=== PATIENT | male | born 1930 | race Caucasian/White ===

== ENCOUNTER → 2017-07-12 | Outpatient (CLI) | payer MEDICARE, OTHER ==
[2017-07-12 15:45] LABS: BILIRUBIN,URINE NEGATIVE (NEGATIVE); CLARITY,URINE CLEAR; COLOR,URINE YELLOW; GLUCOSE, URINE (UA) NEGATIVE (NEGATIVE); KETONES,URINE NEGATIVE (NEGATIVE); LEUKOCYTE ESTERASE ,URINE NEGATIVE (NEGATIVE); NITRITE,URINE NEGATIVE (NEGATIVE); PH,URINE 5 (5-9); PROTEIN,URINE 1+ (NEGATIVE); UROBILINOGEN,URINE NORMAL (NORMAL)
[2017-07-12 15:46] LABS: BASOPHILS % (AUTO) 0 % (0-10); EOSINOPHILS # (AUTO) 0.1 10^3/uL (0.0-0.3); EOSINOPHILS % (AUTO) 1 % (0-10); HEMATOCRIT 33 % (35-52); HEMOGLOBIN 10.1 G/DL (11.5-16.0); LYMPHOCYTES % (AUTO) 24 % (12-44); MEAN CORPUSCULAR HEMOGLOBIN 25 PG (25-34); MEAN CORPUSCULAR HGB CONC 30 G/DL (32-36); MEAN CORPUSCULAR VOLUME 81 FL (80-99); MEAN PLATELET VOLUME 9.2 FL (7.4-10.4); MONOCYTES # (AUTO) 0.5 X 10^3 (0.0-1.0); MONOCYTES % (AUTO) 6 % (0-12); NEUTROPHILS # (AUTO) 5.6 X 10^3 (1.8-7.8); NEUTROPHILS % (AUTO) 69 % (42-75); PLATELET COUNT 183 10^3/uL (130-400); RED BLOOD COUNT 4.11 10^6/uL (4.35-5.85); RED CELL DISTRIBUTION WIDTH 18.1 % (10.0-14.5); WHITE BLOOD COUNT 8.1 10^3/uL (4.3-11.0)
[2017-07-12 15:51] LABS: BACTERIA,URINE NEGATIVE /HPF
[2017-07-12 16:04] LABS: ALBUMIN 2.9 GM/DL (3.2-4.5); BILIRUBIN,TOTAL 0.3 MG/DL (0.1-1.0); CALCIUM 8.2 MG/DL (8.5-10.1); CREATININE SERUM 1.41 MG/DL (0.60-1.30); POTASSIUM 5.5 MMOL/L (3.6-5.0); TOTAL PROTEIN 5.4 GM/DL (6.4-8.2)
== END ==
LOC: EDSEX 15:36 → LABNPT 15:36
PROVIDERS: ATTEND Family Medicine
DX: R11.2 Nausea with vomiting, unspecified (principal); E78.5 Hyperlipidemia, unspecified
CPT/HCPCS: 80053; 81000; 85025

== ENCOUNTER → 2017-09-20 | Outpatient (CLI) | payer MEDICARE | LOC: LAB 12:20 | PROVIDERS: ATTEND Surgery | DX: E11.621 Type 2 diabetes mellitus with foot ulcer (principal); L97.512 Non-pressure chronic ulcer of other part of right foot with fat layer exposed | CPT/HCPCS: 36415; 83036 ==

== ENCOUNTER → 2017-09-20 | Outpatient (CLI) | payer MEDICARE | LOC: WOUNDCARE 09:25 | PROVIDERS: ATTEND Surgery | DX: L89.623 Pressure ulcer of left heel, stage 3 (principal); E11.621 Type 2 diabetes mellitus with foot ulcer; I70.235 Atherosclerosis of native arteries of right leg with ulceration of other part of foot; L97.512 Non-pressure chronic ulcer of other part of right foot with fat layer exposed; C44.219 Basal cell carcinoma of skin of left ear and external auricular canal; B91 Sequelae of poliomyelitis | CPT/HCPCS: 11042 ==

== ENCOUNTER → 2017-09-27 | Outpatient (CLI) | payer MEDICARE ==
--- NOTE | 2017-09-27 11:57 | Diagnostic Imaging Report ---
INDICATION: Peripheral vascular disease. FINDINGS: Noninvasive study performed. Segmental limb pressures showed unobtainable pressures in the right calf and ankle and digital level. Diminished signal and pressure on the left side in the digital region was seen, and pressures were not obtainable at the ankle region. There is degradation of the waveforms in the right calf and ankle and digital region. IMPRESSION: Findings compatible with significant peripheral vascular disease, worse on the right side as above. Consider CTA for further evaluation as warranted. Dictated by: Dictated on workstation # [id number]
== END ==
LOC: RAD 09:09
PROVIDERS: ATTEND Surgery
DX: C44.129 Squamous cell carcinoma of skin of left eyelid, including canthus (principal); I70.235 Atherosclerosis of native arteries of right leg with ulceration of other part of foot; E11.621 Type 2 diabetes mellitus with foot ulcer; L97.512 Non-pressure chronic ulcer of other part of right foot with fat layer exposed; L89.623 Pressure ulcer of left heel, stage 3; B91 Sequelae of poliomyelitis
CPT/HCPCS: 93923

== ENCOUNTER → 2017-10-04 | Outpatient (CLI) | payer MEDICARE | LOC: WOUNDCARE 09:58 | PROVIDERS: ATTEND Surgery | DX: E11.621 Type 2 diabetes mellitus with foot ulcer (principal); L89.623 Pressure ulcer of left heel, stage 3; L97.512 Non-pressure chronic ulcer of other part of right foot with fat layer exposed; I70.235 Atherosclerosis of native arteries of right leg with ulceration of other part of foot; C44.219 Basal cell carcinoma of skin of left ear and external auricular canal; B91 Sequelae of poliomyelitis | CPT/HCPCS: 11042 ==

== ENCOUNTER → 2017-10-10 | Outpatient (CLI) | payer MEDICARE | LOC: WOUNDCARE 13:47 | PROVIDERS: ATTEND Surgery | DX: E11.621 Type 2 diabetes mellitus with foot ulcer (principal); L97.512 Non-pressure chronic ulcer of other part of right foot with fat layer exposed; L89.623 Pressure ulcer of left heel, stage 3; I70.235 Atherosclerosis of native arteries of right leg with ulceration of other part of foot; C44.219 Basal cell carcinoma of skin of left ear and external auricular canal; B91 Sequelae of poliomyelitis | CPT/HCPCS: 99213 ==

== ENCOUNTER → 2017-10-18 | Outpatient (CLI) | payer MEDICARE | LOC: WOUNDCARE 09:42 | PROVIDERS: ATTEND Surgery | DX: E11.621 Type 2 diabetes mellitus with foot ulcer (principal); L89.623 Pressure ulcer of left heel, stage 3; L97.512 Non-pressure chronic ulcer of other part of right foot with fat layer exposed; I70.235 Atherosclerosis of native arteries of right leg with ulceration of other part of foot; C44.129 Squamous cell carcinoma of skin of left eyelid, including canthus; B91 Sequelae of poliomyelitis | CPT/HCPCS: 11042 ==

== ENCOUNTER → 2017-11-01 | Outpatient (CLI) | payer MEDICARE | LOC: WOUNDCARE 09:54 | PROVIDERS: ATTEND Surgery | DX: E11.621 Type 2 diabetes mellitus with foot ulcer (principal); L97.512 Non-pressure chronic ulcer of other part of right foot with fat layer exposed; I70.235 Atherosclerosis of native arteries of right leg with ulceration of other part of foot; B91 Sequelae of poliomyelitis | CPT/HCPCS: 99212 ==

== ENCOUNTER → 2017-11-22 | Outpatient (CLI) | payer MEDICARE | LOC: WOUNDCARE 10:43 | PROVIDERS: ATTEND Surgery | DX: L97.512 Non-pressure chronic ulcer of other part of right foot with fat layer exposed (principal); L03.031 Cellulitis of right toe; E11.621 Type 2 diabetes mellitus with foot ulcer; I70.235 Atherosclerosis of native arteries of right leg with ulceration of other part of foot; B91 Sequelae of poliomyelitis | CPT/HCPCS: 11042; 87070; 87075; 87077; 87186; 87205 ==

== ENCOUNTER → 2017-12-06 | Outpatient (CLI) | payer MEDICARE | LOC: WOUNDCARE 10:26 | PROVIDERS: ATTEND Surgery | DX: E11.621 Type 2 diabetes mellitus with foot ulcer (principal); I70.235 Atherosclerosis of native arteries of right leg with ulceration of other part of foot; L97.514 Non-pressure chronic ulcer of other part of right foot with necrosis of bone; B91 Sequelae of poliomyelitis | CPT/HCPCS: 11044 ==

== ENCOUNTER → 2017-12-12 | Outpatient (CLI) | payer MEDICARE | LOC: WOUNDCARE 10:29 | PROVIDERS: ATTEND Surgery | DX: E11.621 Type 2 diabetes mellitus with foot ulcer (principal); L97.512 Non-pressure chronic ulcer of other part of right foot with fat layer exposed; I70.235 Atherosclerosis of native arteries of right leg with ulceration of other part of foot; B91 Sequelae of poliomyelitis | CPT/HCPCS: 11042; 87070; 87075; 87077; 87205 ==

== ENCOUNTER → 2017-12-20 | Outpatient (CLI) | payer MEDICARE | LOC: WOUNDCARE 10:34 | PROVIDERS: ATTEND Surgery | DX: L97.512 Non-pressure chronic ulcer of other part of right foot with fat layer exposed (principal); E11.621 Type 2 diabetes mellitus with foot ulcer; I70.235 Atherosclerosis of native arteries of right leg with ulceration of other part of foot; B91 Sequelae of poliomyelitis | CPT/HCPCS: 11042 ==

== ENCOUNTER → 2017-12-25 | Outpatient (CLI) | payer MEDICARE | LOC: WOUNDCARE 13:35 | PROVIDERS: ATTEND Surgery | DX: E11.621 Type 2 diabetes mellitus with foot ulcer (principal); I70.235 Atherosclerosis of native arteries of right leg with ulceration of other part of foot; L97.512 Non-pressure chronic ulcer of other part of right foot with fat layer exposed; B91 Sequelae of poliomyelitis | CPT/HCPCS: 11042; 87070; 87075; 87205 ==

== ENCOUNTER → 2018-01-03 | Outpatient (CLI) | payer MEDICARE | LOC: WOUNDCARE 10:38 | PROVIDERS: ATTEND Surgery | DX: E11.621 Type 2 diabetes mellitus with foot ulcer (principal); L97.512 Non-pressure chronic ulcer of other part of right foot with fat layer exposed; I70.235 Atherosclerosis of native arteries of right leg with ulceration of other part of foot; B91 Sequelae of poliomyelitis | CPT/HCPCS: 11042 ==

== ENCOUNTER → 2018-01-10 | Outpatient (CLI) | payer MEDICARE | LOC: WOUNDCARE 10:34 | PROVIDERS: ATTEND Nurse Practitioner | DX: E11.621 Type 2 diabetes mellitus with foot ulcer (principal); L97.512 Non-pressure chronic ulcer of other part of right foot with fat layer exposed; I70.235 Atherosclerosis of native arteries of right leg with ulceration of other part of foot; B91 Sequelae of poliomyelitis | CPT/HCPCS: 11042 ==

== ENCOUNTER 2018-01-17 11:53 | Outpatient (RCR) | payer MEDICARE ==
[2018-01-10] MEDS: ACETAMINOPHEN 500 MG TAB (TYLENOL) PO PRN (12:51)
[2018-01-10] MEDS: FERRIC CARBOXYMALTOSE INJ 750 MG in NS (IVPB) 250 ML IV SCH (13:11)
[2018-01-10 14:45] VITALS: BP 116/74
[2018-01-17 11:50] VITALS: BP 135/63
[~2018-01-17 11:53] MED LIST: diphenhydrAMINE 50 MG/ML INJ (BENADRYL) IV PRN
[2018-01-17] MEDS: ACETAMINOPHEN 500 MG TAB (TYLENOL) PO PRN (12:01)
[2018-01-17] MEDS: FERRIC CARBOXYMALTOSE INJ 750 MG in NS (IVPB) 250 ML IV SCH (12:06)
[2018-01-17 12:50] VITALS: BP 131/75
== END 2018-01-17 13:23 | disposition home or self-care (01) ==
LOC: SDC 11:53
PROVIDERS: ATTEND Internal Medicine Nephrology
DX: D50.9 Iron deficiency anemia, unspecified (principal); D63.1 Anemia in chronic kidney disease; N18.3 Chronic kidney disease, stage 3 (moderate)
CPT/HCPCS: 96365; 96366; 96374; 96375

== ENCOUNTER → 2018-01-17 | Outpatient (CLI) | payer MEDICARE | LOC: WOUNDCARE 10:32 | PROVIDERS: ATTEND Surgery | DX: E11.621 Type 2 diabetes mellitus with foot ulcer (principal); I70.235 Atherosclerosis of native arteries of right leg with ulceration of other part of foot; L97.512 Non-pressure chronic ulcer of other part of right foot with fat layer exposed; B91 Sequelae of poliomyelitis | CPT/HCPCS: 11042 ==

== ENCOUNTER → 2018-01-24 | Outpatient (CLI) | payer MEDICARE | LOC: WOUNDCARE 10:46 | PROVIDERS: ATTEND Surgery | DX: E11.621 Type 2 diabetes mellitus with foot ulcer (principal); I70.235 Atherosclerosis of native arteries of right leg with ulceration of other part of foot; L97.512 Non-pressure chronic ulcer of other part of right foot with fat layer exposed; B91 Sequelae of poliomyelitis | CPT/HCPCS: 99213 ==

== ENCOUNTER → 2018-01-31 | Outpatient (CLI) | payer MEDICARE | LOC: WOUNDCARE 10:18 | PROVIDERS: ATTEND Nurse Practitioner | DX: E11.621 Type 2 diabetes mellitus with foot ulcer (principal); L97.512 Non-pressure chronic ulcer of other part of right foot with fat layer exposed; I70.235 Atherosclerosis of native arteries of right leg with ulceration of other part of foot; B91 Sequelae of poliomyelitis | CPT/HCPCS: 99212 ==

== ENCOUNTER 2018-03-27 08:00 | Inpatient (IN) | payer MEDICARE ==
[~2018-03-27] VITALS: Ht 175.3 cm; Wt 94.0 kg
[2018-03-27] MEDS ORDERED: NS IV 1000 ML 1,000 ML IV ONE (08:18)
[2018-03-27] MEDS ORDERED: KETOROLAC 30 MG/ML VIAL IVP STA (08:21)
--- NOTE | 2018-03-27 08:28 | ED General ---
General Chief Complaint: Fever-Adult/Adol Stated Complaint: FEVER,SOA Source of Information: Patient, EMS Exam Limitations: No Limitations History of Present Illness Date Seen by Provider: Mar 27, 2018 Time Seen by Provider: 08:08 Initial Comments Here by EMS from [facility] with report of intermittent fever over the last couple of days and has left-sided neck pain. Reportedly is had some recent cough and overall not feeling well. No report of vomiting or diarrhea. Denies recent falls or injuries. Timing/Duration: 2-3 Days Severity: Moderate Modifying Factors: improves with Medication Associated Systoms: No Chest Pain; Cough, Fever/Chills; No Headaches, No Nausea /Vomiting, No Shortness of Air, No Weakness Allergies and Home Medications Allergies Coded Allergies: No Known Drug Allergies (Unverified , 01/10/18) Patient Home Medication List Home Medication List Reviewed: Yes Review of Systems Review of Systems Constitutional: see HPI; No chills; fever; No weakness EENTM: no symptoms reported Respiratory: cough; No short of breath; wheezing Cardiovascular: No chest pain, No palpitations Gastrointestinal: No abdominal pain, No nausea, No vomiting Genitourinary: no symptoms reported Musculoskeletal: muscle pain; No muscle weakness; neck pain Skin: No change in color, No lesions Psychiatric/Neurological: Denies Headache, Denies Weakness All Other Systems Reviewed Negative Unless Noted: Yes Past Bkkxoyx-Gifghl-Zyemmp Hx Past Med/Social Hx: Reviewed Nursing Past Med/Soc Hx Patient Social History Alcohol Use: Denies Use Alcohol Beverage of Choice: Wine Smoking Status: Never a Smoker Past Medical History Surgeries: Yes Gallbladder Respiratory: Yes Sleep Apnea, COPD Cardiac: Yes Atrial Fibrillation, Coronary Artery Disease, High Cholesterol, Hypertension, Peripheral Vascular Neurological: Yes (polio) Genitourinary: Yes Benign Prostatic Hyperpl, Renal Failure Gastrointestinal: Yes Gastroesophageal Reflux Endocrine: Yes Diabetes, Insulin dep Psychosocial: Yes Depression Family Medical History Reviewed Nursing Family Hx No Pertinent Family Hx Physical Exam-Suspected Sepsis Physical Exam Vital Signs Vital Signs - First Documented 03/27/18 08:10 Temp 98.4 Pulse 96 Resp 18 B/P (MAP) 127/50 (75) Pulse Ox 96 O2 Delivery Nasal Cannula O2 Flow Rate 2.00 Capillary Refill : Height, Weight, BMI Height: 0'0.00" Weight: 0lbs. 0.0oz. [id number]; BMI Method: General Appearance: WD/WN, Mild Distress HEENT: PERRL/EOMI, TMs Normal, Pharynx Normal Neck: No Lymphadenopathy (L), No Lymphadenopathy (R); Tender Lateral (left- sided); No Tender Midline Respiratory: No Respiratory Distress, Crackles, Wheezing (few trace) Cardiovascular: Regular Rate, Rhythm, No Murmur Gastrointestinal: Non Tender, Soft Back: Normal Inspection, No CVA Tenderness, No Vertebral Tenderness Extremity: Non Tender, No Calf Tenderness, No Pedal Edema Neurologic/Psychiatric: Alert, Oriented x3 Skin: normal color, warm/dry Focused Exam Lactate Level 03/27/18 08:45: Lactic Acid Level 0.69 Lactic Acid Level Laboratory Tests Test 03/27/18 08:45 Lactic Acid Level 0.69 MMOL/L (0.50-2.00) Progress/Results/Core Measures Suspected Sepsis SIRS Temperature: Pulse: Respiratory Rate: Laboratory Tests 03/27/18 08:20: White Blood Count 13.4H Blood Pressure / Mean: 03/27/18 08:45: Lactic Acid Level 0.69 Laboratory Tests 03/27/18 08:20: Creatinine 1.84H, INR Comment 1.2, Platelet Count 244, Total Bilirubin 0.6 Results/Orders Lab Results Laboratory Tests Test 03/27/18 08:20 03/27/18 08:45 Range/Units White Blood Count 13.4 H 4.3-11.0 10^3/uL Red Blood Count 4.38 4.35-5.85 10^6/uL Hemoglobin 11.2 L 13.3-17.7 G/DL Hematocrit 35 L 40-54 % Mean Corpuscular Volume 80 80-99 FL Mean Corpuscular Hemoglobin 26 25-34 PG Mean Corpuscular Hemoglobin Concent 32 32-36 G/DL Red Cell Distribution Width 17.4 H 10.0-14.5 % Platelet Count 244 130-400 10^3/uL Mean Platelet Volume 8.8 7.4-10.4 FL Neutrophils (%) (Auto) 79 H 42-75 % Lymphocytes (%) (Auto) 13 12-44 % Monocytes (%) (Auto) 8 0-12 % Eosinophils (%) (Auto) 1 0-10 % Basophils (%) (Auto) 0 0-10 % Neutrophils # (Auto) 10.5 H 1.8-7.8 X 10^3 Lymphocytes # (Auto) 1.7 1.0-4.0 X 10^3 Monocytes # (Auto) 1.0 0.0-1.0 X 10^3 Eosinophils # (Auto) 0.1 0.0-0.3 10^3/uL Basophils # (Auto) 0.0 0.0-0.1 10^3/uL Prothrombin Time 15.5 H 12.2-14.7 SEC INR Comment 1.2 0.8-1.4 Activated Partial Thromboplast Time 32 24-35 SEC Sodium Level 138 135-145 MMOL/L Potassium Level 4.4 3.6-5.0 MMOL/L Chloride Level 105 98-107 MMOL/L Carbon Dioxide Level 21 21-32 MMOL/L Anion Gap 12 5-14 MMOL/L Blood Urea Nitrogen 44 H 7-18 MG/DL Creatinine 1.84 H 0.60-1.30 MG/DL Estimat Glomerular Filtration Rate 35 BUN/Creatinine Ratio 24 Glucose Level 128 H 70-105 MG/DL Calcium Level 9.3 8.5-10.1 MG/DL Corrected Calcium 9.6 8.5-10.1 MG/DL Total Bilirubin 0.6 0.1-1.0 MG/DL Aspartate Amino Transf (AST/SGOT) 37 H 5-34 U/L Alanine Aminotransferase (ALT/SGPT) 44 0-55 U/L Alkaline Phosphatase 160 H 40-136 U/L Total Protein 7.3 6.4-8.2 GM/DL Albumin 3.6 3.2-4.5 GM/DL Lactic Acid Level 0.69 0.50-2.00 MMOL/L Micro Results Microbiology 03/27/18 Influenza Types A,B Antigen (YVAN) - Final, Complete My Orders Orders - ERENDIRA DEY MD Cbc With Automated Diff (03/27/18 08:16) Comprehensive Metabolic Panel (03/27/18 08:16) Blood Culture (03/27/18 08:16) Sputum Culture (03/27/18 08:16) Urinalysis (03/27/18 08:16) Urine Culture (03/27/18 08:16) Protime With Inr (03/27/18 08:16) Partial Thromboplastin Time (03/27/18 08:16) Chest 1 View, Ap/Pa Only (03/27/18 08:16) Saline Lock/Iv-Start (03/27/18 08:16) Vital Signs Adult Sepsis Patie Q15M (03/27/18 08:16) O2 (03/27/18 08:16) Remove Rings In Anticipation O (03/27/18 08:16) Lactic Acid Analyzer (03/27/18 08:16) Influenza A And B Antigens (03/27/18 08:16) Ns Iv 1000 Ml (Sodium Chloride 0.9%) (03/27/18 08:18) Ketorolac Injection (Toradol Injection) (03/27/18 08:21) Fentanyl Injection (Sublimaze Injection (03/27/18 08:47) Ct Chest Wo (03/27/18 09:02) Cefepime Injection (Maxipime Injection) (03/27/18 10:04) Medications Given in ED Current Medications Medications Dose Ordered Sig/Claude Route Start Time Stop Time Status Last Admin Dose Admin Sodium Chloride 1,000 ml @ 0 mls/hr Q0M ONCE IV 03/27/18 08:18 03/27/18 08:19 DC 03/27/18 08:38 1,000 MLS/HR Vital Signs/I&O 03/27/18 03/27/18 08:10 08:10 Temp 98.4 Pulse 96 Resp 18 B/P (MAP) 127/50 (75) Pulse Ox 96 96 O2 Delivery Nasal Cannula O2 Flow Rate 2.00 2.00 Capillary Refill : Progress Note : Progress Note Seen and evaluated. IV, labs, blood cultures and lactic acid ordered. Influenza screen ordered. We will get a chest x-ray and UA. Normal saline 1 L bolus. Toradol 10 mg IV ordered. Monitor patient. Fentanyl 50 g IV ordered. Chest x-ray concerning for right hemidiaphragm elevation and concerns of pneumonia. CT noncontrast study ordered that her evaluation. 1010: CT results noted. Concerns for pneumonia on the right. I did discuss the case with Dr. Brewer. We will initiate cefepime 2 g IV and vancomycin due to history of MRSA infection on foot wound. Findings concerns discussed the patient and family who agree with plan. Patient to be admitted, inpatient status. Diagnostic Imaging Diagonstic Imaging: Xray Plain Films/CT/US/NM/MRI: chest Comments [facility], [place], [place] NAME: TRISTAN HUTTON [facility] REC#: [id number] PT STATUS: REG ER : 1930 PHYSICIAN: ERENDIRA DEY MD ADMIT DATE: 03/27/18/ER Draft Date of Exam:03/27/18 CHEST 1 VIEW, AP/PA ONLY INDICATION: Elevation of the right diaphragm present. There is right perihilar and basilar infiltrate in part atelectasis however pneumonia suspected. No focal left lung consolidation. IMPRESSION: There is right lung volume loss with an elevated diaphragm and at least some degree of atelectasis noted however superimposition of pneumonia in the right mid to lower lung is suspected, correlate clinically. Dictated on workstation # [id number] Dict: 03/27/18 0840 Trans: 03/27/18 0847 [facility], [place] 9168-1746 Interpreted by: ABIGAIL ROSS Electronically signed by: Aissatougonsmook Imaging: CT Plain Films/CT/US/NM/MRI: chest [facility] [place] [place] NAME: TRISTAN HUTTON [facility] REC#: [id number] PT STATUS: REG ER : 1930 PHYSICIAN: ERENDIRA DEY MD ADMIT DATE: 03/27/18/ER Draft Date of Exam:03/27/18 CT CHEST WO PROCEDURE: CT chest without contrast. TECHNIQUE: Multiple contiguous axial images were obtained through the chest without the use of intravenous contrast. INDICATION: Cough, fever. Comparison: Radiographs from the same day FINDINGS: The heart is normal in size. There is coronary atherosclerosis. There is mild aortic atherosclerosis. No aneurysm is seen. There are multiple calcified left hilar lymph nodes. There are mildly prominent mediastinal lymph nodes, including a right lower paratracheal lymph node measuring 13 mm in short axis (image 19 series 2). No axillary lymphadenopathy is seen. There is marked elevation of the right hemidiaphragm. There is dense consolidation seen in the posterior right upper lobe, right lower lobe and the middle lobe. There is a small right pleural effusion. The left lung demonstrates dependent atelectasis with a calcified granuloma posteriorly. There is a focal density at the posterior left lung apex which measures 1.7 cm in size. No pneumothorax is seen. Imaged portions of the upper abdomen demonstrate cholecystectomy changes. There is a simple appearing right renal cyst measuring up to 7.9 cm in size. There is a duodenal diverticulum. Impression: 1. Marked elevation of the right hemidiaphragm with dense consolidative opacities in the right lung. This is concerning for infection and atelectatic changes. 2. Focal density in the left lung apex, may represent small area of infection or chronic scarring. Recommend followup CT after symptoms improve to demonstrate resolution. 3. Small right pleural effusion. 4. Mildly prominent mediastinal lymph node, likely reactive. 5. Large simple appearing right renal cyst. Dictated on workstation # [id number] Dict: 03/27/1835 Trans: 03/27/18 0958 [facility] [place] 9239-8490 Interpreted by: OPAL SEAMAN MD Electronically signed by: Departure Communication (Admissions) Time/Spoke to Admitting Phy: 10:10 Impression Primary Impression: Right lower lobe pneumonia Qualified Codes: J18.1 - Lobar pneumonia, unspecified organism Additional Impression: Neck pain on left side Disposition: ADMITTED INPATIENT Condition: Stable Admissions Decision to Admit Reason: Admit from ER (General) Decision to Admit/Date: Mar 27, 2018 Time/Decision to Admit Time: 10:10 Departure-Patient Inst. Referrals: ISAAC MAR MD (PCP/Family) Primary Care Physician ERENDIRA DEY MD Mar 27, 2018 08:28
[2018-03-27 08:34] LABS: BASOPHILS % (AUTO) 0 % (0-10); EOSINOPHILS # (AUTO) 0.1 10^3/uL (0.0-0.3); EOSINOPHILS % (AUTO) 1 % (0-10); HEMATOCRIT 35 % (40-54); HEMOGLOBIN 11.2 G/DL (13.3-17.7); LYMPHOCYTES # (AUTO) 1.7 X 10^3 (1.0-4.0); LYMPHOCYTES % (AUTO) 13 % (12-44); MEAN CORPUSCULAR HEMOGLOBIN 26 PG (25-34); MEAN CORPUSCULAR HGB CONC 32 G/DL (32-36); MEAN CORPUSCULAR VOLUME 80 FL (80-99); MEAN PLATELET VOLUME 8.8 FL (7.4-10.4); MONOCYTES % (AUTO) 8 % (0-12); NEUTROPHILS # (AUTO) 10.5 X 10^3 (1.8-7.8); NEUTROPHILS % (AUTO) 79 % (42-75); PLATELET COUNT 244 10^3/uL (130-400); RED BLOOD COUNT 4.38 10^6/uL (4.35-5.85); RED CELL DISTRIBUTION WIDTH 17.4 % (10.0-14.5); WHITE BLOOD COUNT 13.4 10^3/uL (4.3-11.0)
[2018-03-27] MEDS ORDERED: fentaNYL INJECTION 100 MCG/2 ML AMP IVP STA (08:47)
--- NOTE | 2018-03-27 08:47 | Diagnostic Imaging Report ---
INDICATION: Elevation of the right diaphragm present. There is right perihilar and basilar infiltrate in part atelectasis however pneumonia suspected. No focal left lung consolidation. IMPRESSION: There is right lung volume loss with an elevated diaphragm and at least some degree of atelectasis noted however superimposition of pneumonia in the right mid to lower lung is suspected, correlate clinically. Dictated by: Dictated on workstation # [id number]
[2018-03-27 08:51] LABS: INR 1.2 (0.8-1.4); PROTHROMBIN TIME PATIENT 15.5 SEC (12.2-14.7)
[2018-03-27 08:56] LABS: ALBUMIN 3.6 GM/DL (3.2-4.5); BILIRUBIN,TOTAL 0.6 MG/DL (0.1-1.0); CALCIUM 9.3 MG/DL (8.5-10.1); CREATININE SERUM 1.84 MG/DL (0.60-1.30); POTASSIUM 4.4 MMOL/L (3.6-5.0); TOTAL PROTEIN 7.3 GM/DL (6.4-8.2)
--- NOTE | 2018-03-27 09:58 | Diagnostic Imaging Report ---
PROCEDURE: CT chest without contrast. TECHNIQUE: Multiple contiguous axial images were obtained through the chest without the use of intravenous contrast. INDICATION: Cough, fever. Comparison: Radiographs from the same day FINDINGS: The heart is normal in size. There is coronary atherosclerosis. There is mild aortic atherosclerosis. No aneurysm is seen. There are multiple calcified left hilar lymph nodes. There are mildly prominent mediastinal lymph nodes, including a right lower paratracheal lymph node measuring 13 mm in short axis (image 19 series 2). No axillary lymphadenopathy is seen. There is marked elevation of the right hemidiaphragm. There is dense consolidation seen in the posterior right upper lobe, right lower lobe and the middle lobe. There is a small right pleural effusion. The left lung demonstrates dependent atelectasis with a calcified granuloma posteriorly. There is a focal density at the posterior left lung apex which measures 1.7 cm in size. No pneumothorax is seen. Imaged portions of the upper abdomen demonstrate cholecystectomy changes. There is a simple appearing right renal cyst measuring up to 7.9 cm in size. There is a duodenal diverticulum. Impression: 1. Marked elevation of the right hemidiaphragm with dense consolidative opacities in the right lung. This is concerning for infection and atelectatic changes. 2. Focal density in the left lung apex, may represent small area of infection or chronic scarring. Recommend followup CT after symptoms improve to demonstrate resolution. 3. Small right pleural effusion. 4. Mildly prominent mediastinal lymph node, likely reactive. 5. Large simple appearing right renal cyst. Dictated by: Dictated on workstation # [id number]
[2018-03-27] MEDS ORDERED: CEFEPIME INJECTION 2,000 MG in NS (IVPB) 50 ML IV STA (10:04)
[2018-03-27 11:05] VITALS: BP 147/70
[2018-03-27] MEDS ORDERED: ONDANSETRON 4 MG/2 ML (SDV) Z0FRAN IVP PRN (11:15)
[2018-03-27] MEDS ORDERED: ACETAMINOPHEN 325 MG TABLET PO PRN (11:15)
[2018-03-27] MEDS ORDERED: NITR0.4T39 SL (11:21)
[2018-03-27] MEDS ORDERED: [UNRECOGNIZED DRUG - CODE] OU (11:21)
[2018-03-27] MEDS ORDERED: ALBU18HF2 INH (11:21)
[2018-03-27] MEDS ORDERED: TROL85CR14 TP (11:21)
[2018-03-27] MEDS ORDERED: SERT100T8 PO (11:21)
[2018-03-27] MEDS ORDERED: ATOR80TA76 PO (11:21)
[2018-03-27] MEDS ORDERED: ONDN4T PO (11:21)
[2018-03-27] MEDS ORDERED: OMEP20TA7 PO (11:21)
[2018-03-27] MEDS ORDERED: TIOT18CA2 IH (11:21)
[2018-03-27] MEDS ORDERED: HYDR-3812 PO (11:21)
[2018-03-27] MEDS ORDERED: PHEN177S52 PO (11:21)
[2018-03-27] MEDS ORDERED: FEXO180T84 PO (11:21)
[2018-03-27] MEDS ORDERED: INSU100V16 SQ (11:21)
[2018-03-27] MEDS ORDERED: DILT90TA PO (11:21)
[2018-03-27] MEDS ORDERED: METO50TA15 PO (11:21)
[2018-03-27] MEDS ORDERED: ALBU0.63 NEB ×2 (11:21)
[2018-03-27] MEDS ORDERED: CNC1KV IM (11:21)
[2018-03-27] MEDS ORDERED: LISI10TA2 PO (11:21)
[2018-03-27] MEDS ORDERED: TAMS0.4C98 PO (11:21)
[2018-03-27] MEDS ORDERED: CHOL10007 PO (11:21)
[2018-03-27] MEDS ORDERED: FOLI1TAB24 PO (11:21)
[2018-03-27] MEDS ORDERED: BUDE10.22 IH (11:21)
[2018-03-27] MEDS ORDERED: POLY17PO6 PO (11:21)
[2018-03-27] MEDS ORDERED: DOCU-143 PO (11:21)
[2018-03-27] MEDS ORDERED: ASPI-983 PO (11:21)
[2018-03-27] MEDS ORDERED: MULT-24 PO (11:21)
[2018-03-27] MEDS ORDERED: OMEG-105 PO (11:21)
[2018-03-27] MEDS ORDERED: GUAI600T86 PO (11:21)
[2018-03-27] MEDS ORDERED: FURO20TA4 PO (11:21)
[2018-03-27] MEDS ORDERED: VANCOMYCIN INJECTION 1,750 MG in NS IV 500 ML 500 ML IV NR (11:30)
[2018-03-27] MEDS: HYDROcodone/APAP 5 MG/325 MG (LORTAB) TAB PO PRN ×3 (11:43→23:39)
[2018-03-27 11:55] LABS: BILIRUBIN,URINE NEGATIVE (NEGATIVE); CLARITY,URINE CLEAR; COLOR,URINE AMBER; GLUCOSE, URINE (UA) NEGATIVE (NEGATIVE); KETONES,URINE NEGATIVE (NEGATIVE); LEUKOCYTE ESTERASE ,URINE 1+ (NEGATIVE); NITRITE,URINE NEGATIVE (NEGATIVE); PH,URINE 5 (5-9); PROTEIN,URINE 2+ (NEGATIVE); UROBILINOGEN,URINE NORMAL (NORMAL)
[2018-03-27] MEDS: NS IV 1000 ML 1,000 ML IV SCH (12:02)
[2018-03-27 12:03] LABS: BACTERIA,URINE NEGATIVE /HPF; HYALINE CASTS, URINE 0-2 /LPF; SQUAMOUS EPITHELIAL CELL,UR RARE /HPF; WBC,URINE RARE /HPF
--- NOTE | 2018-03-27 13:49 | History & Physical-Hospitalist ---
History of Present Illness HPI/Chief Complaint Pt is an 87yoCM who presented to the ER due to fever and shortness of breath. He was found to have a temperature of 101.2 at his residential and had been coughing for a few days so was brought in for evaluation. He states he had a cold for the past few days and he thought it was getting better yesterday but last night developed a fever and had a lot of sputum. He also complains of some left sided neck pain. He was found to have a RLL pneumonia and meet sepsis criteria so was admitted for further management. Source: patient Date Seen 03/27/18 Time Seen by a Provider: 15:00 Attending Physician Martha Brewer MD PCP Todd Esqueda MD Referring Physician Date of Admission Mar 27, 2018 at 10:31 Home Medications & Allergies Home Medications Reviewed patient Home Medication Reconciliation performed by pharmacy medication reconciliations soil conservation technician and/or nursing. Patients Allergies have been reviewed. Allergies Allergies Coded Allergies No Known Drug Allergies (Uzlnyxncqh18/20/18) Past Misotvu-Rbaejw-Ydiasu Hx Past Med/Social Hx: Reviewed Nursing Past Med/Soc Hx Patient Social History Alcohol Use: Denies Use Alcohol Beverage of Choice: Wine Recreational Drug Use: No Smoking Status: Never a Smoker Recent Foreign Travel: No Contact w/other who traveled: No Recent Hopitalizations: No Recent Infectious Disease Expo: No Past Medical History Surgeries: Gallbladder Cardiac: Atrial Fibrillation, Coronary Artery Disease, High Cholesterol, Hypertension, Peripheral Vascular Genitourinary: Benign Prostatic Hyperpl, Renal Failure Gastrointestinal: Gastroesophageal Reflux Musculoskeletal: Arthritis Endocrine: Diabetes, Insulin dep Psychosocial: Depression Family History Reviewed Nursing Family Hx No Pertinent Family Hx Review of Systems Constitutional: fever EENTM: No blurred vision, No double vision, No nose congestion, No throat pain Respiratory: see HPI, cough, phlegm; No short of breath Cardiovascular: No chest pain, No edema, No palpitations Gastrointestinal: No abdominal pain, No constipation, No diarrhea, No nausea, No vomiting Genitourinary: No dysuria, No frequency Musculoskeletal: No joint pain, No muscle pain Skin: No lesions, No rash Psychiatric/Neurological: Denies Headache, Denies Numbness, Denies Tingling Physical Exam Physical Exam Vital Signs Vital Signs - First Documented 03/27/18 03/27/18 08:10 13:57 Temp 98.4 Pulse 96 Resp 18 B/P (MAP) 127/50 (75) Pulse Ox 96 O2 Delivery Nasal Cannula O2 Flow Rate 2.00 FiO2 28 Capillary Refill : Less Than 3 Seconds Height, Weight, BMI Height: 5'9.00" Weight: 207lbs. 3.0oz. 93.290129wc; 30.6 BMI Method:Stated General Appearance: Chronically ill HEENT: PERRL/EOMI, Moist Mucous Membranes Neck: Non Tender, Supple Respiratory: Lungs Clear, No Respiratory Distress Cardiovascular: Regular Rate, Rhythm, No Murmur Gastrointestinal: Normal Bowel Sounds, Non Tender, Soft Extremity: Normal Capillary Refill, No Calf Tenderness Neurologic/Psychiatric: Alert, Oriented x3, Normal Mood/Affect Skin: Normal Color, Warm/Dry Results Results/Procedures Labs Laboratory Tests 03/27/18 08:20 03/28/18 03:45 Patient resulted labs reviewed. Imaging: Reviewed Imaging Report Assessment/Plan Admission Diagnosis Sepsis due to pneumonia Admission Status: Inpatient Order (span 2 midnights) Reason for Inpatient Admission: CURB 65 score of 2, hypoxic, requires IV abx Diagnosis/Problems Diagnosis/Problems (1) Sepsis Status: Acute Assessment & Plan: Tachycardic with leukocytosis on arrival Lactic acid normal and no hypotension PNA on XR Cultures obtained in ER Continue on Cefepime and Vanc given higher risk due to COPD and NH resident Qualifiers: Sepsis type: sepsis due to unspecified organism Qualified Codes: A41.9 - Sepsis, unspecified organism (2) Right lower lobe pneumonia Status: Acute Assessment & Plan: abx as above CURB65 score fo2 Qualifiers: Pneumonia type: due to unspecified organism Qualified Codes: J18.1 - Lobar pneumonia, unspecified organism (3) Non-insulin dependent type 2 diabetes mellitus Assessment & Plan: Denies insulin use but on MAR form [place] Will place on SSI (4) COPD (chronic obstructive pulmonary disease) Status: Chronic Assessment & Plan: Continue home inhalers MAT protocol Qualifiers: COPD type: unspecified COPD Qualified Codes: J44.9 - Chronic obstructive pulmonary disease, unspecified (5) Essential (primary) hypertension Assessment & Plan: Well controlled Trend Conitn home meds MARTHA BREWER MD Mar 27, 2018 13:49
[2018-03-27] MEDS ORDERED: RT-ALBUTEROL/IPRATROPIUM 3 ML (DUONEB) VIAL ONE (14:10)
[2018-03-27] MEDS ORDERED: NON-FORMULARY MEDICATION 1 EA EA (Ondansetron HCl (Zofran) 4 MG) PO PRN (14:30)
[2018-03-27] MEDS ORDERED: ONDANSETRON 4 MG (ZOFRAN) ORAL DISSOLVE TAB PO PRN (15:30)
[2018-03-27 15:47] VITALS: BP 137/65
[2018-03-27] MEDS ORDERED: INSULIN VIAL ASPART for PUMP 100 UNIT/ML VIAL SQ SCH (16:00)
[2018-03-27] MEDS: RT-ADVAIR HFA 45/21 MCG PER PUFF IH SCH (18:44)
[2018-03-27] MEDS: RT-ALBUTEROL/IPRATROPIUM 3 ML (DUONEB) VIAL INH SCH ×2 (18:44→21:30)
[2018-03-27 19:48] VITALS: BP 150/72
[2018-03-27] MEDS ORDERED: RT-ADVAIR HFA 115/21 MCG PER PUFF IH SCH (20:00)
[2018-03-27] MEDS: meTOprolol TARTRATE 50 MG (LOPRESSOR) TAB PO SCH (20:50)
[2018-03-27] MEDS: inSUlin ASPART (NovoLOG) 1 UNIT/0.01 ML (CHARGE PER UNIT) SC SCH (20:50)
[2018-03-27] MEDS: guaiFENesin (MUCINEX) 600 MG TAB PO SCH (20:50)
[2018-03-27] MEDS ORDERED: NON-FORMULARY MEDICATION 1 EA EA (Budesonide/Formoterol Fumarate (Symbicort 80-4.5 Mcg Inh IH SCH (21:00)
[2018-03-28 00:40] VITALS: BP 149/65
[2018-03-28] MEDS: RT-ALBUTEROL/IPRATROPIUM 3 ML (DUONEB) VIAL INH SCH ×6 (01:20→22:19)
[2018-03-28] MEDS: NS IV 1000 ML 1,000 ML IV SCH ×2 (03:25→14:35)
[2018-03-28 04:04] VITALS: BP 152/74
[2018-03-28 04:18] LABS: BASOPHILS % (AUTO) 0 % (0-10); EOSINOPHILS # (AUTO) 0.2 10^3/uL (0.0-0.3); EOSINOPHILS % (AUTO) 2 % (0-10); HEMATOCRIT 33 % (40-54); HEMOGLOBIN 10.3 G/DL (13.3-17.7); LYMPHOCYTES # (AUTO) 1.6 X 10^3 (1.0-4.0); LYMPHOCYTES % (AUTO) 15 % (12-44); MEAN CORPUSCULAR HEMOGLOBIN 25 PG (25-34); MEAN CORPUSCULAR HGB CONC 31 G/DL (32-36); MEAN CORPUSCULAR VOLUME 82 FL (80-99); MEAN PLATELET VOLUME 8.7 FL (7.4-10.4); MONOCYTES # (AUTO) 0.8 X 10^3 (0.0-1.0); MONOCYTES % (AUTO) 7 % (0-12); NEUTROPHILS # (AUTO) 7.9 X 10^3 (1.8-7.8); NEUTROPHILS % (AUTO) 75 % (42-75); PLATELET COUNT 210 10^3/uL (130-400); RED BLOOD COUNT 4.06 10^6/uL (4.35-5.85); RED CELL DISTRIBUTION WIDTH 16.9 % (10.0-14.5); WHITE BLOOD COUNT 10.5 10^3/uL (4.3-11.0)
[2018-03-28 04:36] LABS: CREATININE SERUM 1.74 MG/DL (0.60-1.30); POTASSIUM 4.3 MMOL/L (3.6-5.0)
[2018-03-28] MEDS: inSUlin ASPART (NovoLOG) 1 UNIT/0.01 ML (CHARGE PER UNIT) SC SCH ×4 (05:09→20:53)
[2018-03-28] MEDS: UMECLIDINIUM BROMIDE (INCRUSE ELLIPTA) 7'S IH SCH (06:49)
[2018-03-28] MEDS: RT-ADVAIR HFA 45/21 MCG PER PUFF IH SCH ×2 (06:49→18:58)
[2018-03-28 08:00] VITALS: BP 163/74
[2018-03-28] MEDS: guaiFENesin (MUCINEX) 600 MG TAB PO SCH ×2 (08:04→21:47)
[2018-03-28] MEDS: lisINopril 10 MG (PRINIVIL) TABLET PO SCH (08:04)
[2018-03-28] MEDS: DILTIAZEM 180 MG (CARDIZEM CD) CAP PO SCH (08:04)
[2018-03-28] MEDS: ATORVASTATIN 80 MG (LIPITOR) TABLET PO SCH (08:04)
[2018-03-28] MEDS: TAMSULOSIN 0.4 MG (FLOMAX) CAP PO SCH (08:04)
[2018-03-28] MEDS: SERTRALINE 100 MG (ZOLOFT) TAB PO SCH (08:04)
[2018-03-28] MEDS: ASPIRIN E.C. 81 MG (ECOTRIN) TAB PO SCH (08:05)
[2018-03-28] MEDS: meTOprolol TARTRATE 50 MG (LOPRESSOR) TAB PO SCH ×2 (08:05→21:47)
[2018-03-28] MEDS: FUROSEMIDE 20 MG (LASIX) TAB PO SCH (08:05)
[2018-03-28] MEDS: HYDROcodone/APAP 5 MG/325 MG (LORTAB) TAB PO PRN (08:06)
[2018-03-28] MEDS ORDERED: DILTIAZEM HCL 180 MG PO SCH (09:00)
[2018-03-28] MEDS ORDERED: TIOTROPIUM BROMIDE (SPIRIVA) 5'S INHALER IH SCH (09:00)
[2018-03-28] MEDS: CEFEPIME 2 GM/NS 50 ML IVPB IV SCH ×2 (10:11)
--- NOTE | 2018-03-28 10:27 | Progress Note-Hospitalist ---
Subjective HPI/CC On Admission Date Seen by Provider: Mar 28, 2018 Time Seen by Provider: 10:22 Pt is an 87yoCM who presented to the ER due to fever and shortness of breath. He was found to have a temperature of 101.2 at his [facility] and had been coughing for a few days so was brought in for evaluation. He states he had a cold for the past few days and he thought it was getting better yesterday but last night developed a fever and had a lot of sputum. He also complains of some left sided neck pain. He was found to have a RLL pneumonia and meet sepsis criteria so was admitted for further management. Subjective/Events-last exam Pt reports feeling better today but still having a cough and some sputum production. Still on oxygen. Focused Exam Lactate Level 03/27/18 08:45: Lactic Acid Level 0.69 Objective Exam Vital Signs Vital Signs Date Time Temp Pulse Resp B/P (MAP) Pulse Ox O2 Delivery O2 Flow Rate FiO2 03/28/18 08:10 Nasal Cannula 2.00 03/28/18 08:00 98.1 113 16 163/74 (103) 95 03/27/18 13:57 28 Capillary Refill : Less Than 3 Seconds General Appearance: WD/WN, Chronically ill Respiratory: Lungs Clear, No Respiratory Distress Cardiovascular: Regular Rate, Rhythm, No Murmur, Other (on oxygen) Gastrointestinal: Normal Bowel Sounds, Non Tender, Soft Neurologic/Psychiatric: Alert, Oriented x3 Results/Procedures Lab Laboratory Tests 03/28/18 03:45 Patient resulted labs reviewed. Imaging: Reviewed Imaging Report Assessment/Plan Assessment and Plan Assess & Plan/Chief Complaint Pneumonia Diagnosis/Problems Diagnosis/Problems (1) Sepsis Status: Acute Assessment & Plan: Leukocytosis resolved, afebrile PNA on XR Cultures pending Continue on Cefepime and Vanc Qualifiers: Sepsis type: sepsis due to unspecified organism Qualified Codes: A41.9 - Sepsis, unspecified organism (2) Right lower lobe pneumonia Status: Acute Assessment & Plan: abx as above CURB65 score of 2 Qualifiers: Pneumonia type: due to unspecified organism Qualified Codes: J18.1 - Lobar pneumonia, unspecified organism (3) Non-insulin dependent type 2 diabetes mellitus Assessment & Plan: Denies insulin use but on MAR form [place] Will place on SSI only (4) COPD (chronic obstructive pulmonary disease) Status: Chronic Assessment & Plan: Continue home inhalers MAT protocol Qualifiers: COPD type: unspecified COPD Qualified Codes: J44.9 - Chronic obstructive pulmonary disease, unspecified (5) Essential (primary) hypertension Assessment & Plan: Well [facility] Clinical Quality Measures DVT/VTE Risk/Contraindication: Risk Factor Score Per Nursin RFS Level Per Nursing on Admit: 4+=Very High MARTHA CAVAZOS MD Mar 28, 2018 10:27
[2018-03-28] MEDS: VANCOMYCIN 1250 MG/NS 250 ML IVPB IV SCH ×2 (11:28)
[2018-03-28] MEDS: CYCLOBENZAPRINE 10 MG (FLEXERIL) TAB PO PRN ×2 (11:29→19:59)
[2018-03-28 15:40] VITALS: BP 142/64
[2018-03-29] VITALS: BP 142/64
[2018-03-29] MEDS: HYDROcodone/APAP 5 MG/325 MG (LORTAB) TAB PO PRN ×3 (00:20→20:44)
[2018-03-29] MEDS: RT-ALBUTEROL/IPRATROPIUM 3 ML (DUONEB) VIAL INH SCH ×6 (03:10→21:54)
[2018-03-29] MEDS: NS IV 1000 ML 1,000 ML IV SCH ×3 (04:59→20:48)
[2018-03-29] MEDS: inSUlin ASPART (NovoLOG) 1 UNIT/0.01 ML (CHARGE PER UNIT) SC SCH ×4 (05:11→20:37)
[2018-03-29] MEDS: UMECLIDINIUM BROMIDE (INCRUSE ELLIPTA) 7'S IH SCH (06:36)
[2018-03-29] MEDS: RT-ADVAIR HFA 45/21 MCG PER PUFF IH SCH ×2 (06:36→18:41)
[2018-03-29] MEDS ORDERED: ARTIFICIAL TEARS OINT (LACRI-LUBE) 3.5 GM TUBE OU PRN (07:45)
[2018-03-29 08:00] VITALS: BP 157/80
[2018-03-29] MEDS: FUROSEMIDE 20 MG (LASIX) TAB PO SCH (09:26)
[2018-03-29] MEDS: ASPIRIN E.C. 81 MG (ECOTRIN) TAB PO SCH (09:26)
[2018-03-29] MEDS: SERTRALINE 100 MG (ZOLOFT) TAB PO SCH (09:26)
[2018-03-29] MEDS: meTOprolol TARTRATE 50 MG (LOPRESSOR) TAB PO SCH ×2 (09:26→20:44)
[2018-03-29] MEDS: lisINopril 10 MG (PRINIVIL) TABLET PO SCH (09:27)
[2018-03-29] MEDS: DILTIAZEM 180 MG (CARDIZEM CD) CAP PO SCH (09:27)
[2018-03-29] MEDS: ATORVASTATIN 80 MG (LIPITOR) TABLET PO SCH (09:27)
[2018-03-29] MEDS: TAMSULOSIN 0.4 MG (FLOMAX) CAP PO SCH (09:27)
[2018-03-29] MEDS: guaiFENesin (MUCINEX) 600 MG TAB PO SCH ×2 (09:27→20:44)
[2018-03-29] MEDS: CEFEPIME 2 GM/NS 50 ML IVPB IV SCH ×2 (10:32)
--- NOTE | 2018-03-29 11:46 | Progress Note-Hospitalist ---
Subjective HPI/CC On Admission Date Seen by Provider: Mar 29, 2018 Time Seen by Provider: 08:00 Pt is an 87yoCM who presented to the ER due to fever and shortness of breath. He was found to have a temperature of 101.2 at his [place] [facility] and had been coughing for a few days so was brought in for evaluation. He states he had a cold for the past few days and he thought it was getting better yesterday but last night developed a fever and had a lot of sputum. He also complains of some left sided neck pain. He was found to have a RLL pneumonia and meet sepsis criteria so was admitted for further management. Subjective/Events-last exam Patient reports sputum production about the same feeling slightly better and able to get off oxygen maintaining saturations. He denies chest pain pleuritic or otherwise and has been tolerating solids. He denies shortness of breath at rest. Focused Exam Lactate Level 03/27/18 08:45: Lactic Acid Level 0.69 Objective Exam Vital Signs Vital Signs Date Time Temp Pulse Resp B/P (MAP) Pulse Ox O2 Delivery O2 Flow Rate FiO2 03/29/18 10:42 93 Nasal Cannula 2.00 03/29/18 08:00 98.0 101 18 157/80 (105) 03/27/18 13:57 28 Capillary Refill : Less Than 3 Seconds General Appearance: No Apparent Distress, Obese Respiratory: No Accessory Muscle Use, No Respiratory Distress, Other (Sonorous rhonchi bilaterally left chest otherwise clear no wheezing appreciated. There are diminished breath sounds in the right lower lobe and right middle lobe areas right upper lobe relatively clear.) Cardiovascular: No JVD, Irregularly Irregular, Other (Soft 1 to 2/6 ejection murmur heard best at the left lower sternal border) Results/Procedures Lab Patient resulted labs reviewed. Imaging: Reviewed Imaging Report Assessment/Plan Assessment and Plan Assess & Plan/Chief Complaint (1) Sepsis Status: Acute Assessment & Plan: Leukocytosis resolved, afebrile PNA on XR Cultures pending Continue on Cefepime and Vanc patient responding to antibiotics with decreasing white count stable vital signs and improving hypoxemia. Qualifiers: Sepsis type: sepsis due to unspecified organism Qualified Codes: A41.9 - Sepsis, unspecified organism (2) Right lower lobe pneumonia Status: Acute Assessment & Plan: abx as above CURB65 score of 2 Qualifiers: Pneumonia type: due to unspecified organism Qualified Codes: J18.1 - Lobar pneumonia, unspecified organism (3) Non-insulin dependent type 2 diabetes mellitus Assessment & Plan: Denies insulin use but on MAR form NH Will place on SSI only (4) COPD (chronic obstructive pulmonary disease) Status: Chronic Assessment & Plan: Continue home inhalers MAT protocol Qualifiers: COPD type: unspecified COPD Qualified Codes: J44.9 - Chronic obstructive pulmonary disease, unspecified (5) Essential (primary) hypertension Assessment & Plan: Well controlled Trend [facility] Clinical Quality Measures DVT/VTE Risk/Contraindication: Risk Factor Score Per Nursin RFS Level Per Nursing on Admit: 4+=Very High GIFTY TESFAYE MD Mar 29, 2018 11:46
[2018-03-29] MEDS: VANCOMYCIN 1250 MG/NS 250 ML IVPB IV SCH ×2 (12:06)
[2018-03-29 16:00] VITALS: BP 144/72
[2018-03-30 00:12] VITALS: BP 127/71
[2018-03-30] MEDS: RT-ALBUTEROL/IPRATROPIUM 3 ML (DUONEB) VIAL INH SCH ×6 (02:35→22:15)
[2018-03-30] MEDS: inSUlin ASPART (NovoLOG) 1 UNIT/0.01 ML (CHARGE PER UNIT) SC SCH ×4 (05:18→20:53)
[2018-03-30] MEDS: UMECLIDINIUM BROMIDE (INCRUSE ELLIPTA) 7'S IH SCH (07:18)
[2018-03-30] MEDS: RT-ADVAIR HFA 45/21 MCG PER PUFF IH SCH ×2 (07:18→19:00)
[2018-03-30 08:00] VITALS: BP 150/72
[2018-03-30] MEDS: SERTRALINE 100 MG (ZOLOFT) TAB PO SCH (08:48)
[2018-03-30] MEDS: guaiFENesin (MUCINEX) 600 MG TAB PO SCH ×2 (08:48→20:53)
[2018-03-30] MEDS: lisINopril 10 MG (PRINIVIL) TABLET PO SCH (08:48)
[2018-03-30] MEDS: ASPIRIN E.C. 81 MG (ECOTRIN) TAB PO SCH (08:48)
[2018-03-30] MEDS: ATORVASTATIN 80 MG (LIPITOR) TABLET PO SCH (08:48)
[2018-03-30] MEDS: FUROSEMIDE 20 MG (LASIX) TAB PO SCH (08:48)
[2018-03-30] MEDS: TAMSULOSIN 0.4 MG (FLOMAX) CAP PO SCH (08:49)
[2018-03-30] MEDS: DILTIAZEM 180 MG (CARDIZEM CD) CAP PO SCH (08:49)
[2018-03-30] MEDS: meTOprolol TARTRATE 50 MG (LOPRESSOR) TAB PO SCH ×2 (08:49→20:53)
[2018-03-30] MEDS: HYDROcodone/APAP 5 MG/325 MG (LORTAB) TAB PO PRN (08:52)
--- NOTE | 2018-03-30 10:24 | Progress Note-Hospitalist ---
Subjective HPI/CC On Admission Date Seen by Provider: Mar 30, 2018 Time Seen by Provider: 10:19 Pt is an 87yoCM who presented to the ER due to fever and shortness of breath. He was found to have a temperature of 101.2 at his skilled nursing and had been coughing for a few days so was brought in for evaluation. He states he had a cold for the past few days and he thought it was getting better yesterday but last night developed a fever and had a lot of sputum. He also complains of some left sided neck pain. He was found to have a RLL pneumonia and meet sepsis criteria so was admitted for further management. Subjective/Events-last exam Patient voices no complaints except for some left-sided neck pain. He has used Voltaren gel in the past with benefit. This is a symptom that has come and gone in the past for him and is not new. He denies any associated upper extremity pain. Cough is diminishing with decreasing yellowish sputum. No blood is noted. She denies night sweats chills or fever. Objective Exam Vital Signs Vital Signs Date Time Temp Pulse Resp B/P (MAP) Pulse Ox O2 Delivery O2 Flow Rate FiO2 03/30/18 08:00 Nasal Cannula 2.00 03/30/18 08:00 98.4 114 20 150/72 (98) 96 03/27/18 13:57 28 Capillary Refill : Less Than 3 Seconds General Appearance: No Apparent Distress, Obese Neck: Other (Mild discomfort over the left trapezius no induration erythema or mass effect noted.) Respiratory: Other Cardiovascular: No Edema, No Gallop, No JVD, No Murmur, Irregularly Irregular Results/Procedures Lab Patient resulted labs reviewed. Imaging: Reviewed Imaging Report Assessment/Plan Assessment and Plan Assess & Plan/Chief Complaint (1) Sepsis Status: Resolved Assessment & Plan: Leukocytosis resolved, afebrile PNA on XR Cultures pending Continue on Cefepime and Vanc patient responding to antibiotics with decreasing white count stable vital signs and improving hypoxemia. Qualifiers: Sepsis type: sepsis due to unspecified organism Qualified Codes: A41.9 - Sepsis, unspecified organism (2) Right lower lobe pneumonia Status: Acute improving continue IV antibiotics. Patient encouraged to sit up in the chair and we'll consult physical therapy for ambulation tomorrow. Assessment & Plan: abx as above CURB65 score of 2 Qualifiers: Pneumonia type: due to unspecified organism Qualified Codes: J18.1 - Lobar pneumonia, unspecified organism (3) Non-insulin dependent type 2 diabetes mellitus Assessment & Plan: Denies insulin use but on MAR form NH Will place on SSI only (4) COPD (chronic obstructive pulmonary disease) Status: Chronic Assessment & Plan: Continue home inhalers MAT protocol Qualifiers: COPD type: unspecified COPD Qualified Codes: J44.9 - Chronic obstructive pulmonary disease, unspecified (5) Essential (primary) hypertension Assessment & Plan: Well controlled Trend Conitnue home meds Acute kidney injury secondary to dehydration improving will DC IV fluids repeat labs in the morning. Clinical Quality Measures DVT/VTE Risk/Contraindication: Risk Factor Score Per Nursin RFS Level Per Nursing on Admit: 4+=Very High GIFTY TESFAYE MD Mar 30, 2018 10:23
[2018-03-30 11:03] VITALS: BP 150/72
[2018-03-30] MEDS: CEFEPIME 2 GM/NS 50 ML IVPB IV SCH ×2 (11:20)
[2018-03-30] MEDS: DICLOFENAC 1% GEL 100 GM (VOLTAREN) TUBE TOP SCH ×3 (11:20→20:52)
[2018-03-30] MEDS: CATHETER FLUSH 10 ML SYR IV SCH ×2 (11:24→20:54)
[2018-03-30] MEDS ORDERED: RT-ALBUTEROL/IPRATROPIUM 3 ML (DUONEB) VIAL INH PRN (12:00)
[2018-03-30 16:05] VITALS: BP 139/65
[2018-03-30 20:14] VITALS: BP 149/67
[2018-03-31 00:12] VITALS: BP 146/71
[2018-03-31] MEDS: RT-ALBUTEROL/IPRATROPIUM 3 ML (DUONEB) VIAL INH SCH ×3 (01:57→10:37)
[2018-03-31] MEDS: inSUlin ASPART (NovoLOG) 1 UNIT/0.01 ML (CHARGE PER UNIT) SC SCH (06:04)
[2018-03-31] MEDS: CATHETER FLUSH 10 ML SYR IV SCH (06:05)
[2018-03-31 06:08] LABS: BASOPHILS # (AUTO) 0.1 10^3/uL (0.0-0.1); BASOPHILS % (AUTO) 0 % (0-10); EOSINOPHILS # (AUTO) 0.5 10^3/uL (0.0-0.3); EOSINOPHILS % (AUTO) 4 % (0-10); HEMATOCRIT 31 % (40-54); HEMOGLOBIN 10.1 G/DL (13.3-17.7); LYMPHOCYTES % (AUTO) 15 % (12-44); MEAN CORPUSCULAR HEMOGLOBIN 26 PG (25-34); MEAN CORPUSCULAR HGB CONC 32 G/DL (32-36); MEAN CORPUSCULAR VOLUME 80 FL (80-99); MEAN PLATELET VOLUME 8.9 FL (7.4-10.4); MONOCYTES # (AUTO) 0.9 X 10^3 (0.0-1.0); MONOCYTES % (AUTO) 7 % (0-12); NEUTROPHILS # (AUTO) 10.1 X 10^3 (1.8-7.8); NEUTROPHILS % (AUTO) 75 % (42-75); PLATELET COUNT 312 10^3/uL (130-400); RED BLOOD COUNT 3.93 10^6/uL (4.35-5.85); RED CELL DISTRIBUTION WIDTH 16.8 % (10.0-14.5); WHITE BLOOD COUNT 13.5 10^3/uL (4.3-11.0)
[2018-03-31 07:00] LABS: ALBUMIN 3.1 GM/DL (3.2-4.5); BILIRUBIN,TOTAL 0.3 MG/DL (0.1-1.0); CALCIUM 8.8 MG/DL (8.5-10.1); CREATININE SERUM 1.49 MG/DL (0.60-1.30); POTASSIUM 4.3 MMOL/L (3.6-5.0); TOTAL PROTEIN 6.4 GM/DL (6.4-8.2)
[2018-03-31] MEDS: UMECLIDINIUM BROMIDE (INCRUSE ELLIPTA) 7'S IH SCH (07:28)
[2018-03-31] MEDS: RT-ADVAIR HFA 45/21 MCG PER PUFF IH SCH (07:28)
[2018-03-31 08:00] VITALS: BP 139/69
--- NOTE | 2018-03-31 09:22 | Physical Therapy Evaluation ---
PT Evaluation-General Medical Diagnosis Admission Date Mar 27, 2018 at 10:31 Medical Diagnosis: RLL Pneumonia Onset Date: Mar 27, 2018 Therapy Diagnosis Therapy Diagnosis: limited mobility Height/Weight Height (Feet): 5 Height (Inches): 9.00 Weight (Pounds): 207 Weight (Ounces): 3.0 Precautions Precautions/Isolations: Fall Prevention, Standard Precautions, Pressure Ulcer Weight Bear Status Right Lower Extremity: Right Full Weight Bearing Left Lower Extremity: Left Full Weight Bearing walker Referral Physician: Swathi Brewer MD Reason for Referral: Evaluation/Treatment Medical History Pertinent Medical History: Atrial Fib, CAD, DM, HTN, PVD Additional Medical History hypercholesterolemia, BPH, renal failure, depression Current History Admit via ED on 03/27 due to dyspnea and neck pain. Found to have RLL pneumonia Reviewed History: Yes Social History [facility] Current Living Status: Entry Into Home: Level Entry Pt is a resident of [facility]. Prior/Core FIM Prior Level of Function Therapy Code Descriptions/Definitions Functional [place] Measure: 0=Not Assessed/NA 4=Minimal Assistance 1=Total Assistance 5=Supervision or Setup 2=Maximal Assistance 6=Modified [place] 3=Moderate Assistance 7=Complete [place] Therapy Quality Codes: 6 Independent with activity with or without an assistive device 5 Patient requires set up or clean up by helper. Patient completes activity by themselves 4 Supervision or touching assist (CGA). [place] provide cues , steadying assist 3 The helper provides less than half the effort to complete the activity 2 The helper provides more than half the effort to complete the activity 1 Dependent. The helper does all the effort to complete an activity 7 Patient refused to complete or attempt activity 9 The patient did not perform the activity before the current illness or injury 88 Not attempted due to Medical conditions or safety concerns Functional Abilities and Goals: Independent: Patient completed the activities by him/herself, with or without an assistive device, with no assistance from a helper. Needed Some Help: Patient needed partial assistance from another person to complete activities. Dependent: A helper completed the activities for the patient. Unknown: Not Applicable: Bed Mobility: 6 Transfers (B,C,W/C) (FIM): 6 Gait: 1 Stairs: 1 Wheelchair Mobility: 4 Indoor Mobility (Ambulation): Not [place] Stairs: Not [place] Prior Devices Use: Motorized wheelchair Prior Device Use: Pt able to transfer from bed to power chair (I). Non ambulatory for >1 year PT Evaluation-Current Subjective Pt reports dyspnea with all activity. 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 Neuromuscular (Tone, Coordination, Reflexes) intact Sensory Vision: Functional Hearing: Functional Sensation Right Upper Extremit: Intact Sensation Left Upper Extremity: Intact Sensation Right Lower Extremit: Impaired Sensation Left Lower Extremity: Intact Transfers Therapy Code Descriptions/Definitions Functional [place] Measure: 0=Not Assessed/NA 4=Minimal Assistance 1=Total Assistance 5=Supervision or Setup 2=Maximal Assistance 6=Modified [place] 3=Moderate Assistance 7=Complete [place] Transfers (B, C, W/C) (FIM): 5 Scootin Rollin Supine to/from Sit: 6 Sit to/from Stand: 5 bed t/f WC(FIM only if WC use): 4 Gait Mode of Locomotion: Wheelchair Anticipated Mode of Locomotion: Wheelchair Distance (FIM): 0=does not occure Wheelchair Training Wheelchair (FIM): 3 Power chair due to UE weakness. No chair available. Balance Sitting Static: Good Sitting Dynamic: Good Standing Static: Good Standing Dynamic: Good Special Test Comments Very stable during standing activity. Unable to take a step forward. Assessment/Needs Pt was able to safely perform a transfer from the bed to/from the commode with only contact assist Rehab Potential: Good PT Short Term Goals Short Term Goals Time Frame: Apr 07, 2018 Transfers (B,C,W/C) (FIM): 6 Wheelchair (FIM): 6 Wheelchair distance (FIM): 3=150 ft Wheelchair Level of Assist: 6 PT Plan Problem List Problem List: Activity Tolerance, Functional Strength, Transfer, Bed Mobility Treatment/Plan Treatment Plan: Continue Plan of Care Treatment Plan: Bed Mobility, Functional Activity Shaye, Functional Strength, Transfers Treatment Duration: Apr 07, 2018 Frequency: 5 times per week Estimated Hrs Per Day: .25 hour per day Patient and/or Family Agrees t: Yes Time/GCodes Time In: 08 Time Out: 08 Total Billed Treatment Time: 25 Total Billed Treatment 1, evlowc 26 G Codes Necessary: MICHELLE Camarillo PT Mar 31, 2018 09:21
[2018-03-31] MEDS: TAMSULOSIN 0.4 MG (FLOMAX) CAP PO SCH (09:52)
[2018-03-31] MEDS: lisINopril 10 MG (PRINIVIL) TABLET PO SCH (09:52)
[2018-03-31] MEDS: ASPIRIN E.C. 81 MG (ECOTRIN) TAB PO SCH (09:52)
[2018-03-31] MEDS: SERTRALINE 100 MG (ZOLOFT) TAB PO SCH (09:52)
[2018-03-31] MEDS: guaiFENesin (MUCINEX) 600 MG TAB PO SCH (09:52)
[2018-03-31] MEDS: FUROSEMIDE 20 MG (LASIX) TAB PO SCH (09:52)
[2018-03-31] MEDS: ATORVASTATIN 80 MG (LIPITOR) TABLET PO SCH (09:53)
[2018-03-31] MEDS: DICLOFENAC 1% GEL 100 GM (VOLTAREN) TUBE TOP SCH (09:53)
[2018-03-31] MEDS: DILTIAZEM 180 MG (CARDIZEM CD) CAP PO SCH (09:53)
[2018-03-31] MEDS: meTOprolol TARTRATE 50 MG (LOPRESSOR) TAB PO SCH (09:53)
[2018-03-31] MEDS: CEFEPIME 2 GM/NS 50 ML IVPB IV SCH ×2 (10:15)
[2018-03-31] MEDS ORDERED: CYCL10TA9 PO (11:10)
[2018-03-31] MEDS ORDERED: CEFD300C3 PO (11:10)
--- NOTE | 2018-03-31 11:12 | Discharge Inst-Skilled Nursing ---
Discharge Inst-Skilled NF Patient Instructions Patient Problems: Pneumonia Debility chronic Acute torticollis Goal: Independent ADL's Consult/Follow Up/Orders Skilled NF Admit to: [facility] Certification (SNF) I certify that SNF services are required to be given on an inpatient basis because of the above named patient's need for jail care on a continuing basis for the conditions(s) for which he/she was receiving inpatient hospital services prior to his/her transfer to the SNF. Snf Facility Order: Nursing Services, Laser Print Operator-Evaluate & Treat, Physical Therapy-Evaluate & Treat, Speech Language-Evaluate & Treat Discharge Diet: No Restrictions Daily Activity as Tolerated: Yes New & Resume Previous Orders Lubna Carrion Mar 31, 2018 11:11 LUBNA CARRION DO Mar 31, 2018 11:12
--- NOTE | 2018-03-31 11:12 | Discharge Summary-Hospitalist ---
Diagnosis/Chief Complaint Date of Admission Mar 27, 2018 at 10:31 Date of Discharge Discharge Date: Mar 31, 2018 Admission Diagnosis Sepsis due to pneumonia Discharge Diagnosis (1) Sepsis Status: Resolved Assessment & Plan: Leukocytosis resolved, afebrile PNA on XR Cultures pending Continue on Cefepime and Vanc (2) Right lower lobe pneumonia Status: Acute Assessment & Plan: abx as above CURB65 score of 2 (3) Non-insulin dependent type 2 diabetes mellitus Status: Chronic Assessment & Plan: Denies insulin use but on MAR form NH Will place on SSI only (4) COPD (chronic obstructive pulmonary disease) Status: Chronic Assessment & Plan: Continue home inhalers MAT protocol (5) Essential (primary) hypertension Status: Chronic Assessment & Plan: Well controlled Trend Conitnue home meds Discharge Summary Discharge Physical Exam Allergies: Coded Allergies: No Known Drug Allergies (Unverified , 03/27/18) Vitals & I&Os Vital Signs Date Time Temp Pulse Resp B/P (MAP) Pulse Ox O2 Delivery O2 Flow Rate FiO2 03/31/18 10:37 94 Nasal Cannula 3.00 03/31/18 08:00 98.1 103 20 139/69 (92) 03/30/18 11:03 28 General Appearance: No Apparent Distress, WD/WN, Chronically ill, Obese Respiratory: Chest Non Tender, Lungs Clear, Normal Breath Sounds, No Accessory Muscle Use, No Respiratory Distress Cardiovascular: Regular Rate, Rhythm, No Edema, No Gallop, No JVD, No Murmur, Normal Peripheral Pulses Neurologic/Psychiatric: Alert, Oriented x3, No Motor/Sensory Deficits, Normal Mood/Affect Hospital Course Hospital course: Patient was admitted for sepsis from pneumonia and given IV fluids and empiric antibiotics. Patient is DO NOT RESUSCITATE and advanced age and comorbidities with poor recovery potential. He is back to baseline activity so he was sent back to skilled nursing on skilled care. Overall prognosis poor considering advanced age and severe debility. Labs (last 24 hrs) Laboratory Tests 03/30/18 16:11: Glucometer 125H 03/30/18 20:16: Glucometer 229H 03/31/18 05:25: White Blood Count 13.5H, Red Blood Count 3.93L, Hemoglobin 10.1L, Hematocrit 31L , Mean Corpuscular Volume 80, Mean Corpuscular Hemoglobin 26, Mean Corpuscular Hemoglobin Concent 32, Red Cell Distribution Width 16.8H, Platelet Count 312, Mean Platelet Volume 8.9, Neutrophils (%) (Auto) 75, Lymphocytes (%) (Auto) 15, Monocytes (%) (Auto) 7, Eosinophils (%) (Auto) 4, Basophils (%) (Auto) 0, Neutrophils # (Auto) 10.1H, Lymphocytes # (Auto) 2.0, Monocytes # (Auto) 0.9, Eosinophils # (Auto) 0.5H, Basophils # (Auto) 0.1, Sodium Level 137, Potassium Level 4.3, Chloride Level 105, Carbon Dioxide Level 21, Anion Gap 11, Blood Urea Nitrogen 30H, Creatinine 1.49H, Estimat Glomerular Filtration Rate 45, BUN/ Creatinine Ratio 20, Glucose Level 110H, Calcium Level 8.8, Corrected Calcium 9.5, Total Bilirubin 0.3, Aspartate Amino Transf (AST/SGOT) 46H, Alanine Aminotransferase (ALT/SGPT) 58H, Alkaline Phosphatase 157H, Total Protein 6.4, Albumin 3.1L 03/31/18 05:46: Glucometer 127H Microbiology 03/27/18 Blood Culture - Preliminary, Resulted Strep Species, Alpha Hemolytic 03/27/18 Influenza Types A,B Antigen (YVAN) - Final, Complete 03/27/18 Urine Culture - Final, Complete See Comments Patient resulted labs reviewed. Pending Labs Laboratory Tests 03/31/18 05:25: White Blood Count 13.5, Red Blood Count 3.93, Hemoglobin 10.1, Hematocrit 31, Mean Corpuscular Volume 80, Mean Corpuscular Hemoglobin 26, Mean Corpuscular Hemoglobin Concent 32, Red Cell Distribution Width 16.8, Platelet Count 312, Mean Platelet Volume 8.9, Neutrophils (%) (Auto) 75, Lymphocytes (%) (Auto) 15, Monocytes (%) (Auto) 7, Eosinophils (%) (Auto) 4, Basophils (%) (Auto) 0, Neutrophils # (Auto) 10.1, Lymphocytes # (Auto) 2.0, Monocytes # (Auto) 0.9, Eosinophils # (Auto) 0.5, Basophils # (Auto) 0.1, Sodium Level 137, Potassium Level 4.3, Chloride Level 105, Carbon Dioxide Level 21, Anion Gap 11, Blood Urea Nitrogen 30, Creatinine 1.49, Estimat Glomerular Filtration Rate 45, BUN/ Creatinine Ratio 20, Glucose Level 110, Calcium Level 8.8, Corrected Calcium 9.5 , Total Bilirubin 0.3, Aspartate Amino Transf (AST/SGOT) 46, Alanine Aminotransferase (ALT/SGPT) 58, Alkaline Phosphatase 157, Total Protein 6.4, Albumin 3.1 03/31/18 05:46: Glucometer 127 Imaging: Reviewed Imaging Report Discussion & Recommendations Discharge Planning: <30 minutes discharge planning Discharge Home Medications: Active Scripts Active Cefdinir 300 Mg Capsule 300 Mg PO BID Cyclobenzaprine HCl 10 Mg Tablet 5 Mg PO TID PRN Reported Zofran (Ondansetron HCl) 4 Mg Tab 4 Mg PO Q6H PRN Symbicort 80-4.5 Mcg Inhaler (Budesonide/Formoterol Fumarate) 10.2 Gm Hfa.aer.ad 2 Puff IH BID Stress Formula with Zinc Tab (Multivits,Stress Formula/Zinc) 1 Each Tablet 1 Tab PO DAILY Spiriva (Tiotropium [place]) 1 Inh Aerp 1 Cap IH DAILY Sertraline HCl 100 Mg Tablet 100 Mg PO DAILY Sore Throat [place] (Phenol) 177 Ml [place] 2 Sprays PO Q2H PRN Omeprazole 20 Mg Tablet.dr 20 Mg PO DAILY [place]-3 Acid Ethyl Esters 1 Gm Capsule 1 Gm PO QID Novolog (Insulin Aspart) 100 Unit/1 Ml Susp 3 Unit SQ AC HOLD AND NOTIFY PHYSICIAN IF BG<60 Nitroglycerin 0.4 Mg Tab.subl 0.4 Mg SL UD PRN Miralax (Polyethylene Glycol 3350) 17 Gm Powd.pack 17 Gm PO DAILY Metoprolol Tartrate 50 Mg Tablet 50 Mg PO BID Lisinopril 10 Mg Tablet 10 Mg PO DAILY HOLD IF SBP<100 OR DBP<50 OR PULSE<60 Hydrocodone-Acetamin 5-325 mg (Hydrocodone/Acetaminophen) 1 Each Tablet 1-2 Tab PO BID 1 TABLET FOR PAIN RATE 1-5 2 TABS FOR PAIN RATE 6-10 Guaifenesin ER (Guaifenesin) 600 Mg Tab.er.12h 600 Mg PO BID Furosemide 20 Mg Tablet 20 Mg PO DAILY Folic Acid 1 Mg Tablet 1 Mg PO DAILY Flomax (Tamsulosin HCl) 0.4 Mg Cap 0.4 Mg PO DAILY Diltiazem HCl 90 Mg Tablet 180 Mg PO DAILY TAKES 2 (90MG) TABLETS HOLD IF SPB LESS THAN 100 Cyanocobalamin Injection (Cyanocobalamin) 1,000 Mcg/Ml Inj 1,000 Mcg IM MONTHLY Colace (Docusate Sodium) 100 Mg Capsule 100 Mg PO BID Vitamin D3 (Cholecalciferol (Vitamin D3)) 1,000 Unit Capsule 1,000 Unit PO DAILY Atorvastatin Calcium 80 Mg Tablet 80 Mg PO DAILY Aspirin EC (Aspirin) 81 Mg Tablet.dr 81 Mg PO DAILY Asper-Flex (Trolamine Salicylate) 85 Gm Cream..g. TP BID APPLY TO LOWER BACK Lore Allergy (Fexofenadine HCl) 180 Mg Tablet 180 Mg PO DAILY PRN Albuterol Sulfate 0.63 Mg/3 Ml Vial.neb 3 Ml NEB TID Albuterol Sulfate 0.63 Mg/3 Ml Vial.neb 3 Ml NEB Q4H PRN Ventolin Hfa (Albuterol Sulfate) 18 Gm Hfa.aer.ad 2 Puff INH Q6H PRN Akwa Tears Ointment (Lanolin/Min Oil/Petrolat,Wht) 3.5 Gm Oint...g. 2 Drop OU Q4H PRN Instructions to patient/family Please see electronic discharge instructions given to patient. Clinical Quality Measures DVT/VTE Risk/Contraindication: Risk Factor Score Per Nursin RFS Level Per Nursing on Admit: 4+=Very High Problem Qualifiers (1) Sepsis: Sepsis type: sepsis due to unspecified organism Qualified Codes: A41.9 - Sepsis, unspecified organism (2) Right lower lobe pneumonia: Pneumonia type: due to unspecified organism Qualified Codes: J18.1 - Lobar pneumonia, unspecified organism (3) COPD (chronic obstructive pulmonary disease): COPD type: unspecified COPD Qualified Codes: J44.9 - Chronic obstructive pulmonary disease, unspecified ZEYNEP CARBAJAL DO Mar 31, 2018 11:12
== END 2018-03-31 14:00 | DRG 871 ==
LOC: EDUNIT# 08:00 → ER 08:06 → 4TH 10:31
PROVIDERS: ADMIT Family Medicine; ATTEND Family Medicine
DX: A41.9 Sepsis, unspecified organism (principal); J18.1 Lobar pneumonia, unspecified organism; J44.0 Chronic obstructive pulmonary disease with (acute) lower respiratory infection; M54.2 Cervicalgia; G47.30 Sleep apnea, unspecified; I48.91 Unspecified atrial fibrillation; I25.10 Atherosclerotic heart disease of native coronary artery without angina pectoris; Z66 Do not resuscitate; E78.00 Pure hypercholesterolemia, unspecified; I10 Essential (primary) hypertension; E11.51 Type 2 diabetes mellitus with diabetic peripheral angiopathy without gangrene; K21.9 Gastro-esophageal reflux disease without esophagitis; N40.0 Benign prostatic hyperplasia without lower urinary tract symptoms; R54 Age-related physical debility; Z86.12 Personal history of poliomyelitis; Z79.4 Long term (current) use of insulin
CPT/HCPCS: 36415; 71045; 71250; 80048; 80053; 81000; 82962; 83605; 85025; 85610; 85730; 87040; 87088; 87804; 94640; 94760; 96361; 96374; 96375

== ENCOUNTER 2018-04-03 14:48 | Emergency (ER) | payer MEDICARE ==
[~2018-04-03] VITALS: Ht 175.3 cm; Wt 94.0 kg
[~2018-04-03 14:48] MED LIST changes: +ALBU0.63 NEB; +ALBU18HF2 INH; +ASPI-983 PO; +ATOR80TA76 PO; +BUDE10.22 IH; +CEFD300C3 PO; +CHOL10007 PO; +CNC1KV IM; +CYCL10TA9 PO; +DILT90TA PO; +DOCU-143 PO; +FEXO180T84 PO; +FOLI1TAB24 PO; +FURO20TA4 PO; +GUAI600T86 PO; +HYDR-3812 PO; +INSU100V16 SQ; +LISI10TA2 PO; +METO50TA15 PO; +MULT-24 PO; +NITR0.4T39 SL; +OMEG-105 PO; +OMEP20TA7 PO; +ONDN4T PO; +PHEN177S52 PO; +POLY17PO6 PO; +SERT100T8 PO; +TAMS0.4C98 PO; +TIOT18CA2 IH; +TROL85CR14 TP; +[UNRECOGNIZED DRUG - CODE] OU; -diphenhydrAMINE 50 MG/ML INJ (BENADRYL) IV PRN
[2018-04-03 15:33] LABS: BASOPHILS # (AUTO) 0.1 10^3/uL (0.0-0.1); BASOPHILS % (AUTO) 0 % (0-10); EOSINOPHILS # (AUTO) 0.4 10^3/uL (0.0-0.3); EOSINOPHILS % (AUTO) 4 % (0-10); HEMATOCRIT 31 % (40-54); HEMOGLOBIN 9.9 G/DL (13.3-17.7); LYMPHOCYTES # (AUTO) 2.2 X 10^3 (1.0-4.0); LYMPHOCYTES % (AUTO) 19 % (12-44); MEAN CORPUSCULAR HEMOGLOBIN 25 PG (25-34); MEAN CORPUSCULAR HGB CONC 32 G/DL (32-36); MEAN CORPUSCULAR VOLUME 81 FL (80-99); MEAN PLATELET VOLUME 8.5 FL (7.4-10.4); MONOCYTES # (AUTO) 0.5 X 10^3 (0.0-1.0); MONOCYTES % (AUTO) 4 % (0-12); NEUTROPHILS # (AUTO) 8.1 X 10^3 (1.8-7.8); NEUTROPHILS % (AUTO) 72 % (42-75); PLATELET COUNT 276 10^3/uL (130-400); RED BLOOD COUNT 3.89 10^6/uL (4.35-5.85); RED CELL DISTRIBUTION WIDTH 16.6 % (10.0-14.5); WHITE BLOOD COUNT 11.3 10^3/uL (4.3-11.0)
--- NOTE | 2018-04-03 15:40 | Diagnostic Imaging Report ---
INDICATION: Pneumonia, lethargy, patient is not improving. TIME OF EXAM: 3:17 p.m. COMPARISON: Prior chest from 03/27/2018. FINDINGS: The heart is enlarged but stable. Right hemidiaphragm is chronically elevated. There has been some improved aeration to the right lung since studies one week ago. There may be some residual infiltrate or atelectasis in the right base; however, this does appear improved. Left lung is clear. No effusion or pneumothorax is seen. IMPRESSION: Improved aeration to the right lung with partial clearing of right-sided infiltrate when compared to examination of one week earlier. Dictated by: Dictated on workstation # [id number]
[2018-04-03 15:41] LABS: ALBUMIN 3.2 GM/DL (3.2-4.5); BILIRUBIN,TOTAL 0.3 MG/DL (0.1-1.0); CALCIUM 8.9 MG/DL (8.5-10.1); CREATININE SERUM 1.82 MG/DL (0.60-1.30); POTASSIUM 4.6 MMOL/L (3.6-5.0); TOTAL PROTEIN 6.8 GM/DL (6.4-8.2)
--- NOTE | 2018-04-03 16:14 | ED General ---
General Chief Complaint: General Problems/Pain Stated Complaint: WEAKNESS Nursing Triage Note: PT BROUGHT IN BY EMS FROM [facility] WITH COMPLAINT OF LETHARGY. PT WAS DISCHARGED FROM HOSPITAL ON 03/31 WITH PNEUMONIA. DETENTION STAFF STATE PT IS NOT IMPROVING. Nursing Sepsis Screen: No Definite Risk Source of Information: Patient, EMS, Family, Old Records History of Present Illness Date Seen by Provider: Apr 03, 2018 Time Seen by Provider: 15:00 Allergies and Home Medications Allergies Coded Allergies: No Known Drug Allergies (Unverified , 03/27/18) Home Medications Albuterol Sulfate 18 Gm Hfa.aer.ad, 2 PUFF INH Q6H PRN for SHORTNESS OF BREATH, (Reported) Albuterol Sulfate 0.63 Mg/3 Ml Vial.neb, 3 ML NEB Q4H PRN for SHORTNESS OF BREATH, (Reported) Albuterol Sulfate 0.63 Mg/3 Ml Vial.neb, 3 ML NEB TID, (Reported) Aspirin 81 Mg Tablet.dr, 81 MG PO DAILY, (Reported) Atorvastatin Calcium 80 Mg Tablet, 80 MG PO DAILY, (Reported) Budesonide/Formoterol Fumarate 10.2 Gm Hfa.aer.ad, 2 PUFF IH BID, (Reported) Cefdinir 300 Mg Capsule, 300 MG PO BID Prescribed by: ZEYNEP CARBAJAL on 03/31/18 1110 Cholecalciferol (Vitamin D3) 1,000 Unit Capsule, 1,000 UNIT PO DAILY, (Reported) Cyanocobalamin 1,000 Mcg/Ml Inj, 1,000 MCG IM MONTHLY, (Reported) Cyclobenzaprine HCl 10 Mg Tablet, 5 MG PO TID PRN for MUSCLE SPASMS Prescribed by: ZEYNEP CARBAJAL on 03/31/18 1110 Diltiazem HCl 90 Mg Tablet, 180 MG PO DAILY, (Reported) TAKES 2 (90MG) TABLETS HOLD IF SPB LESS THAN 100 Docusate Sodium 100 Mg Capsule, 100 MG PO BID, (Reported) Fexofenadine HCl 180 Mg Tablet, 180 MG PO DAILY PRN for ALLERGIES, (Reported) Folic Acid 1 Mg Tablet, 1 MG PO DAILY, (Reported) Furosemide 20 Mg Tablet, 20 MG PO DAILY, (Reported) Guaifenesin 600 Mg Tab.er.12h, 600 MG PO BID, (Reported) Hydrocodone/Acetaminophen 1 Each Tablet, 1-2 TAB PO BID, (Reported) 1 TABLET FOR PAIN RATE 1-5 2 TABS FOR PAIN RATE 6-10 Insulin Aspart 100 Unit/1 Ml Susp, 3 UNIT SQ AC, (Reported) HOLD AND NOTIFY PHYSICIAN IF BG<60 Lanolin/Min Oil/Petrolat,Wht 3.5 Gm Oint...g., 2 DROP OU Q4H PRN for EYE PAIN, ( Reported) Lisinopril 10 Mg Tablet, 10 MG PO DAILY, (Reported) HOLD IF SBP<100 OR DBP<50 OR PULSE<60 Metoprolol Tartrate 50 Mg Tablet, 50 MG PO BID, (Reported) Multivits,Stress Formula/Zinc 1 Each Tablet, 1 TAB PO DAILY, (Reported) Nitroglycerin 0.4 Mg Tab.subl, 0.4 MG SL UD PRN for CHEST PAIN, (Reported) [place]-3 Acid Ethyl Esters 1 Gm Capsule, 1 GM PO QID, (Reported) Omeprazole 20 Mg Tablet.dr, 20 MG PO DAILY, (Reported) Ondansetron HCl 4 Mg Tab, 4 MG PO Q6H PRN for NAUSEA/VOMITING-1ST LINE, ( Reported) Phenol 177 Ml [place], 2 SPRAYS PO Q2H PRN for SORE THROAT, (Reported) Polyethylene Glycol 3350 17 Gm Powd.pack, 17 GM PO DAILY, (Reported) Sertraline HCl 100 Mg Tablet, 100 MG PO DAILY, (Reported) Tamsulosin HCl 0.4 Mg Cap, 0.4 MG PO DAILY, (Reported) Tiotropium [place] 1 Inh Aerp, 1 CAP IH DAILY, (Reported) Trolamine Salicylate 85 Gm Cream..g., TP BID, (Reported) APPLY TO LOWER BACK Past Wbneogc-Ajvgfz-Izwkuk Hx Patient Social History Alcohol Use: Denies Use Number of Drinks Today: Alcohol Beverage of Choice: Wine Recreational Drug Use: No Smoking Status: Never a Smoker Recent Foreign Travel: No Contact w/Someone Who Travel: No Recent Infectious Disease Expo: No Recent Hopitalizations: No Immunizations Up To Date Tetanus Booster (TDap): Unknown Date of Pneumonia Vaccine: Jun 08, 2017 Date of Influenza Vaccine: Jan 15, 2018 Past Medical History Surgeries: Yes Gallbladder Respiratory: Yes Sleep Apnea, COPD Cardiac: Yes Atrial Fibrillation, Coronary Artery Disease, High Cholesterol, Hypertension, Peripheral Vascular Neurological: Yes (polio) Sexually Transmitted Disease: No Genitourinary: Yes Benign Prostatic Hyperpl, Renal Failure Gastrointestinal: Yes Gastroesophageal Reflux Musculoskeletal: Yes (HX OF POLIO) Arthritis Endocrine: Yes Diabetes, Insulin dep HEENT: No Cancer: No Psychosocial: Yes Depression Integumentary: No Family Medical History No Pertinent Family Hx Physical Exam Vital Signs Vital Signs - First Documented 04/03/18 14:50 Temp 97.4 Pulse 67 Resp 20 B/P (MAP) 110/51 (70) Pulse Ox 96 O2 Delivery Nasal Cannula O2 Flow Rate 2.00 Capillary Refill : Less Than 3 Seconds Height, Weight, BMI Height: 5'9.00" Weight: 207lbs. 3.0oz. 93.060303nk; 30.6 BMI Method:Stated Progress/Results/Core Measures Suspected Sepsis Recent Fever Within 48 Hours: Yes Infection Criteria Present: None New/Unexplained Altered Menta: No Sepsis Screen: No Definite Risk SIRS Temperature:97.4 Pulse: 67 Respiratory Rate: 20 Laboratory Tests 04/03/18 15:00: White Blood Count 11.3H Blood Pressure 110 /51 Mean: 70 Laboratory Tests 04/03/18 15:00: Creatinine 1.82H, Platelet Count 276, Total Bilirubin 0.3 Results/Orders Lab Results Laboratory Tests Test 04/03/18 15:00 Range/Units White Blood Count 11.3 H 4.3-11.0 10^3/uL Red Blood Count 3.89 L 4.35-5.85 10^6/uL Hemoglobin 9.9 L 13.3-17.7 G/DL Hematocrit 31 L 40-54 % Mean Corpuscular Volume 81 80-99 FL Mean Corpuscular Hemoglobin 25 25-34 PG Mean Corpuscular Hemoglobin Concent 32 32-36 G/DL Red Cell Distribution Width 16.6 H 10.0-14.5 % Platelet Count 276 130-400 10^3/uL Mean Platelet Volume 8.5 7.4-10.4 FL Neutrophils (%) (Auto) 72 42-75 % Lymphocytes (%) (Auto) 19 12-44 % Monocytes (%) (Auto) 4 0-12 % Eosinophils (%) (Auto) 4 0-10 % Basophils (%) (Auto) 0 0-10 % Neutrophils # (Auto) 8.1 H 1.8-7.8 X 10^3 Lymphocytes # (Auto) 2.2 1.0-4.0 X 10^3 Monocytes # (Auto) 0.5 0.0-1.0 X 10^3 Eosinophils # (Auto) 0.4 H 0.0-0.3 10^3/uL Basophils # (Auto) 0.1 0.0-0.1 10^3/uL Sodium Level 138 135-145 MMOL/L Potassium Level 4.6 3.6-5.0 MMOL/L Chloride Level 105 98-107 MMOL/L Carbon Dioxide Level 23 21-32 MMOL/L Anion Gap 10 5-14 MMOL/L Blood Urea Nitrogen 37 H 7-18 MG/DL Creatinine 1.82 H 0.60-1.30 MG/DL Estimat Glomerular Filtration Rate 35 BUN/Creatinine Ratio 20 Glucose Level 122 H 70-105 MG/DL Calcium Level 8.9 8.5-10.1 MG/DL Corrected Calcium 9.5 8.5-10.1 MG/DL Total Bilirubin 0.3 0.1-1.0 MG/DL Aspartate Amino Transf (AST/SGOT) 44 H 5-34 U/L Alanine Aminotransferase (ALT/SGPT) 59 H 0-55 U/L Alkaline Phosphatase 177 H 40-136 U/L C-Reactive Protein High Sensitivity 3.22 H 0.00-0.50 MG/DL Total Protein 6.8 6.4-8.2 GM/DL Albumin 3.2 3.2-4.5 GM/DL My Orders Orders - RICK PINEDA MD Cbc With Automated Diff (04/03/18 15:09) Comprehensive Metabolic Panel (04/03/18 15:09) Hs C Reactive Protein (04/03/18 15:09) Chest 1 View, Ap/Pa Only (04/03/18 15:09) Saline Lock/Iv-Start (04/03/18 15:09) Vital Signs/I&O 04/03/18 04/03/18 14:50 17:01 Temp 97.4 97.4 Pulse 67 68 Resp 20 20 B/P (MAP) 110/51 (70) 122/55 (77) Pulse Ox 96 96 O2 Delivery Nasal Cannula Room Air O2 Flow Rate 2.00 2.00 Capillary Refill : Less Than 3 Seconds Blood Pressure Mean: 70 Progress Note : Progress Note Workup was unremarkable except for a bump in creatinine. A liter of IV fluids were infused as started by EMS. Chest x-ray was improved from prior. Patient was not hypoxic on room air. I suspect he is experiencing persistent symptoms from pneumonia. Today is his first day back doing physical therapy after being discharged from the hospital. His tolerance for therapy is probably not back to baseline yet because of the acute illness. Patient was dismissed back to the alf with return precautions after his fluid bolus was complete. He continues on antibiotics as prescribed on discharge from the hospital. Diagnostic Imaging Diagonstic Imaging: Xray Plain Films/CT/US/NM/MRI: chest Comments Chest x-ray viewed by me and report reviewed. See report below. Compared with prior colon NAME: TRISTAN HUTTON V MED REC#: [id number] PT STATUS: REG ER : 1930 PHYSICIAN: RICK PINEDA MD ADMIT DATE: 04/03/18/ER Signed Date of Exam: 04/03/18 CHEST 1 VIEW, AP/PA ONLY INDICATION: Pneumonia, lethargy, patient is not improving. TIME OF EXAM: 3:17 p.m. COMPARISON: Prior chest from 03/27/2018. FINDINGS: The heart is enlarged but stable. Right hemidiaphragm is chronically elevated. There has been some improved aeration to the right lung since studies one week ago. There may be some residual infiltrate or atelectasis in the right base; however, this does appear improved. Left lung is clear. No effusion or pneumothorax is seen. IMPRESSION: Improved aeration to the right lung with partial clearing of right-sided infiltrate when compared to examination of one week earlier. Dictated by: Dictated on workstation # [id number] Dict: 04/03/18 1531 Trans: 04/03/18 1539 Interpreted by: MATT SMITH MD Electronically signed by: MATT SMITH MD 04/03/18 1539 Departure Impression Primary Impression: Pneumonia Qualified Codes: J18.1 - Lobar pneumonia, unspecified organism Additional Impressions: Pleuritic chest pain Dyspnea Qualified Codes: R06.09 - Other forms of dyspnea Acute renal insufficiency Disposition: 01 HOME, SELF-CARE Condition: Improved Departure-Patient Inst. Decision time for Depature: 16:30 Referrals: ISAAC MAR MD (PCP/Family) Primary Care Physician Patient Instructions: Community-Acquired Pneumonia in Adults Add. Discharge Instructions: Drink plenty of clear liquids. Gradually advance activity as tolerated. You may take Tylenol (acetaminophen) up to 1000 mg every 6 hours as needed for pain. Complete your antibiotic as prescribed. Follow-up with your primary care provider within the next week. All discharge instructions reviewed with patient and/or family. Voiced understanding. Copy Copies To 1: SELF,RICK GALVEZ MD, MD Apr 03, 2018 16:14
[2018-04-03 17:01] VITALS: BP 122/55
== END 2018-04-03 17:01 | disposition home or self-care (01) ==
LOC: EDUNIT# 14:48 → ER 14:49
DX: J18.9 Pneumonia, unspecified organism (principal); R07.81 Pleurodynia; R06.00 Dyspnea, unspecified; N17.9 Acute kidney failure, unspecified; G47.30 Sleep apnea, unspecified; J44.9 Chronic obstructive pulmonary disease, unspecified; I48.91 Unspecified atrial fibrillation; I25.10 Atherosclerotic heart disease of native coronary artery without angina pectoris; E78.00 Pure hypercholesterolemia, unspecified; I10 Essential (primary) hypertension; E11.59 Type 2 diabetes mellitus with other circulatory complications; I73.9 Peripheral vascular disease, unspecified; F32.9 Major depressive disorder, single episode, unspecified; K21.9 Gastro-esophageal reflux disease without esophagitis; Z87.448 Personal history of other diseases of urinary system; Z86.12 Personal history of poliomyelitis; Z79.51 Long term (current) use of inhaled steroids; Z79.82 Long term (current) use of aspirin; Z79.4 Long term (current) use of insulin
CPT/HCPCS: 36415; 71045; 80053; 85025; 86141

== ENCOUNTER 2018-04-10 14:33 | Emergency (ER) | payer MEDICARE | END 2018-04-10 17:20 | disposition home or self-care (01) | LOC: ER 14:33 ==

== ENCOUNTER → 2018-07-24 | Outpatient (CLI) | payer MEDICARE ==
[~2018-07-24] MED LIST changes: +APIX5TAB PO
== END ==
LOC: WOUNDCARE 09:39
PROVIDERS: ATTEND Nurse Practitioner
DX: E11.621 Type 2 diabetes mellitus with foot ulcer (principal); L97.512 Non-pressure chronic ulcer of other part of right foot with fat layer exposed; I70.235 Atherosclerosis of native arteries of right leg with ulceration of other part of foot; B91 Sequelae of poliomyelitis
CPT/HCPCS: 99213

== ENCOUNTER → 2018-07-31 | Outpatient (CLI) | payer MEDICARE | LOC: WOUNDCARE 10:02 | PROVIDERS: ATTEND Nurse Practitioner | DX: E11.621 Type 2 diabetes mellitus with foot ulcer (principal); L97.512 Non-pressure chronic ulcer of other part of right foot with fat layer exposed; I70.235 Atherosclerosis of native arteries of right leg with ulceration of other part of foot; B91 Sequelae of poliomyelitis | CPT/HCPCS: 99213 ==

== ENCOUNTER → 2018-08-07 | Outpatient (CLI) | payer MEDICARE | LOC: WOUNDCARE 10:07 | PROVIDERS: ATTEND Nurse Practitioner | DX: E11.621 Type 2 diabetes mellitus with foot ulcer (principal); L97.512 Non-pressure chronic ulcer of other part of right foot with fat layer exposed; I70.235 Atherosclerosis of native arteries of right leg with ulceration of other part of foot; B91 Sequelae of poliomyelitis | CPT/HCPCS: 99212 ==

== ENCOUNTER → 2019-02-19 | Outpatient (CLI) | payer MEDICARE ==
--- NOTE | 2019-02-19 12:50 | Diagnostic Imaging Report ---
INDICATION: Right great toe osteomyelitis. TIME OF EXAM: 11:04 AM FINDINGS: Three views of the right foot were obtained. No definite bony destructive changes are seen. No soft tissue gas is identified. There appears to be soft tissue swelling of the great toe. No fractures are identified. Remaining phalanges are intact. Metatarsals are intact. Midfoot and hindfoot are unremarkable. IMPRESSION: There is soft tissue swelling of the great toe. No bony destructive changes are identified to suggest osteomyelitis. Dictated by: Dictated on workstation # [id number]
== END ==
LOC: RAD 10:40
PROVIDERS: ATTEND Nurse Practitioner
DX: E11.621 Type 2 diabetes mellitus with foot ulcer (principal); L97.512 Non-pressure chronic ulcer of other part of right foot with fat layer exposed; I70.235 Atherosclerosis of native arteries of right leg with ulceration of other part of foot; M79.89 Other specified soft tissue disorders
CPT/HCPCS: 73630

== ENCOUNTER → 2019-02-19 | Outpatient (CLI) | payer MEDICARE | LOC: WOUNDCARE 09:06 | PROVIDERS: ATTEND Nurse Practitioner | DX: E11.621 Type 2 diabetes mellitus with foot ulcer (principal); L97.512 Non-pressure chronic ulcer of other part of right foot with fat layer exposed; I70.235 Atherosclerosis of native arteries of right leg with ulceration of other part of foot | CPT/HCPCS: 99213 ==

== ENCOUNTER → 2019-02-26 | Outpatient (CLI) | payer MEDICARE | LOC: WOUNDCARE 10:36 | PROVIDERS: ATTEND Nurse Practitioner | DX: E11.621 Type 2 diabetes mellitus with foot ulcer (principal); L97.512 Non-pressure chronic ulcer of other part of right foot with fat layer exposed; I70.235 Atherosclerosis of native arteries of right leg with ulceration of other part of foot; E11.52 Type 2 diabetes mellitus with diabetic peripheral angiopathy with gangrene | CPT/HCPCS: 99212 ==

== ENCOUNTER → 2019-03-03 | Outpatient (CLI) | payer MEDICARE | LOC: WOUNDCARE 10:15 | PROVIDERS: ATTEND Nurse Practitioner | DX: E11.621 Type 2 diabetes mellitus with foot ulcer (principal); E11.52 Type 2 diabetes mellitus with diabetic peripheral angiopathy with gangrene; I70.261 Atherosclerosis of native arteries of extremities with gangrene, right leg; L97.512 Non-pressure chronic ulcer of other part of right foot with fat layer exposed | CPT/HCPCS: 99212 ==

== ENCOUNTER → 2019-03-12 | Outpatient (CLI) | payer MEDICARE ==
[~2019-03-12] MED LIST changes: -TAMS0.4C98 PO; +TMSL.4C PO
== END ==
LOC: WOUNDCARE 10:26
PROVIDERS: ATTEND Nurse Practitioner
DX: E11.621 Type 2 diabetes mellitus with foot ulcer (principal); L97.512 Non-pressure chronic ulcer of other part of right foot with fat layer exposed; I70.235 Atherosclerosis of native arteries of right leg with ulceration of other part of foot; E11.52 Type 2 diabetes mellitus with diabetic peripheral angiopathy with gangrene
CPT/HCPCS: 87070; 87075; 87077; 87186; 87205; 99213

== ENCOUNTER → 2019-03-19 | Outpatient (CLI) | payer MEDICARE ==
[~2019-03-19] MED LIST changes: +TAMS0.4C98 PO; -TMSL.4C PO
== END ==
LOC: WOUNDCARE 10:28
PROVIDERS: ATTEND Nurse Practitioner
DX: E11.621 Type 2 diabetes mellitus with foot ulcer (principal); E11.52 Type 2 diabetes mellitus with diabetic peripheral angiopathy with gangrene; I70.261 Atherosclerosis of native arteries of extremities with gangrene, right leg; L97.512 Non-pressure chronic ulcer of other part of right foot with fat layer exposed
CPT/HCPCS: 99213

== ENCOUNTER → 2019-03-19 | Outpatient (CLI) | payer MEDICARE ==
[2019-03-19 11:54] LABS: CALCIUM 9.3 MG/DL (8.5-10.1); CREATININE SERUM 1.68 MG/DL (0.60-1.30); POTASSIUM 4.8 MMOL/L (3.6-5.0)
== END ==
LOC: LAB 11:21
PROVIDERS: ATTEND Nurse Practitioner
DX: E11.621 Type 2 diabetes mellitus with foot ulcer (principal); L97.512 Non-pressure chronic ulcer of other part of right foot with fat layer exposed; I70.235 Atherosclerosis of native arteries of right leg with ulceration of other part of foot
CPT/HCPCS: 36415; 80048

== ENCOUNTER 2019-03-25 14:56 | Emergency (ER) | payer MEDICARE ==
[~2019-03-25] VITALS: Ht 175.3 cm; Wt 91.0 kg
[2019-03-25] MEDS ORDERED: NS IV 1000 ML 1,000 ML IV SCH (15:32)
[2019-03-25 15:49] LABS: BASOPHILS % (AUTO) 0 % (0-10); EOSINOPHILS # (AUTO) 0.4 10^3/uL (0.0-0.3); EOSINOPHILS % (AUTO) 4 % (0-10); HEMATOCRIT 40 % (40-54); HEMOGLOBIN 12.6 G/DL (13.3-17.7); LYMPHOCYTES # (AUTO) 1.7 X 10^3 (1.0-4.0); LYMPHOCYTES % (AUTO) 18 % (12-44); MEAN CORPUSCULAR HEMOGLOBIN 24 PG (25-34); MEAN CORPUSCULAR HGB CONC 31 G/DL (32-36); MEAN CORPUSCULAR VOLUME 76 FL (80-99); MEAN PLATELET VOLUME 8.4 FL (7.4-10.4); MONOCYTES # (AUTO) 0.7 X 10^3 (0.0-1.0); MONOCYTES % (AUTO) 7 % (0-12); NEUTROPHILS # (AUTO) 6.6 X 10^3 (1.8-7.8); NEUTROPHILS % (AUTO) 70 % (42-75); PLATELET COUNT 258 10^3/uL (130-400); RED CELL DISTRIBUTION WIDTH 18.2 % (10.0-14.5); WHITE BLOOD COUNT 9.5 10^3/uL (4.3-11.0)
[2019-03-25 15:58] LABS: BILIRUBIN,URINE NEGATIVE (NEGATIVE); CLARITY,URINE CLEAR; COLOR,URINE YELLOW; GLUCOSE, URINE (UA) NEGATIVE (NEGATIVE); KETONES,URINE NEGATIVE (NEGATIVE); LEUKOCYTE ESTERASE ,URINE TRACE (NEGATIVE); NITRITE,URINE NEGATIVE (NEGATIVE); PROTEIN,URINE NEGATIVE (NEGATIVE)
[2019-03-25] MEDS ORDERED: SOD POLYSTERENE 15 GM/60 ML (KAYEXALATE) UNIT DOSE PO ONE (16:00)
[2019-03-25 16:08] LABS: BACTERIA,URINE NEGATIVE /HPF; RBC,URINE 0-2 /HPF; WBC,URINE 0-2 /HPF
[2019-03-25 16:09] LABS: GRANULAR CASTS,URINE 0-2 /LPF; SQUAMOUS EPITHELIAL CELL,UR RARE /HPF
[2019-03-25 16:10] LABS: ALBUMIN 3.9 GM/DL (3.2-4.5); BILIRUBIN,TOTAL 0.2 MG/DL (0.1-1.0); CALCIUM 9.4 MG/DL (8.5-10.1); CREATININE SERUM 2.45 MG/DL (0.60-1.30); POTASSIUM 6.4 MMOL/L (3.6-5.0); TOTAL PROTEIN 7.3 GM/DL (6.4-8.2)
--- NOTE | 2019-03-25 16:15 | ED General ---
General Chief Complaint: General Problems/Pain Stated Complaint: REACTION TO ANTIBIOTIC Nursing Triage Note: Pt to triage via ED w/c by family member. Pt reports he was advised by Dr. Eckert to seek medical tx in ED after blood results were drawn and read on this day. Pt reports he began taking Bactrim on 03/20/19 (d/t wound Rt great toe) and had baseline kidney function labs drawn. On this day pt reports increased SOA and "the shakes." A&OX4. Nursing Sepsis Screen: No Definite Risk History of Present Illness Date Seen by Provider: Mar 25, 2019 Time Seen by Provider: 15:10 Initial Comments 88-year-old male presents for abnormal labs. He has been treated in wound care and had labs earlier today, he was referred here for hyperkalemia. He was recently on doxycycline and then switched to Bactrim for awaiting to his right great toe. He has a long-standing history of atrial fibrillation and is on Eliquis for this. He is denying any muscle weakness, chest pain, paresthesias, nausea or vomiting, dyspnea, palpitations, syncope or fasciculations. Associated Systoms: Denies Symptoms Allergies and Home Medications Allergies Coded Allergies: No Known Drug Allergies (Unverified , 03/27/18) Home Medications Albuterol Sulfate 18 Gm Hfa.aer.ad, 2 PUFF INH Q6H PRN for SHORTNESS OF BREATH, (Reported) Albuterol Sulfate 0.63 Mg/3 Ml Vial.neb, 3 ML NEB Q4H PRN for SHORTNESS OF BREATH, (Reported) Albuterol Sulfate 0.63 Mg/3 Ml Vial.neb, 3 ML NEB TID, (Reported) Apixaban 5 Mg Tablet, 5 MG PO BID Prescribed by: NOEMI HEBERT on 04/10/18 1619 Aspirin 81 Mg Tablet.dr, 81 MG PO DAILY, (Reported) Atorvastatin Calcium 80 Mg Tablet, 80 MG PO DAILY, (Reported) Budesonide/Formoterol Fumarate 10.2 Gm Hfa.aer.ad, 2 PUFF IH BID, (Reported) Cefdinir 300 Mg Capsule, 300 MG PO BID Prescribed by: ZEYNEP CARBAJAL on 03/31/18 1110 Cholecalciferol (Vitamin D3) 1,000 Unit Capsule, 1,000 UNIT PO DAILY, (Reported) Cyanocobalamin 1,000 Mcg/Ml Inj, 1,000 MCG IM MONTHLY, (Reported) Cyclobenzaprine HCl 10 Mg Tablet, 5 MG PO TID PRN for MUSCLE SPASMS Prescribed by: ZEYNEP CARBAJAL on 03/31/18 1110 Diltiazem HCl 90 Mg Tablet, 180 MG PO DAILY, (Reported) TAKES 2 (90MG) TABLETS HOLD IF SPB LESS THAN 100 Docusate Sodium 100 Mg Capsule, 100 MG PO BID, (Reported) Fexofenadine HCl 180 Mg Tablet, 180 MG PO DAILY PRN for ALLERGIES, (Reported) Folic Acid 1 Mg Tablet, 1 MG PO DAILY, (Reported) Furosemide 20 Mg Tablet, 20 MG PO DAILY, (Reported) Guaifenesin 600 Mg Tab.er.12h, 600 MG PO BID, (Reported) Hydrocodone/Acetaminophen 1 Each Tablet, 1-2 TAB PO BID, (Reported) 1 TABLET FOR PAIN RATE 1-5 2 TABS FOR PAIN RATE 6-10 Insulin Aspart 100 Unit/1 Ml Susp, 3 UNIT SQ AC, (Reported) HOLD AND NOTIFY PHYSICIAN IF BG<60 Lanolin/Min Oil/Petrolat,Wht 3.5 Gm Oint...g., 2 DROP OU Q4H PRN for EYE PAIN, (Reported) Lisinopril 10 Mg Tablet, 10 MG PO DAILY, (Reported) HOLD IF SBP<100 OR DBP<50 OR PULSE<60 Metoprolol Tartrate 50 Mg Tablet, 50 MG PO BID, (Reported) Multivits,Stress Formula/Zinc 1 Each Tablet, 1 TAB PO DAILY, (Reported) Nitroglycerin 0.4 Mg Tab.subl, 0.4 MG SL UD PRN for CHEST PAIN, (Reported) [place]-3 Acid Ethyl Esters 1 Gm Capsule, 1 GM PO QID, (Reported) Omeprazole 20 Mg Tablet.dr, 20 MG PO DAILY, (Reported) Ondansetron HCl 4 Mg Tab, 4 MG PO Q6H PRN for NAUSEA/VOMITING-1ST LINE, (Reported) Phenol 177 Ml [place], 2 SPRAYS PO Q2H PRN for SORE THROAT, (Reported) Polyethylene Glycol 3350 17 Gm Powd.pack, 17 GM PO DAILY, (Reported) Sertraline HCl 100 Mg Tablet, 100 MG PO DAILY, (Reported) Tamsulosin HCl 0.4 Mg Cap, 0.4 MG PO DAILY, (Reported) Tiotropium [place] 1 Inh Aerp, 1 CAP IH DAILY, (Reported) Trolamine Salicylate 85 Gm Cream..g., TP BID, (Reported) APPLY TO LOWER BACK Patient Home Medication List Home Medication List Reviewed: Yes Review of Systems Review of Systems Constitutional: no symptoms reported, see HPI All Other Systems Reviewed Negative Unless Noted: Yes Past Fgluwrg-Oazzuq-Jnjlbg Hx Past Med/Social Hx: Reviewed Nursing Past Med/Soc Hx Patient Social History Alcohol Use: Denies Use Number of Drinks Today: Alcohol Beverage of Choice: Wine Recreational Drug Use: No Smoking Status: Never a Smoker 2nd Hand Smoke Exposure: No Recent Foreign Travel: No Contact w/Someone Who Travel: No Recent Infectious Disease Expo: No Recent Hopitalizations: No Immunizations Up To Date Tetanus Booster (TDap): Unknown Date of Pneumonia Vaccine: Jun 08, 2017 Date of Influenza Vaccine: Jan 15, 2018 Past Medical History Surgeries: Yes Gallbladder Respiratory: Yes Pneumonia, Sleep Apnea, COPD Cardiac: Yes Atrial Fibrillation, Coronary Artery Disease, High Cholesterol, Hypertension, Peripheral Vascular Neurological: Yes (polio) Sexually Transmitted Disease: No Genitourinary: Yes Benign Prostatic Hyperpl, Renal Failure Gastrointestinal: Yes Gastroesophageal Reflux Musculoskeletal: Yes (HX OF POLIO) Arthritis Endocrine: Yes Diabetes, Insulin dep HEENT: No Cancer: No Psychosocial: Yes Depression Integumentary: No Family Medical History No Pertinent Family Hx Physical Exam Vital Signs Vital Signs - First Documented 03/25/19 15:05 Temp 37.1 Pulse 95 Resp 20 B/P (MAP) 124/72 (89) Pulse Ox 94 O2 Delivery Room Air Capillary Refill : Less Than 3 Seconds Height, Weight, BMI Height: 5'9.00" Weight: 207lbs. 3.0oz. 93.536228fz; 29.00 BMI Method:Stated General Appearance: No Apparent Distress, WD/WN HEENT: PERRL/EOMI, TMs Normal, Normal ENT Inspection Neck: Full Range of Motion, Normal Inspection, Non Tender, Supple Respiratory: Chest Non Tender, Lungs Clear, Normal Breath Sounds Cardiovascular: No Edema, No Murmur, Irregularly Irregular Extremity: Normal Capillary Refill, Normal Inspection, Normal Range of Motion, Other (wound to right great toe) Neurologic/Psychiatric: Alert, Oriented x3, No Motor/Sensory Deficits, Normal Mood/Affect Skin: Normal Color, Warm/Dry Progress/Results/Core Measures Suspected Sepsis Recent Fever Within 48 Hours: No Infection Criteria Present: Documented Infection New/Unexplained Altered Menta: No Sepsis Screen: No Definite Risk SIRS Temperature: Pulse: 95 Respiratory Rate: 20 Laboratory Tests 03/25/19 15:40: White Blood Count 9.5 Blood Pressure 124 /72 Mean: 89 Laboratory Tests 03/25/19 15:40: Creatinine 2.45H, Platelet Count 258, Total Bilirubin 0.2 Results/Orders Lab Results Laboratory Tests Test 03/25/19 15:40 03/25/19 15:50 Range/Units White Blood Count 9.5 4.3-11.0 10^3/uL Red Blood Count 5.33 4.35-5.85 10^6/uL Hemoglobin 12.6 L 13.3-17.7 G/DL Hematocrit 40 40-54 % Mean Corpuscular Volume 76 L 80-99 FL Mean Corpuscular Hemoglobin 24 L 25-34 PG Mean Corpuscular Hemoglobin Concent 31 L 32-36 G/DL Red Cell Distribution Width 18.2 H 10.0-14.5 % Platelet Count 258 130-400 10^3/uL Mean Platelet Volume 8.4 7.4-10.4 FL Neutrophils (%) (Auto) 70 42-75 % Lymphocytes (%) (Auto) 18 12-44 % Monocytes (%) (Auto) 7 0-12 % Eosinophils (%) (Auto) 4 0-10 % Basophils (%) (Auto) 0 0-10 % Neutrophils # (Auto) 6.6 1.8-7.8 X 10^3 Lymphocytes # (Auto) 1.7 1.0-4.0 X 10^3 Monocytes # (Auto) 0.7 0.0-1.0 X 10^3 Eosinophils # (Auto) 0.4 H 0.0-0.3 10^3/uL Basophils # (Auto) 0.0 0.0-0.1 10^3/uL Sodium Level 137 135-145 MMOL/L Potassium Level 6.4 H 3.6-5.0 MMOL/L Chloride Level 107 98-107 MMOL/L Carbon Dioxide Level 21 21-32 MMOL/L Anion Gap 9 5-14 MMOL/L Blood Urea Nitrogen 43 H 7-18 MG/DL Creatinine 2.45 H 0.60-1.30 MG/DL Estimat Glomerular Filtration Rate 25 BUN/Creatinine Ratio 18 Glucose Level 148 H 70-105 MG/DL Calcium Level 9.4 8.5-10.1 MG/DL Corrected Calcium 9.5 8.5-10.1 MG/DL Total Bilirubin 0.2 0.1-1.0 MG/DL Aspartate Amino Transf (AST/SGOT) 31 5-34 U/L Alanine Aminotransferase (ALT/SGPT) 29 0-55 U/L Alkaline Phosphatase 85 40-136 U/L Total Protein 7.3 6.4-8.2 GM/DL Albumin 3.9 3.2-4.5 GM/DL Urine Color YELLOW Urine Clarity CLEAR Urine pH 6.0 5-9 Urine Specific [place] 1.020 1.016-1.022 Urine Protein NEGATIVE NEGATIVE Urine Glucose (UA) NEGATIVE NEGATIVE Urine Ketones NEGATIVE NEGATIVE Urine Nitrite NEGATIVE NEGATIVE Urine Bilirubin NEGATIVE NEGATIVE Urine Urobilinogen 0.2 < = 1.0 MG/DL Urine Leukocyte Esterase TRACE NEGATIVE Urine RBC (Auto) NEGATIVE NEGATIVE Urine RBC 0-2 /HPF Urine WBC 0-2 /HPF Urine Squamous Epithelial Cells RARE /HPF Urine Crystals NONE /LPF Urine Bacteria NEGATIVE /HPF Urine Casts PRESENT /LPF Urine Granular Casts 0-2 H /LPF Urine Mucus NEGATIVE /LPF Urine Culture Indicated NO My Orders Orders - NILS SKINNER Cbc With Automated Diff (03/25/19 15:32) Comprehensive Metabolic Panel (03/25/19 15:32) Ua Culture If Indicated (03/25/19 15:32) Ekg Tracing (03/25/19 15:32) Ed Iv/Invasive Line Start (03/25/19 15:32) Ns Iv 1000 Ml (Sodium Chloride 0.9%) (03/25/19 15:32) Sodium Polystyrene Sulfonate (Kayexalate (03/25/19 16:00) Furosemide Injection (Lasix Injection) (03/25/19 16:30) Medications Given in ED Current Medications Medications Dose Ordered Sig/Claude Route Start Time Stop Time Status Last Admin Dose Admin Furosemide 10 mg ONCE ONCE IVP 03/25/19 16:30 03/25/19 16:31 DC 03/25/19 16:39 10 MG Vital Signs/I&O 03/25/19 15:05 Temp 37.1 Pulse 95 Resp 20 B/P (MAP) 124/72 (89) Pulse Ox 94 O2 Delivery Room Air Capillary Refill : Less Than 3 Seconds Blood Pressure Mean: 89 ECG Initial ECG Impression Date: Mar 25, 2019 Initial ECG Impression Time: 15:45 Initial ECG Rate: 90 Initial ECG Rhythm: A Fib/Flutter Initial ECG Intervals: Normal Initial ECG Intervals QRSD 130, QT 376, QTc 460. [place] QRS 133. Departure Impression Primary Impression: Acute hyperkalemia Disposition: 01 HOME, SELF-CARE Condition: Improved Departure-Patient Inst. Referrals: ISAAC MAR MD (PCP/Family) Primary Care Physician Patient Instructions: Hyperkalemia (DC) Add. Discharge Instructions: Stop your lisinopril for 3 days. Increase water intake, 16 ounces every 2 hours while awake. Continue taking all your other normal medications. Keep your scheduled appointment for follow-up tomorrow with wound care. Return to the emergency department for any new, a few healthcare findings. All discharge instructions reviewed with patient and/or family. Voiced understanding. NILS SKINNER Mar 25, 2019 16:14
[2019-03-25] MEDS ORDERED: FUROSEMIDE 40 MG/4 ML INJ (LASIX) IVP ONE (16:30)
[2019-03-25 17:02] VITALS: BP 149/81
== END 2019-03-25 17:02 | disposition home or self-care (01) ==
LOC: EDUNIT# 14:56 → ER 14:58
DX: E87.5 Hyperkalemia (principal); I48.91 Unspecified atrial fibrillation; J44.9 Chronic obstructive pulmonary disease, unspecified; I10 Essential (primary) hypertension; E11.9 Type 2 diabetes mellitus without complications; F32.9 Major depressive disorder, single episode, unspecified; E78.00 Pure hypercholesterolemia, unspecified; I25.10 Atherosclerotic heart disease of native coronary artery without angina pectoris; K21.9 Gastro-esophageal reflux disease without esophagitis; Z79.01 Long term (current) use of anticoagulants; Z79.82 Long term (current) use of aspirin; Z79.4 Long term (current) use of insulin
CPT/HCPCS: 36415; 80053; 81000; 85025; 93005; 96361; 96374

== ENCOUNTER → 2019-03-25 | Outpatient (CLI) | payer MEDICARE ==
[2019-03-25 12:02] LABS: CALCIUM 9.5 MG/DL (8.5-10.1); CREATININE SERUM 2.29 MG/DL (0.60-1.30)
[2019-03-25 13:14] LABS: POTASSIUM 6.5 MMOL/L (3.6-5.0)
== END ==
LOC: LAB 11:26
PROVIDERS: ATTEND Nurse Practitioner
DX: E11.621 Type 2 diabetes mellitus with foot ulcer (principal); L97.512 Non-pressure chronic ulcer of other part of right foot with fat layer exposed; I70.235 Atherosclerosis of native arteries of right leg with ulceration of other part of foot
CPT/HCPCS: 36415; 80048

== ENCOUNTER → 2019-03-26 | Outpatient (CLI) | payer MEDICARE | LOC: WOUNDCARE 10:26 | PROVIDERS: ATTEND Nurse Practitioner | DX: E11.621 Type 2 diabetes mellitus with foot ulcer (principal); L97.512 Non-pressure chronic ulcer of other part of right foot with fat layer exposed; I70.235 Atherosclerosis of native arteries of right leg with ulceration of other part of foot | CPT/HCPCS: 99213 ==

== ENCOUNTER → 2019-03-26 | Outpatient (CLI) | payer MEDICARE ==
[2019-03-26 11:40] LABS: CALCIUM 9.2 MG/DL (8.5-10.1); CREATININE SERUM 2.31 MG/DL (0.60-1.30); POTASSIUM 5.5 MMOL/L (3.6-5.0)
== END ==
LOC: LAB 11:08
PROVIDERS: ATTEND Nurse Practitioner
DX: E11.621 Type 2 diabetes mellitus with foot ulcer (principal); L97.512 Non-pressure chronic ulcer of other part of right foot with fat layer exposed; I70.235 Atherosclerosis of native arteries of right leg with ulceration of other part of foot
CPT/HCPCS: 36415; 80048

== ENCOUNTER → 2019-04-02 | Outpatient (CLI) | payer MEDICARE ==
[2019-04-02 12:00] LABS: CALCIUM 9.8 MG/DL (8.5-10.1); CREATININE SERUM 1.87 MG/DL (0.60-1.30); POTASSIUM 5.4 MMOL/L (3.6-5.0)
== END ==
LOC: LAB 11:22
PROVIDERS: ATTEND Nurse Practitioner
DX: E11.621 Type 2 diabetes mellitus with foot ulcer (principal); L97.512 Non-pressure chronic ulcer of other part of right foot with fat layer exposed; I70.235 Atherosclerosis of native arteries of right leg with ulceration of other part of foot
CPT/HCPCS: 36415; 80048

== ENCOUNTER → 2019-04-02 | Outpatient (CLI) | payer MEDICARE | LOC: WOUNDCARE 10:28 | PROVIDERS: ATTEND Nurse Practitioner | DX: E11.621 Type 2 diabetes mellitus with foot ulcer (principal); L97.512 Non-pressure chronic ulcer of other part of right foot with fat layer exposed; I70.235 Atherosclerosis of native arteries of right leg with ulceration of other part of foot; E11.52 Type 2 diabetes mellitus with diabetic peripheral angiopathy with gangrene | CPT/HCPCS: 99213 ==

== ENCOUNTER → 2019-04-09 | Outpatient (CLI) | payer MEDICARE ==
[2019-04-09 12:01] LABS: CALCIUM 9.4 MG/DL (8.5-10.1); CREATININE SERUM 1.63 MG/DL (0.60-1.30); POTASSIUM 5.3 MMOL/L (3.6-5.0)
== END ==
LOC: LAB 11:21
PROVIDERS: ATTEND Nurse Practitioner
DX: E11.621 Type 2 diabetes mellitus with foot ulcer (principal); L97.512 Non-pressure chronic ulcer of other part of right foot with fat layer exposed; I70.235 Atherosclerosis of native arteries of right leg with ulceration of other part of foot
CPT/HCPCS: 36415; 80048

== ENCOUNTER → 2019-04-09 | Outpatient (CLI) | payer MEDICARE | LOC: WOUNDCARE 10:28 | PROVIDERS: ATTEND Nurse Practitioner | DX: E11.621 Type 2 diabetes mellitus with foot ulcer (principal); L97.512 Non-pressure chronic ulcer of other part of right foot with fat layer exposed; I70.235 Atherosclerosis of native arteries of right leg with ulceration of other part of foot; E11.52 Type 2 diabetes mellitus with diabetic peripheral angiopathy with gangrene | CPT/HCPCS: 99213 ==

== ENCOUNTER → 2019-04-16 | Outpatient (CLI) | payer MEDICARE ==
--- NOTE | 2019-04-16 12:57 | Diagnostic Imaging Report ---
INDICATION: Nonhealing diabetic wound/ulcer. COMPARISON: 02/19/2019. FINDINGS: Three radiographic views of right great toe were obtained and show interval development of advanced osteolytic changes involving the adjacent margins of the first proximal and distal phalanges epicentered at the interphalangeal joint space. There is moderate overlying soft tissue swelling. No unexpected radiopaque foreign bodies are identified. No other acute-appearing osseous abnormalities are seen. IMPRESSION: 1. Interval development of moderate osteolytic changes epicentered at the first interphalangeal joint space as described above concerning for osteomyelitis. Dictated by: Dictated on workstation # [id number]
== END ==
LOC: RAD 11:23
PROVIDERS: ATTEND Orthopaedic Surgery Hand Surgery
DX: E11.621 Type 2 diabetes mellitus with foot ulcer (principal); L97.512 Non-pressure chronic ulcer of other part of right foot with fat layer exposed; I70.235 Atherosclerosis of native arteries of right leg with ulceration of other part of foot
CPT/HCPCS: 73660

== ENCOUNTER → 2019-04-16 | Outpatient (CLI) | payer MEDICARE | LOC: WOUNDCARE 10:32 | PROVIDERS: ATTEND Orthopaedic Surgery Hand Surgery | DX: L97.512 Non-pressure chronic ulcer of other part of right foot with fat layer exposed (principal); E11.621 Type 2 diabetes mellitus with foot ulcer; E11.52 Type 2 diabetes mellitus with diabetic peripheral angiopathy with gangrene; I70.235 Atherosclerosis of native arteries of right leg with ulceration of other part of foot | CPT/HCPCS: 11042 ==

== ENCOUNTER → 2019-04-23 | Outpatient (CLI) | payer MEDICARE ==
[~2019-04-23] MED LIST changes: -TAMS0.4C98 PO; +TMSL.4C PO
== END ==
LOC: WOUNDCARE 10:23
PROVIDERS: ATTEND Orthopaedic Surgery Hand Surgery
DX: E11.621 Type 2 diabetes mellitus with foot ulcer (principal); L97.512 Non-pressure chronic ulcer of other part of right foot with fat layer exposed; I70.235 Atherosclerosis of native arteries of right leg with ulceration of other part of foot; M86.171 Other acute osteomyelitis, right ankle and foot
CPT/HCPCS: 87070; 87205; 99213

== ENCOUNTER → 2019-04-30 | Outpatient (CLI) | payer MEDICARE | LOC: WOUNDCARE 10:23 | PROVIDERS: ATTEND Orthopaedic Surgery Hand Surgery | DX: E11.621 Type 2 diabetes mellitus with foot ulcer (principal); E11.52 Type 2 diabetes mellitus with diabetic peripheral angiopathy with gangrene; I70.261 Atherosclerosis of native arteries of extremities with gangrene, right leg; L97.516 Non-pressure chronic ulcer of other part of right foot with bone involvement without evidence of necrosis | CPT/HCPCS: 97597 ==

== ENCOUNTER → 2019-05-07 | Outpatient (CLI) | payer MEDICARE | LOC: WOUNDCARE 10:27 | PROVIDERS: ATTEND Orthopaedic Surgery Hand Surgery | DX: L97.516 Non-pressure chronic ulcer of other part of right foot with bone involvement without evidence of necrosis (principal); E11.621 Type 2 diabetes mellitus with foot ulcer; I70.261 Atherosclerosis of native arteries of extremities with gangrene, right leg; M86.171 Other acute osteomyelitis, right ankle and foot; L03.011 Cellulitis of right finger | CPT/HCPCS: 97597 ==

== ENCOUNTER → 2019-05-21 | Outpatient (CLI) | payer MEDICARE | LOC: WOUNDCARE 10:28 | PROVIDERS: ATTEND Orthopaedic Surgery Hand Surgery | DX: E11.621 Type 2 diabetes mellitus with foot ulcer (principal); L97.516 Non-pressure chronic ulcer of other part of right foot with bone involvement without evidence of necrosis; I70.261 Atherosclerosis of native arteries of extremities with gangrene, right leg; M86.171 Other acute osteomyelitis, right ankle and foot | CPT/HCPCS: 99212 ==

== ENCOUNTER 2019-07-01 15:01 | Emergency (ER) | payer MEDICARE ==
[~2019-07-01] VITALS: Ht 170.2 cm; Wt 90.7 kg
[~2019-07-01 15:01] MED LIST changes: +ACHD5005 PO; -HYDR-3812 PO
[2019-07-01] MEDS ORDERED: RT-ALBUTEROL/IPRATROPIUM 3 ML (DUONEB) VIAL INH ONE (15:15)
[2019-07-01 15:24] LABS: BASOPHILS % (AUTO) 0 % (0-10); EOSINOPHILS # (AUTO) 0.4 10^3/uL (0.0-0.3); EOSINOPHILS % (AUTO) 4 % (0-10); HEMATOCRIT 40 % (40-54); HEMOGLOBIN 12.6 G/DL (13.3-17.7); LYMPHOCYTES # (AUTO) 1.9 X 10^3 (1.0-4.0); LYMPHOCYTES % (AUTO) 16 % (12-44); MEAN CORPUSCULAR HEMOGLOBIN 24 PG (25-34); MEAN CORPUSCULAR HGB CONC 31 G/DL (32-36); MEAN CORPUSCULAR VOLUME 78 FL (80-99); MEAN PLATELET VOLUME 8.3 FL (7.4-10.4); MONOCYTES # (AUTO) 0.8 X 10^3 (0.0-1.0); MONOCYTES % (AUTO) 6 % (0-12); NEUTROPHILS % (AUTO) 74 % (42-75); PLATELET COUNT 267 10^3/uL (130-400); RED CELL DISTRIBUTION WIDTH 17.6 % (10.0-14.5); WHITE BLOOD COUNT 12.1 10^3/uL (4.3-11.0)
[2019-07-01 15:33] LABS: INR 1.2 (0.8-1.4)
[2019-07-01 15:45] LABS: ALBUMIN 3.7 GM/DL (3.2-4.5); BILIRUBIN,TOTAL 0.2 MG/DL (0.1-1.0); CALCIUM 9.4 MG/DL (8.5-10.1); CREATININE SERUM 1.71 MG/DL (0.60-1.30); POTASSIUM 4.5 MMOL/L (3.6-5.0); TOTAL PROTEIN 7.7 GM/DL (6.4-8.2)
--- NOTE | 2019-07-01 15:46 | ED Respiratory ---
General Chief Complaint: Respiratory Problems Stated Complaint: SOA Nursing Triage Note: PT TO ROOM 08 VIA W/C FROM [facility] WITH C/O SOB. History of Present Illness Date Seen by Provider: Jul 01, 2019 Time Seen by Provider: 15:15 Initial Comments 89-year-old male presents after being seen at the [facility] clinic earlier today for shortness of air and SaO2 in the upper 80s to lower 90s. He has not been on home oxygen for approximately 9 months. He has a history of COPD and A. fib, he is on Eliquis daily. No history of exposure to COVID 19 patients, no fevers, chills. Stays at home and family or caregivers see him daily. Daughter reports only Medication change, decreased Trazadone to 1/2 tablet and started Melatonin. Timing/Duration: yesterday Prior Episodes/Possible Cause: occasional episodes Modifying Factors: Improves With Albuterol Nebulizer, Improves With Oxygen, Improves With Rest Associated Symptoms: cough, nasal congestion, shortness of breath, wheezing Allergies and Home Medications Allergies Coded Allergies: doxycycline (Verified Adverse Reaction, Unknown, 07/01/19) sulfamethoxazole (Verified Adverse Reaction, Unknown, 07/01/19) trimethoprim (Verified Adverse Reaction, Unknown, 07/01/19) Home Medications Albuterol Sulfate 18 Gm Hfa.aer.ad, 2 PUFF INH Q6H PRN for SHORTNESS OF BREATH, (Reported) Albuterol Sulfate 0.63 Mg/3 Ml Vial.neb, 3 ML NEB Q4H PRN for SHORTNESS OF BREATH, (Reported) Albuterol Sulfate 0.63 Mg/3 Ml Vial.neb, 3 ML NEB TID, (Reported) Apixaban 5 Mg Tablet, 5 MG PO BID Prescribed by: NOEMI HEBERT on 04/10/18 1619 Aspirin 81 Mg Tablet.dr, 81 MG PO DAILY, (Reported) Atorvastatin Calcium 80 Mg Tablet, 80 MG PO DAILY, (Reported) Budesonide/Formoterol Fumarate 10.2 Gm Hfa.aer.ad, 2 PUFF IH BID, (Reported) Cefdinir 300 Mg Capsule, 300 MG PO BID Prescribed by: ZEYNEP CARBAJAL on 03/31/18 1110 Cholecalciferol (Vitamin D3) 1,000 Unit Capsule, 1,000 UNIT PO DAILY, (Reported) Cyanocobalamin 1,000 Mcg/Ml Inj, 1,000 MCG IM MONTHLY, (Reported) Cyclobenzaprine HCl 10 Mg Tablet, 5 MG PO TID PRN for MUSCLE SPASMS Prescribed by: ZEYNEP CARBAJAL on 03/31/18 1110 Diltiazem HCl 90 Mg Tablet, 180 MG PO DAILY, (Reported) TAKES 2 (90MG) TABLETS HOLD IF SPB LESS THAN 100 Docusate Sodium 100 Mg Capsule, 100 MG PO BID, (Reported) Fexofenadine HCl 180 Mg Tablet, 180 MG PO DAILY PRN for ALLERGIES, (Reported) Folic Acid 1 Mg Tablet, 1 MG PO DAILY, (Reported) Furosemide 20 Mg Tablet, 20 MG PO DAILY, (Reported) Guaifenesin 600 Mg Tab.er.12h, 600 MG PO BID, (Reported) Hydrocodone Bit/Acetaminophen 1 Each Tablet, 1-2 TAB PO BID, (Reported) 1 TABLET FOR PAIN RATE 1-5 2 TABS FOR PAIN RATE 6-10 Insulin Aspart 100 Unit/1 Ml Susp, 3 UNIT SQ AC, (Reported) HOLD AND NOTIFY PHYSICIAN IF BG<60 Lanolin/Min Oil/Petrolat,Wht 3.5 Gm Oint...g., 2 DROP OU Q4H PRN for EYE PAIN, (Reported) Lisinopril 10 Mg Tablet, 10 MG PO DAILY, (Reported) HOLD IF SBP<100 OR DBP<50 OR PULSE<60 Metoprolol Tartrate 50 Mg Tablet, 50 MG PO BID, (Reported) Multivits,Stress Formula/Zinc 1 Each Tablet, 1 TAB PO DAILY, (Reported) Nitroglycerin 0.4 Mg Tab.subl, 0.4 MG SL UD PRN for CHEST PAIN, (Reported) Shanks-3 Acid Ethyl Esters 1 Gm Capsule, 1 GM PO QID, (Reported) Omeprazole 20 Mg Tablet.dr, 20 MG PO DAILY, (Reported) Ondansetron HCl 4 Mg Tab, 4 MG PO Q6H PRN for NAUSEA/VOMITING-1ST LINE, (Reported) Phenol 177 Ml [place], 2 SPRAYS PO Q2H PRN for SORE THROAT, (Reported) Polyethylene Glycol 3350 17 Gm Powd.pack, 17 GM PO DAILY, (Reported) Sertraline HCl 100 Mg Tablet, 100 MG PO DAILY, (Reported) Tamsulosin HCl 0.4 Mg Cap, 0.4 MG PO DAILY, (Reported) Tiotropium [place] 1 Inh Aerp, 1 CAP IH DAILY, (Reported) Trolamine Salicylate 85 Gm Cream..g., TP BID, (Reported) APPLY TO LOWER BACK Patient Home Medication List Home Medication List Reviewed: Yes Review of Systems Review of Systems Constitutional: no symptoms reported, see HPI Respiratory: see HPI, cough, dyspnea on exertion, short of breath Cardiovascular: no symptoms reported, see HPI; No chest pain Gastrointestinal: no symptoms reported, see HPI All Other Systems Reviewed Negative Unless Noted: Yes Past Bjpocto-Ofacur-Yvffuq Hx Past Med/Social Hx: Reviewed Nursing Past Med/Soc Hx Patient Social History Alcohol Use: Denies Use Number of Drinks Today: Alcohol Beverage of Choice: Wine Recreational Drug Use: No Smoking Status: Never a Smoker 2nd Hand Smoke Exposure: No Recent Foreign Travel: No Contact w/Someone Who Travel: No Recent Infectious Disease Expo: No Recent Hopitalizations: No Physical Abuse: No Sexual Abuse: No Mistreated: No Fear: No Immunizations Up To Date Tetanus Booster (TDap): Unknown Date of Pneumonia Vaccine: Jun 08, 2017 Date of Influenza Vaccine: Jan 15, 2018 Seasonal Allergies Seasonal Allergies: No Past Medical History Surgeries: Yes Gallbladder Respiratory: Yes Pneumonia, Sleep Apnea, COPD Cardiac: Yes Atrial Fibrillation, Coronary Artery Disease, High Cholesterol, Hypertension, Peripheral Vascular Neurological: Yes (polio) Sexually Transmitted Disease: No Genitourinary: Yes Benign Prostatic Hyperpl, Renal Failure Gastrointestinal: Yes Gastroesophageal Reflux Musculoskeletal: Yes (HX OF POLIO) Arthritis Endocrine: Yes Diabetes, Insulin dep HEENT: No Cancer: No Psychosocial: Yes Depression Integumentary: No Family Medical History No Pertinent Family Hx Physical Exam Vital Signs - First Documented 07/01/19 07/01/19 15:14 15:30 Temp 37.1 Pulse 122 Resp 26 B/P (MAP) 151/78 (102) Pulse Ox 97 O2 Delivery Nasal Cannula O2 Flow Rate 2.00 Capillary Refill : Less Than 3 Seconds Height: 5'9.00" Weight: 207lbs. 3.0oz. 93.187856pm; 31.00 BMI Method:Stated General Appearance: WD/WN, mild distress Eyes: Bilateral Eye Normal Inspection, Bilateral Eye PERRL, Bilateral Eye EOMI HEENT: PERRL/EOMI, normal ENT inspection, TMs normal, pharynx normal Neck: non-tender, full range of motion, supple, normal inspection Respiratory: chest non-tender, decreased breath sounds, accessory muscle use, wheezing Cardiovascular: normal peripheral pulses, tachycardia, diastolic murmur, irre gularly irregular Gastrointestinal: normal bowel sounds, non tender, soft Extremities: normal range of motion, non-tender, normal inspection Neurologic/Psychiatric: no motor/sensory deficits, alert, normal mood/affect, oriented x 3 Skin: normal color, warm/dry Focused Exam Lactate Level 07/01/19 15:10: Lactic Acid Level 2.15*H Lactic Acid Level Laboratory Tests Test 07/01/19 15:10 Lactic Acid Level 2.15 MMOL/L (0.50-2.00) *H Progress/Results/Core Measures Suspected Sepsis Recent Fever Within 48 Hours: No Infection Criteria Present: None New/Unexplained Altered Menta: No Sepsis Screen: No Definite Risk SIRS Temperature: Pulse: 122 Respiratory Rate: 26 Laboratory Tests 07/01/19 15:10: White Blood Count 12.1H Blood Pressure 151 /78 Mean: 102 07/01/19 15:10: Lactic Acid Level 2.15*H Laboratory Tests 07/01/19 15:10: Creatinine 1.71H, INR Comment 1.2, Platelet Count 267, Total Bilirubin 0.2 Results/Orders Lab Results Laboratory Tests Test 07/01/19 15:10 07/01/19 16:30 Range/Units White Blood Count 12.1 H 4.3-11.0 10^3/uL Red Blood Count 5.16 4.35-5.85 10^6/uL Hemoglobin 12.6 L 13.3-17.7 G/DL Hematocrit 40 40-54 % Mean Corpuscular Volume 78 L 80-99 FL Mean Corpuscular Hemoglobin 24 L 25-34 PG Mean Corpuscular Hemoglobin Concent 31 L 32-36 G/DL Red Cell Distribution Width 17.6 H 10.0-14.5 % Platelet Count 267 130-400 10^3/uL Mean Platelet Volume 8.3 7.4-10.4 FL Neutrophils (%) (Auto) 74 42-75 % Lymphocytes (%) (Auto) 16 12-44 % Monocytes (%) (Auto) 6 0-12 % Eosinophils (%) (Auto) 4 0-10 % Basophils (%) (Auto) 0 0-10 % Neutrophils # (Auto) 9.0 H 1.8-7.8 X 10^3 Lymphocytes # (Auto) 1.9 1.0-4.0 X 10^3 Monocytes # (Auto) 0.8 0.0-1.0 X 10^3 Eosinophils # (Auto) 0.4 H 0.0-0.3 10^3/uL Basophils # (Auto) 0.0 0.0-0.1 10^3/uL Prothrombin Time 16.0 H 12.2-14.7 SEC INR Comment 1.2 0.8-1.4 Activated Partial Thromboplast Time 33 24-35 SEC Sodium Level 140 135-145 MMOL/L Potassium Level 4.5 3.6-5.0 MMOL/L Chloride Level 105 98-107 MMOL/L Carbon Dioxide Level 23 21-32 MMOL/L Anion Gap 12 5-14 MMOL/L Blood Urea Nitrogen 41 H 7-18 MG/DL Creatinine 1.71 H 0.60-1.30 MG/DL Estimat Glomerular Filtration Rate 38 BUN/Creatinine Ratio 24 Glucose Level 184 H 70-105 MG/DL Lactic Acid Level 2.15 *H 0.50-2.00 MMOL/L Calcium Level 9.4 8.5-10.1 MG/DL Corrected Calcium 9.6 8.5-10.1 MG/DL Total Bilirubin 0.2 0.1-1.0 MG/DL Aspartate Amino Transf (AST/SGOT) 24 5-34 U/L Alanine Aminotransferase (ALT/SGPT) 25 0-55 U/L Alkaline Phosphatase 79 40-136 U/L Troponin I < 0.028 <0.028 NG/ML B-Type Natriuretic Peptide 139.9 H <100.0 PG/ML Total Protein 7.7 6.4-8.2 GM/DL Albumin 3.7 3.2-4.5 GM/DL Urine Color YELLOW Urine Clarity CLEAR Urine pH 5.5 5-9 Urine Specific [place] 1.025 H 1.016-1.022 Urine Protein TRACE H NEGATIVE Urine Glucose (UA) NEGATIVE NEGATIVE Urine Ketones NEGATIVE NEGATIVE Urine Nitrite NEGATIVE NEGATIVE Urine Bilirubin NEGATIVE NEGATIVE Urine Urobilinogen 0.2 < = 1.0 MG/DL Urine Leukocyte Esterase TRACE H NEGATIVE Urine RBC (Auto) NEGATIVE NEGATIVE Urine RBC RARE /HPF Urine WBC 5-10 H /HPF Urine Squamous Epithelial Cells 0-2 /HPF Urine Crystals NONE /LPF Urine Bacteria FEW H /HPF Urine Casts NONE /LPF Urine Mucus NEGATIVE /LPF Urine Culture Indicated CULTURE PENDING Micro Results Microbiology 07/01/19 Influenza Types A,B Antigen (YVAN) - Final, Complete My Orders Orders - SUSANNENILS Cbc With Automated Diff (07/01/19 15:12) Comprehensive Metabolic Panel (07/01/19 15:12) Blood Culture (07/01/19 15:12) Sputum Culture (07/01/19 15:12) Urinalysis (07/01/19 15:12) Urine Culture (07/01/19 15:12) Protime With Inr (07/01/19 15:12) Partial Thromboplastin Time (07/01/19 15:12) Chest 1 View, Ap/Pa Only (07/01/19 15:12) Ed Iv/Invasive Line Start (07/01/19 15:12) O2 (07/01/19 15:12) Influenza A And B Antigens (07/01/19 15:12) Lactic Acid Analyzer (07/01/19 15:12) Albuterol/Ipra Inhalation Soln (Duoneb I (07/01/19 15:15) Svn Small Volume Nebulizer (07/01/19 15:13) Ekg Tracing (07/01/19 15:14) Methylprednisolone Sod Succ (Solu-Medrol (07/01/19 16:00) Ed Iv/Invasive Line Start (07/01/19 15:59) Ns Iv 1000 Ml (Sodium Chloride 0.9%) (07/01/19 15:59) Ns Iv 1000 Ml (Sodium Chloride 0.9%) (07/01/19 15:58) Troponin I (07/01/19 16:12) BNP (07/01/19 16:12) Medications Given in ED Current Medications Medications Dose Ordered Sig/Claude Route Start Time Stop Time Status Last Admin Dose Admin Albuterol/ Ipratropium 3 ml ONCE ONCE INH 07/01/19 15:15 07/01/19 15:16 DC 07/01/19 15:26 3 ML Methylprednisolone Sodium Succinate 125 mg ONCE ONCE IVP 07/01/19 16:00 07/01/19 16:01 DC 07/01/19 16:06 125 MG Vital Signs/I&O 07/01/19 07/01/19 07/01/19 3/25/20 15:14 15:30 15:36 17:37 Temp 37.1 Pulse 122 116 Resp 26 19 B/P (MAP) 151/78 (102) 153/99 Pulse Ox 97 93 94 O2 Delivery Nasal Cannula Room Air Nasal Cannula Room Air O2 Flow Rate 2.00 2.00 2.00 Capillary Refill : Less Than 3 Seconds Blood Pressure Mean: 102 Progress Note : Time: 15:15 Progress Note Patient seen and evaluated, will obtain breathing treatment of DuoNeb with RT, labs, EKG and chest x-ray. SaO2 91-93% at 2 L per nasal cannula.1 L NS per IV 1545 spoke to daughter by phone, she is waiting and parking lot. We'll keep her updated. She would like Patient re-admitted to [facility], she has already called them. Explained that he may require admission, but I don't have all his labs and x-rays yet. 1600 less dyspnea since having breathing treatment. Heart rate 90s. Less respiratory distress, breathing non-labored. Sa O2 92-95% on 2 L, decreased to 1.5L per NC. 1630 X-rays shows no acute findings, labs WNL. Patient agreeable to [facility]. 1700 Spoke with sap director at [facility], she will contact Dr. Esqueda or covering physician for orders to admit, daughter agreeable to drive him to [facility]. Discharge instruction and return precautions reviewed with the patient and discussed with the daughter per phone. All questions answered. ECG Initial ECG Impression Date: Jul 01, 2019 Initial ECG Impression Time: 15:24 Initial ECG Rate: 104 Initial ECG Rhythm: A Fib/Flutter (with RVR) Initial ECG Intervals: Normal Initial ECG Intervals QRST 130, QT 364, QTc 479. [place] QRS 81, T 21 Departure Impression Primary Impression: COPD exacerbation Additional Impression: Atrial fibrillation Qualified Codes: I48.91 - Unspecified atrial fibrillation Disposition: SNF Condition: Stable Departure-Patient Inst. Decision time for Depature: 17:00 Referrals: ISAAC ESQUEDA MD (PCP/Family) Primary Care Physician Patient Instructions: Exacerbation of COPD (DC) Add. Discharge Instructions: Continue medications as prescribed with the [facility]. Use oxygen 1-3 L at all times per nasal cannula to maintain SaO2 greater than 90%. Respiratory therapy treatments every 4 hours. Return to the emergency department for new, acute health care problems. All discharge instructions reviewed with patient and/or family. Voiced understanding. Copy Copies To 1: SELF,NILS CAICEDO MD Jul 01, 2019 15:46
[2019-07-01] MEDS ORDERED: NS IV 1000 ML 1,000 ML ONE (15:58)
[2019-07-01] MEDS ORDERED: NS IV 1000 ML 1,000 ML IV SCH (15:59)
[2019-07-01] MEDS ORDERED: methylPREDNISolone 125 MG (Solu-MEDROL) VIAL IVP ONE (16:00)
--- NOTE | 2019-07-01 16:20 | Diagnostic Imaging Report ---
INDICATION: Dyspnea. TECHNIQUE: An AP view of the chest was obtained with comparison made to the study of 04/03/2018. FINDINGS: The overall heart size and pulmonary vascularity are within normal limits. There is continued elevation of the right hemidiaphragm. No pneumothorax or consolidation is identified. IMPRESSION: Stable chest without acute abnormality detected. Dictated by: Dictated on workstation # [id number]
[2019-07-01 17:02] LABS: BILIRUBIN,URINE NEGATIVE (NEGATIVE); CLARITY,URINE CLEAR; COLOR,URINE YELLOW; GLUCOSE, URINE (UA) NEGATIVE (NEGATIVE); KETONES,URINE NEGATIVE (NEGATIVE); LEUKOCYTE ESTERASE ,URINE TRACE (NEGATIVE); NITRITE,URINE NEGATIVE (NEGATIVE); PH,URINE 5.5 (5-9); PROTEIN,URINE TRACE (NEGATIVE)
[2019-07-01 17:09] LABS: BACTERIA,URINE FEW /HPF; RBC,URINE RARE /HPF; SQUAMOUS EPITHELIAL CELL,UR 0-2 /HPF
[2019-07-01 17:37] VITALS: BP 153/99
--- OUTSIDE RECORDS SUMMARY | 2019-07-01 18:13 | XMS REPORT | Continuity of Care Document ---
Demographics x Preferred Language Unknown Marital Status Unknown Sikh Affiliation Unknown Race Unknown Ethnic Group Unknown Author Organization Unknown Address Unknown Phone Unavailable Allergies Active Description Code Type Severity Reaction Onset Reported/Identified Relationship to Patient Clinical Status Yes No Known Drug Allergies [id number] Drug Allergy Unknown N/A 03/27/2018 Yes doxycycline [id number] Drug Aller gy Unknown N/A 07/01/2019 Yes sulfamethoxazole [id number] Drug Allergy Unknown N/A 07/01/2019 Yes trimethoprim [id number] Drug Allergy Unknown N/A 07/01/2019 Medications There is no data. Problems Date Dx Coded Attending Type Code Diagnosis Diagnosed By 07/16/2017 SELF ISAAC GARVIN Ot E78.5 HYPERLIPIDEMIA, UNSPECIFIED 07/16/2017 SELF ISAAC GARVIN Ot R11.2 NAUSEA WITH VOMITING, UNSPECIFIED 07/16/2017 SELF ISAAC GARVIN Ot E78.5 HYPERLIPIDEMIA, UNSPECIFIED 07/16/2017 SELF LUIS A GARVINWELL Ot R11.2 NAUSEA WITH VOMITING, UNSPECIFIED 07/16/2017 SELF ISAAC GARVIN Ot E78.5 HYPERLIPIDEMIA, UNSPECIFIED 07/16/2017 SELF ISAAC GARVIN Ot R11.2 NAUSEA WITH VOMITING, UNSPECIFIED 07/16/2017 SELF ISAAC GARVIN Ot E78.5 HYPERLIPIDEMIA, UNSPECIFIED 07/16/2017 SELF ISAAC GARVIN Ot R11.2 NAUSEA WITH VOMITING, UNSPECIFIED 07/16/2017 SELF ISAAC GARVIN Ot E78.5 HYPERLIPIDEMIA, UNSPECIFIED 07/16/2017 SELF ISAAC GARVIN Ot R11.2 NAUSEA WITH VOMITING, UNSPECIFIED 07/17/2017 SELF ISAAC GARVIN Ot E78.5 HYPERLIPIDEMIA, UNSPECIFIED 07/17/2017 SELF ISAAC GARVIN Ot R11.2 NAUSEA WITH VOMITING, UNSPECIFIED 07/25/2017 SELF ISAAC GARVIN Ot E78.5 HYPERLIPIDEMIA, UNSPECIFIED 07/25/2017 SELF LUIS A GARVINWELL Ot R11.2 NAUSEA WITH VOMITING, UNSPECIFIED 08/21/2017 SELF ISAAC GARVIN Ot E78.5 HYPERLIPIDEMIA, UNSPECIFIED 08/21/2017 SELF ISAAC GARVIN Ot R11.2 NAUSEA WITH VOMITING, UNSPECIFIED 09/20/2017 ISAAC MAR MD Ot E78.5 HYPERLIPIDEMIA, UNSPECIFIED 09/20/2017 ISAAC MAR MD Ot R11.2 NAUSEA WITH VOMITING, UNSPECIFIED 09/20/2017 HOMERO CARRILLO MD Ot 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 09/23/2017 HOMERO CARRILLO MD Ot B91 SEQUELAE OF POLIOMYELITIS 09/23/2017 HOMERO CARRILLO MD, Ot C44.219 BASAL CELL CARCINOMA SKIN/ LEFT EAR AND 09/23/2017 HOMERO CARRILLO MD, Ot 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 MELLITUS WITH FOOT ULCER 09/23/2017 HOMERO CARRILLO MD, Ot 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 09/23/2017 HOMERO CARRILLO MD, Ot L89.623 PRESSURE ULCER OF LEFT HEEL, STAGE 3 09/23/2017 HOMERO CARRILLO MD Ot 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 OTH PRT RIGHT FOOT 09/23/2017 HOMERO CARRILLO MD, Ot 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 MELLITUS WITH FOOT ULCER 09/23/2017 HOMERO CARRILLO MD Ot 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 OTH PRT RIGHT FOOT 09/30/2017 HOMERO CARRILLO MD Ot B91 SEQUELAE OF POLIOMYELITIS 09/30/2017 HOMERO CARRILLO MD, Ot 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 09/30/2017 HOMERO ACRRILLO MD, Ot 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 MELLITUS WITH FOOT ULCER 09/30/2017 HOMERO CARRILLO MD Ot 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 09/30/2017 HOMERO CARRILLO MD Ot L89.623 PRESSURE ULCER OF LEFT HEEL, STAGE 3 09/30/2017 HOMERO CARRILLO MD Ot 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 OTH PRT RIGHT FOOT 10/01/2017 HOMERO CARRILLO MD Ot B91 SEQUELAE OF POLIOMYELITIS 10/01/2017 HOMERO CARRILLO MD, Ot C44.219 BASAL CELL CARCINOMA SKIN/ LEFT EAR AND 10/01/2017 HOMERO CARRILLO MD Ot 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 MELLITUS WITH FOOT ULCER 10/01/2017 HOMERO CARRILLO MD Ot 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 10/01/2017 HOMERO CARRILLO MD, Ot L89.623 PRESSURE ULCER OF LEFT HEEL, STAGE 3 10/01/2017 HOMERO CARRILLO MD Ot 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 OTH PRT RIGHT FOOT 10/08/2017 HOMERO CARRILLO MD, Ot B91 SEQUELAE OF POLIOMYELITIS 10/08/2017 HOMERO CARRILLO MD, Ot C44.219 BASAL CELL CARCINOMA SKIN/ LEFT EAR AND 10/08/2017 HOMERO CARRILLO MD Ot 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 MELLITUS WITH FOOT ULCER 10/08/2017 HOMERO CARRILLO MD Ot 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 10/08/2017 HOMERO CARRILLO MD, Ot L89.623 PRESSURE ULCER OF LEFT HEEL, STAGE 3 10/08/2017 HOMERO CARRILLO MD, Ot 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 OTH PRT RIGHT FOOT 10/11/2017 HOMERO CARRILLO MD, Ot B91 SEQUELAE OF POLIOMYELITIS 10/11/2017 HOMERO CARRILLO MD, Ot C44.219 BASAL CELL CARCINOMA SKIN/ LEFT EAR AND 10/11/2017 HOMERO CARRILLO MD, Ot 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 MELLITUS WITH FOOT ULCER 10/11/2017 HOMERO CARRILLO MD Ot 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 10/11/2017 HOMERO CARRILLO MD Ot L89.623 PRESSURE ULCER OF LEFT HEEL, STAGE 3 10/11/2017 HOMERO CARRILLO MD Ot 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 OTH PRT RIGHT FOOT 10/11/2017 HOMERO CARRILLO MD Ot B91 SEQUELAE OF POLIOMYELITIS 10/11/2017 HOMERO CARRILLO MD, Ot C44.219 BASAL CELL CARCINOMA SKIN/ LEFT EAR AND 10/11/2017 HOMERO CARRILLO MD Ot 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 MELLITUS WITH FOOT ULCER 10/11/2017 HOMERO CARRILLO MD Ot 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 10/11/2017 HOMERO CARRILLO MD Ot L89.623 PRESSURE ULCER OF LEFT HEEL, STAGE 3 10/11/2017 HOMERO CARRILLO MD Ot 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 OTH PRT RIGHT FOOT 10/14/2017 HOMERO CARRILLO MD Ot B91 SEQUELAE OF POLIOMYELITIS 10/14/2017 GERARDO MD, HOMERO G Ot C44.219 BASAL CELL CARCINOMA SKIN/ LEFT EAR AND 10/14/2017 HOMERO CARRILLO MD Ot 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 MELLITUS WITH FOOT ULCER 10/14/2017 HOMERO CARRILLO MD, Ot 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 10/14/2017 HOMERO CARRILLO MD Ot L89.623 PRESSURE ULCER OF LEFT HEEL, STAGE 3 10/14/2017 HOMERO CARRILLO MD Ot 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 OTH PRT RIGHT FOOT 10/14/2017 HOMERO CARRILLO MD Ot 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 MELLITUS WITH FOOT ULCER 10/14/2017 HOMERO CARRILLO MD, Ot 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 OTH PRT RIGHT FOOT 10/17/2017 HOMERO CARRILLO MD, Ot B91 SEQUELAE OF POLIOMYELITIS 10/17/2017 HOMERO CARRILLO MD, Ot C44.219 BASAL CELL CARCINOMA SKIN/ LEFT EAR AND 10/17/2017 HOMERO CARRILLO MD, Ot 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 MELLITUS WITH FOOT ULCER 10/17/2017 HOMERO CARRILLO MD, Ot 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 10/17/2017 HOMERO CARRILLO MD, Ot L89.623 PRESSURE ULCER OF LEFT HEEL, STAGE 3 10/17/2017 HOMERO CARRILLO MD, Ot 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 OTH PRT RIGHT FOOT 10/18/2017 HOMERO CARRILLO MD Ot B91 SEQUELAE OF POLIOMYELITIS 10/18/2017 HOMERO CARRILLO MD Ot 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 10/18/2017 HOMERO CARRILLO MD Ot 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 MELLITUS WITH FOOT ULCER 10/18/2017 HOMERO CARRILLO MD Ot 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 10/18/2017 HOMERO CARRILLO MD Ot L89.623 PRESSURE ULCER OF LEFT HEEL, STAGE 3 10/18/2017 HOMERO CARRILLO MD Ot 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 OTH PRT RIGHT FOOT 10/22/2017 HOMERO CARRILLO MD Ot B91 SEQUELAE OF POLIOMYELITIS 10/22/2017 HOMERO CARRILLO MD, Ot C44.219 BASAL CELL CARCINOMA SKIN/ LEFT EAR AND 10/22/2017 HOMERO CARRILLO MD Ot 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 MELLITUS WITH FOOT ULCER 10/22/2017 HOMERO CARRILLO MD Ot 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 10/22/2017 HOMERO CARRILLO MD Ot L89.623 PRESSURE ULCER OF LEFT HEEL, STAGE 3 10/22/2017 HOMERO CARRILLO MD Ot 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 OTH PRT RIGHT FOOT 10/22/2017 HOMERO CARRILLO MD Ot B91 SEQUELAE OF POLIOMYELITIS 10/22/2017 HOMERO CARRILLO MD Ot 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 10/22/2017 HOMERO CARRILLO MD, Ot 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 MELLITUS WITH FOOT ULCER 10/22/2017 HOMERO CARRILLO MD, Ot 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 10/22/2017 HOMERO CARRILLO MD, Ot L89.623 PRESSURE ULCER OF LEFT HEEL, STAGE 3 10/22/2017 HOMERO CARRILLO MD Ot 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 OTH PRT RIGHT FOOT 10/23/2017 HOMERO CARRILLO MD Ot B91 SEQUELAE OF POLIOMYELITIS 10/23/2017 HOMERO CARRILLO MD Ot 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 10/23/2017 HOMERO CARRILLO MD Ot 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 MELLITUS WITH FOOT ULCER 10/23/2017 HOMERO CARRILLO MD Ot 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 10/23/2017 HOMERO CARRILLO MD Ot L89.623 PRESSURE ULCER OF LEFT HEEL, STAGE 3 10/23/2017 HOMERO CARRILLO MD Ot 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 OTH PRT RIGHT FOOT 10/24/2017 HOMERO CARRILLO MD Ot B91 SEQUELAE OF POLIOMYELITIS 10/24/2017 HOMERO CARRILLO MD Ot 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 10/24/2017 HOMERO CARRILLO MD Ot 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 MELLITUS WITH FOOT ULCER 10/24/2017 HOMERO CARRILLO MD Ot 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 10/24/2017 HOMERO CARRILLO MD Ot L89.623 PRESSURE ULCER OF LEFT HEEL, STAGE 3 10/24/2017 HOMERO CARRILLO MD, Ot 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 OTH PRT RIGHT FOOT 10/25/2017 SELF , ISAAC Ot E78.5 HYPERLIPIDEMIA, UNSPECIFIED 10/25/2017 SELF ISAAC GARVIN Ot R11.2 NAUSEA WITH VOMITING, UNSPECIFIED 10/25/2017 HOMERO CARRILLO MD Ot B91 SEQUELAE OF POLIOMYELITIS 10/25/2017 HOMERO CARRILLO MD, Ot C44.219 BASAL CELL CARCINOMA SKIN/ LEFT EAR AND 10/25/2017 HOMERO CARRILLO MD, Ot 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 MELLITUS WITH FOOT ULCER 10/25/2017 HOMERO CARRILLO MD Ot 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 10/25/2017 HOMERO CARRILLO MD, Ot L89.623 PRESSURE ULCER OF LEFT HEEL, STAGE 3 10/25/2017 HOMERO CARRILLO MD, Ot 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 OTH PRT RIGHT FOOT 10/25/2017 HOMERO CARRILLO MD, Ot 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 MELLITUS WITH FOOT ULCER 10/25/2017 HOMERO CARRILLO MD, Ot 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 OTH PRT RIGHT FOOT 10/25/2017 HOMERO CARRILLO MD, Ot B91 SEQUELAE OF POLIOMYELITIS 10/25/2017 HOMERO CARRILLO MD, Ot 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 10/25/2017 HOMERO CARRILLO MD, Ot 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 MELLITUS WITH FOOT ULCER 10/25/2017 HOMERO CARRILLO MD Ot 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 10/25/2017 HOMERO CARRILLO MD Ot L89.623 PRESSURE ULCER OF LEFT HEEL, STAGE 3 10/25/2017 HOMERO CARRILLO MD Ot 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 OTH PRT RIGHT FOOT 10/25/2017 HOMERO CARRILLO MD Ot B91 SEQUELAE OF POLIOMYELITIS 10/25/2017 HOMERO CARRILLO MD, Ot C44.219 BASAL CELL CARCINOMA SKIN/ LEFT EAR AND 10/25/2017 HOMERO CARRILLO MD, Ot 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 MELLITUS WITH FOOT ULCER 10/25/2017 HOMERO CARRILLO MD Ot 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 10/25/2017 HOMERO CARRILLO MD, Ot L89.623 PRESSURE ULCER OF LEFT HEEL, STAGE 3 10/25/2017 HOMERO CARRILLO MD, Ot 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 OTH PRT RIGHT FOOT 10/25/2017 HOMERO CARRILLO MD Ot B91 SEQUELAE OF POLIOMYELITIS 10/25/2017 HOMERO CARRILLO MD, Ot C44.219 BASAL CELL CARCINOMA SKIN/ LEFT EAR AND 10/25/2017 HOMERO CARRILLO MD, Ot 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 MELLITUS WITH FOOT ULCER 10/25/2017 HOMERO CARRILLO MD, Ot 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 10/25/2017 HOMERO CARRILLO MD, Ot L89.623 PRESSURE ULCER OF LEFT HEEL, STAGE 3 10/25/2017 HOMERO CARRILLO MD, Ot 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 OTH PRT RIGHT FOOT 10/25/2017 HOMERO CARRILLO MD, Ot B91 SEQUELAE OF POLIOMYELITIS 10/25/2017 HOMERO CARRILLO MD, Ot C44.219 BASAL CELL CARCINOMA SKIN/ LEFT EAR AND 10/25/2017 HOMERO CARRILLO MD, Ot 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 MELLITUS WITH FOOT ULCER 10/25/2017 HOMERO CARRILLO MD, Ot 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 10/25/2017 HOMERO CARRILLO MD, Ot L89.623 PRESSURE ULCER OF LEFT HEEL, STAGE 3 10/25/2017 HOMERO CARRILLO MD Ot 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 OTH PRT RIGHT FOOT 10/25/2017 HOMERO CARRILLO MD Ot B91 SEQUELAE OF POLIOMYELITIS 10/25/2017 HOMERO CARRILLO MD, Ot 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 10/25/2017 HOMERO CARRILLO MD Ot 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 MELLITUS WITH FOOT ULCER 10/25/2017 HOMERO CARRILLO MD Ot 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 10/25/2017 HOMERO CARRILLO MD, Ot L89.623 PRESSURE ULCER OF LEFT HEEL, STAGE 3 10/25/2017 HOMERO CARRILLO MD Ot 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 OTH PRT RIGHT FOOT 10/26/2017 ISAAC MAR MD Ot E78.5 HYPERLIPIDEMIA, UNSPECIFIED 10/26/2017 ISAAC MAR MD Ot R11.2 NAUSEA WITH VOMITING, UNSPECIFIED 10/28/2017 HOMERO CARRILLO MD Ot B91 SEQUELAE OF POLIOMYELITIS 10/28/2017 HOMERO CARRILLO MD, Ot C44.219 BASAL CELL CARCINOMA SKIN/ LEFT EAR AND 10/28/2017 HOMERO CARRILLO MD Ot 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 MELLITUS WITH FOOT ULCER 10/28/2017 HOMERO CARRILLO MD Ot 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 10/28/2017 HOMERO CARRILLO MD Ot L89.623 PRESSURE ULCER OF LEFT HEEL, STAGE 3 10/28/2017 HOMERO CARRILLO MD Ot 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 OTH PRT RIGHT FOOT 10/30/2017 HOMERO CARRILLO MD, Ot B91 SEQUELAE OF POLIOMYELITIS 10/30/2017 HOMERO CARRILLO MD, Ot C44.219 BASAL CELL CARCINOMA SKIN/ LEFT EAR AND 10/30/2017 HOMERO CARRILLO MD Ot 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 MELLITUS WITH FOOT ULCER 10/30/2017 HOMERO CARRILLO MD Ot 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 10/30/2017 HOMERO CARRILLO MD Ot L89.623 PRESSURE ULCER OF LEFT HEEL, STAGE 3 10/30/2017 HOMERO CARRILLO MD Ot 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 OTH PRT RIGHT FOOT 10/30/2017 HOMERO CARRILLO MD Ot B91 SEQUELAE OF POLIOMYELITIS 10/30/2017 HOMERO CARRILLO MD, Ot C44.219 BASAL CELL CARCINOMA SKIN/ LEFT EAR AND 10/30/2017 HOMERO CARRILLO MD Ot 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 MELLITUS WITH FOOT ULCER 10/30/2017 HOMERO CARRILLO MD Ot 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 10/30/2017 HOMERO CARRILLO MD Ot L89.623 PRESSURE ULCER OF LEFT HEEL, STAGE 3 10/30/2017 HOMERO CARRILLO MD Ot 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 OTH PRT RIGHT FOOT 10/30/2017 HOMERO CARRILLO MD Ot B91 SEQUELAE OF POLIOMYELITIS 10/30/2017 HOMERO CARRILLO MD Ot C44.219 BASAL CELL CARCINOMA SKIN/ LEFT EAR AND 10/30/2017 HOMERO CARRILLO MD Ot 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 MELLITUS WITH FOOT ULCER 10/30/2017 HOMERO CARRILLO MD, Ot 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 10/30/2017 HOMERO CARRILLO MD, Ot L89.623 PRESSURE ULCER OF LEFT HEEL, STAGE 3 10/30/2017 HOMERO CARRILLO MD, Ot 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 OTH PRT RIGHT FOOT 11/04/2017 HOMERO CARRILLO MD, Ot B91 SEQUELAE OF POLIOMYELITIS 11/04/2017 HOMERO CARRILLO MD, Ot 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 MELLITUS WITH FOOT ULCER 11/04/2017 HOMERO CARRILLO MD, Ot 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 11/04/2017 HOMERO CARRILLO MD, Ot 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 OTH PRT RIGHT FOOT 11/26/2017 HOMERO CARRILLO MD, Ot B91 SEQUELAE OF POLIOMYELITIS 11/26/2017 HOMERO CARRILLO MD, Ot 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 MELLITUS WITH FOOT ULCER 11/26/2017 HOMERO CARRILLO MD, Ot 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 11/26/2017 HOMERO CARRILLO MD Ot L03.031 CELLULITIS OF RIGHT TOE 11/26/2017 HOMERO CARRILLO MD, Ot 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 OTH PRT RIGHT FOOT 12/03/2017 HOMERO CARRILLO MD, Ot B91 SEQUELAE OF POLIOMYELITIS 12/03/2017 HOMERO CARRILLO MD, Ot 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 MELLITUS WITH FOOT ULCER 12/03/2017 HOMERO CARRILLO MD, Ot 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 12/03/2017 HOMERO CARRILLO MD, Ot 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 OTH PRT RIGHT FOOT 12/03/2017 HOMERO CARRILLO MD Ot 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 MELLITUS WITH FOOT ULCER 12/03/2017 HOMERO CARRILLO MD, Ot 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 OTH PRT RIGHT FOOT 12/05/2017 HOMERO CARRILLO MD, Ot B91 SEQUELAE OF POLIOMYELITIS 12/05/2017 HOMERO CARRILLO MD Ot 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 12/05/2017 HOMERO CARRILLO MD Ot 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 MELLITUS WITH FOOT ULCER 12/05/2017 HOMERO CARRILLO MD, Ot 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 12/05/2017 HOMEOR CARRILLO MD Ot L89.623 PRESSURE ULCER OF LEFT HEEL, STAGE 3 12/05/2017 HOMERO CARRILLO MD, Ot 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 OTH PRT RIGHT FOOT 12/05/2017 HOMERO CARRILLO MD Ot B91 SEQUELAE OF POLIOMYELITIS 12/05/2017 HOMERO CARRILLO MD, Ot 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 12/05/2017 HOMERO CARRILLO MD Ot 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 MELLITUS WITH FOOT ULCER 12/05/2017 HOMERO CARRILLO MD, Ot 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 12/05/2017 HOMERO CARRILLO MD, Ot L89.623 PRESSURE ULCER OF LEFT HEEL, STAGE 3 12/05/2017 HOMERO CARRILLO MD, Ot 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 OTH PRT RIGHT FOOT 12/05/2017 HOMERO CARRILLO MD, Ot B91 SEQUELAE OF POLIOMYELITIS 12/05/2017 HOMERO CARRILLO MD, Ot C44.219 BASAL CELL CARCINOMA SKIN/ LEFT EAR AND 12/05/2017 HOMERO CARRILLO MD Ot 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 MELLITUS WITH FOOT ULCER 12/05/2017 HOMERO CARRILLO MD, Ot 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 12/05/2017 HOMERO CARRILLO MD, Ot L89.623 PRESSURE ULCER OF LEFT HEEL, STAGE 3 12/05/2017 HOMERO CARRILLO MD Ot 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 OTH PRT RIGHT FOOT 12/05/2017 HOMERO CARRILLO MD Ot B91 SEQUELAE OF POLIOMYELITIS 12/05/2017 HOMERO CARRILLO MD, Ot C44.219 BASAL CELL CARCINOMA SKIN/ LEFT EAR AND 12/05/2017 HOMERO CARRILLO MD, Ot 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 MELLITUS WITH FOOT ULCER 12/05/2017 HOMERO CARRILLO MD, Ot 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 12/05/2017 HOMERO CARRILLO MD, Ot L89.623 PRESSURE ULCER OF LEFT HEEL, STAGE 3 12/05/2017 HOMERO CARRILLO MD Ot 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 OTH PRT RIGHT FOOT 12/06/2017 HOMERO CARRILLO MD Ot B91 SEQUELAE OF POLIOMYELITIS 12/06/2017 HOMERO CARRILLO MD Ot 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 12/06/2017 HOMERO CARRILLO MD, Ot 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 MELLITUS WITH FOOT ULCER 12/06/2017 HOMERO CARRILLO MD Ot 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 12/06/2017 HOMERO CARRILLO MD, Ot L89.623 PRESSURE ULCER OF LEFT HEEL, STAGE 3 12/06/2017 HOMERO CARRILLO MD, Ot 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 OTH PRT RIGHT FOOT 12/24/2017 HOMERO CARRILLO MD, Ot B91 SEQUELAE OF POLIOMYELITIS 12/24/2017 HOMERO CARRILLO MD, Ot 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 MELLITUS WITH FOOT ULCER 12/24/2017 HOMERO CARRILLO MD, Ot 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 12/24/2017 HOMERO CARRILLO MD, Ot 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 OTH PRT RIGHT FOOT 12/26/2017 HOMERO CARRILLO MD Ot B91 SEQUELAE OF POLIOMYELITIS 12/26/2017 HOMERO CARRILLO MD Ot 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 MELLITUS WITH FOOT ULCER 12/26/2017 HOMERO CARRILLO MD Ot 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 12/26/2017 HOMERO CARRILLO MD Ot L03.031 CELLULITIS OF RIGHT TOE 12/26/2017 HOMERO CARRILLO MD Ot 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 OTH PRT RIGHT FOOT 12/27/2017 HOMERO CARRILLO MD Ot B91 SEQUELAE OF POLIOMYELITIS 12/27/2017 HOMERO CARRILLO MD Ot 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 MELLITUS WITH FOOT ULCER 12/27/2017 HOMERO CARRILLO MD Ot 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 12/27/2017 HOMERO CARRILLO MD, Ot 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 OTH PRT RIGHT FOOT 12/30/2017 HOMERO CARRILLO MD Ot B91 SEQUELAE OF POLIOMYELITIS 12/30/2017 HOMERO CARRILLO MD Ot 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 MELLITUS WITH FOOT ULCER 12/30/2017 HOMERO CARRILLO MD, Ot 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 12/30/2017 HOMERO CARRILLO MD Ot 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 OTH PRT RIGHT FOOT 01/01/2018 HOMERO CARRILLO MD Ot B91 SEQUELAE OF POLIOMYELITIS 01/01/2018 HOMERO CARRILLO MD Ot 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 MELLITUS WITH FOOT ULCER 01/01/2018 HOMERO CARRILLO MD Ot 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 01/01/2018 HOMERO CARRILLO MD, Ot 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 OTH PRT RIGHT FOOT 01/01/2018 HOMERO CARRILLO MD Ot B91 SEQUELAE OF POLIOMYELITIS 01/01/2018 HOMERO CARRILLO MD, Ot 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 MELLITUS WITH FOOT ULCER 01/01/2018 HOMERO CARRILLO MD, Ot 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 01/01/2018 HOMERO CARRILLO MD Ot L03.031 CELLULITIS OF RIGHT TOE 01/01/2018 HOMERO CARRILLO MD, Ot 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 OTH PRT RIGHT FOOT 01/01/2018 HOMERO CARRILLO MD Ot B91 SEQUELAE OF POLIOMYELITIS 01/01/2018 HOMERO CARRILLO MD Ot 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 MELLITUS WITH FOOT ULCER 01/01/2018 HOMERO CARRILLO MD Ot 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 01/01/2018 HOMERO CARRILLO MD Ot 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 OTH PRT RIGHT FOOT 01/01/2018 HOMERO CARRILLO MD Ot B91 SEQUELAE OF POLIOMYELITIS 01/01/2018 HOMERO CARRILLO MD Ot 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 MELLITUS WITH FOOT ULCER 01/01/2018 HOMERO CARRILLO MD Ot 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 01/01/2018 HOMERO CARRILLO MD Ot L97.514 NON-PRS CHRONIC ULCER OTH PRT RIGHT FOOT 01/06/2018 HOMERO CARRILLO MD Ot B91 SEQUELAE OF POLIOMYELITIS 01/06/2018 HOMERO CARRILLO MD Ot 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 MELLITUS WITH FOOT ULCER 01/06/2018 HOMERO CARRILLO MD Ot 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 01/06/2018 HOMERO CARRILLO MD, Ot 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 OTH PRT RIGHT FOOT 01/08/2018 HOMERO CARRILLO MD, Ot B91 SEQUELAE OF POLIOMYELITIS 01/08/2018 HOMERO CARRILLO MD, Ot 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 MELLITUS WITH FOOT ULCER 01/08/2018 HOMERO CARRILLO MD, Ot 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 01/08/2018 HOMERO CARRILLO MD, Ot 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 OTH PRT RIGHT FOOT 01/09/2018 HOMERO CARRILLO MD, Ot B91 SEQUELAE OF POLIOMYELITIS 01/09/2018 HOMERO CARRILLO MD, Ot 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 MELLITUS WITH FOOT ULCER 01/09/2018 HOMERO CARRILLO MD, Ot 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 01/09/2018 HOMERO CARRILLO MD, Ot 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 OTH PRT RIGHT FOOT 01/10/2018 HOMERO CARRILLO MD, Ot B91 SEQUELAE OF POLIOMYELITIS 01/10/2018 HOMERO CARRILLO MD, Ot C44.219 BASAL CELL CARCINOMA SKIN/ LEFT EAR AND 01/10/2018 HOMERO CARRILLO MD, Ot 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 MELLITUS WITH FOOT ULCER 01/10/2018 HOMERO CARRILLO MD, Ot 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 01/10/2018 HOMERO CARRILLO MD, Ot L89.623 PRESSURE ULCER OF LEFT HEEL, STAGE 3 01/10/2018 HOMERO CARRILLO MD, Ot 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 OTH PRT RIGHT FOOT 01/10/2018 HOMERO CARRILLO MD, Ot B91 SEQUELAE OF POLIOMYELITIS 01/10/2018 HOMERO CARRILLO MD, Ot C44.219 BASAL CELL CARCINOMA SKIN/ LEFT EAR AND 01/10/2018 HOMERO CARRILLO MD, Ot 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 MELLITUS WITH FOOT ULCER 01/10/2018 HOMERO CARRILLO MD, Ot 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 01/10/2018 HOMERO CARRILLO MD, Ot L89.623 PRESSURE ULCER OF LEFT HEEL, STAGE 3 01/10/2018 HOMERO CARRILLO MD, Ot 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 OTH PRT RIGHT FOOT 01/10/2018 HOMERO CARRILLO MD Ot B91 SEQUELAE OF POLIOMYELITIS 01/10/2018 HOMERO CARRILLO MD, Ot C44.219 BASAL CELL CARCINOMA SKIN/ LEFT EAR AND 01/10/2018 HOMERO CARRILLO MD Ot 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 MELLITUS WITH FOOT ULCER 01/10/2018 HOMERO CARRILLO MD Ot 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 01/10/2018 HOMERO CARRILLO MD, Ot L89.623 PRESSURE ULCER OF LEFT HEEL, STAGE 3 01/10/2018 HOMERO CARRILLO MD, Ot 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 OTH PRT RIGHT FOOT 01/10/2018 HOMERO CARRILLO MD, Ot B91 SEQUELAE OF POLIOMYELITIS 01/10/2018 HOMERO CARRILLO MD, Ot 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 01/10/2018 HOMERO CARRILLO MD, Ot 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 MELLITUS WITH FOOT ULCER 01/10/2018 HOMERO CARRILLO MD, Ot 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 01/10/2018 HOMERO CARRILLO MD, Ot L89.623 PRESSURE ULCER OF LEFT HEEL, STAGE 3 01/10/2018 HOMERO CARRILLO MD Ot 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 OTH PRT RIGHT FOOT 01/10/2018 HOMERO CARRILLO MD, Ot B91 SEQUELAE OF POLIOMYELITIS 01/10/2018 HOMERO CARRILLO MD Ot 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 MELLITUS WITH FOOT ULCER 01/10/2018 HOMERO CARRILLO MD, Ot 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 01/10/2018 HOMERO CARRILLO MD, Ot 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 OTH PRT RIGHT FOOT 01/10/2018 HOMERO CARRILLO MD Ot B91 SEQUELAE OF POLIOMYELITIS 01/10/2018 HOMERO CARRILLO MD Ot 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 MELLITUS WITH FOOT ULCER 01/10/2018 HOMERO CARRILLO MD, Ot 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 01/10/2018 HOEMRO CARRILLO MD Ot L03.031 CELLULITIS OF RIGHT TOE 01/10/2018 HOMERO CARRILLO MD, Ot 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 OTH PRT RIGHT FOOT 01/10/2018 HOMERO CARRILLO MD Ot B91 SEQUELAE OF POLIOMYELITIS 01/10/2018 HOMERO CARRILLO MD Ot 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 MELLITUS WITH FOOT ULCER 01/10/2018 HOMERO CARRILLO MD Ot 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 01/10/2018 HOMERO CARRILLO MD Ot 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 OTH PRT RIGHT FOOT 01/10/2018 HOMERO CARRILLO MD Ot B91 SEQUELAE OF POLIOMYELITIS 01/10/2018 HOMERO CARRILLO MD Ot 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 MELLITUS WITH FOOT ULCER 01/10/2018 HOMERO CARRILLO MD Ot 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 01/10/2018 HOMERO CARRILLO MD, Ot L97.514 NON-PRS CHRONIC ULCER OTH PRT RIGHT FOOT 01/10/2018 HOMERO CARRILLO MD Ot B91 SEQUELAE OF POLIOMYELITIS 01/10/2018 HOMERO CARRILLO MD Ot 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 MELLITUS WITH FOOT ULCER 01/10/2018 HOMERO CARRILLO MD Ot 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 01/10/2018 HOMERO CARRILLO MD Ot 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 OTH PRT RIGHT FOOT 01/10/2018 HOMERO CARRILLO MD Ot B91 SEQUELAE OF POLIOMYELITIS 01/10/2018 HOMERO CARRILLO MD Ot 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 MELLITUS WITH FOOT ULCER 01/10/2018 HOMERO CARRILLO MD Ot 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 01/10/2018 HOMERO CARRILLO MD Ot 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 OTH PRT RIGHT FOOT 01/10/2018 HOMERO CARRILLO MD Ot B91 SEQUELAE OF POLIOMYELITIS 01/10/2018 HOMERO CARRILLO MD Ot 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 MELLITUS WITH FOOT ULCER 01/10/2018 HOMERO CARRILLO MD Ot 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 01/10/2018 HOMERO CARRILLO MD Ot 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 OTH PRT RIGHT FOOT 01/10/2018 HOMERO CARRILLO MD Ot B91 SEQUELAE OF POLIOMYELITIS 01/10/2018 HOMERO CARRILLO MD, Ot 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 MELLITUS WITH FOOT ULCER 01/10/2018 HOMERO CARRILLO MD Ot 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 01/10/2018 HOMERO CARRILLO MD, Ot 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 OTH PRT RIGHT FOOT 01/15/2018 HOMERO CARRILLO MD Ot B91 SEQUELAE OF POLIOMYELITIS 01/15/2018 HOMERO CARRILLO MD, Ot 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 MELLITUS WITH FOOT ULCER 01/15/2018 HOMERO CARRILLO MD, Ot 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 01/15/2018 HOMERO CARRILLO MD, Ot 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 OTH PRT RIGHT FOOT 01/15/2018 HOMERO CARRILLO MD, Ot B91 SEQUELAE OF POLIOMYELITIS 01/15/2018 HOMERO CARRILLO MD, Ot 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 MELLITUS WITH FOOT ULCER 01/15/2018 HOMERO CARRILLO MD, Ot 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 01/15/2018 HOMERO CARRILLO MD, Ot 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 OTH PRT RIGHT FOOT 01/17/2018 PREET PASCUAL MD Ot D50.9 IRON DEFICIENCY ANEMIA, UNSPECIFIED 01/17/2018 PREET PASCUAL MD Ot D63.1 ANEMIA IN CHRONIC KIDNEY DISEASE 01/17/2018 PREET PASCUAL MD Ot N18.3 CHRONIC KIDNEY DISEASE, STAGE 3 (MODERAT 01/17/2018 PREET PASCUAL MD Ot D50.9 IRON DEFICIENCY ANEMIA, UNSPECIFIED 01/17/2018 DIANE PASCUAL MDINE Ot D63.1 ANEMIA IN CHRONIC KIDNEY DISEASE 01/17/2018 DIANE PASCUAL MDINE Ot N18.3 CHRONIC KIDNEY DISEASE, STAGE 3 (MODERAT 01/17/2018 DIANE PASCUAL MDINE Ot D50.9 IRON DEFICIENCY ANEMIA, UNSPECIFIED 01/17/2018 DIANE PASCUAL MDINE Ot D63.1 ANEMIA IN CHRONIC KIDNEY DISEASE 01/17/2018 DIANE PASCUAL MDINE Ot N18.3 CHRONIC KIDNEY DISEASE, STAGE 3 (MODERAT 01/17/2018 DIANE PASCUAL MDINE Ot D50.9 IRON DEFICIENCY ANEMIA, UNSPECIFIED 01/17/2018 PREET PASCUAL MD Ot D63.1 ANEMIA IN CHRONIC KIDNEY DISEASE 01/17/2018 PREET PASCUAL MD Ot N18.3 CHRONIC KIDNEY DISEASE, STAGE 3 (MODERAT 01/17/2018 PREET PASCUAL MD Ot B 91 SEQUELAE OF POLIOMYELITIS 01/17/2018 PREET PASCUAL MD Ot D50.9 IRON DEFICIENCY ANEMIA, UNSPECIFIED 01/17/2018 PREET PASCUAL MD Ot D63.1 ANEMIA IN CHRONIC KIDNEY DISEASE 01/17/2018 PREET PASCUAL MD Ot 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 MELLITUS WITH FOOT ULCER 01/17/2018 PREET PASCUAL MD Ot 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 01/17/2018 PREET PASCUAL MD Ot 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 OTH PRT RIGHT FOOT 01/17/2018 PREET PASCUAL MD, Ot N18.3 CHRONIC KIDNEY DISEASE, STAGE 3 (MODERAT 01/22/2018 HOMERO CARRILLO MD Ot B91 SEQUELAE OF POLIOMYELITIS 01/22/2018 HOMERO CARRILLO MD Ot 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 MELLITUS WITH FOOT ULCER 01/22/2018 HOMERO CARRILLO MD Ot 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 01/22/2018 HOMERO CARRILLO MD Ot 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 OTH PRT RIGHT FOOT 01/23/2018 HOMERO CARRILLO MD Ot B91 SEQUELAE OF POLIOMYELITIS 01/23/2018 HOMERO CARRILLO MD Ot 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 MELLITUS WITH FOOT ULCER 01/23/2018 HOMERO CARRILLO MD Ot 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 01/23/2018 HOMERO CARRILLO MD, Ot 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 OTH PRT RIGHT FOOT 01/27/2018 HOMERO CARRILLO MD Ot B91 SEQUELAE OF POLIOMYELITIS 01/27/2018 HOMERO CARRILLO MD Ot 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 MELLITUS WITH FOOT ULCER 01/27/2018 HOMERO CARRILLO MD Ot 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 01/27/2018 HOMERO CARRILLO MD Ot 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 OTH PRT RIGHT FOOT 01/28/2018 HOMERO CARRILLO MD Ot B91 SEQUELAE OF POLIOMYELITIS 01/28/2018 HOMERO CARRILLO MD Ot 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 MELLITUS WITH FOOT ULCER 01/28/2018 HOMERO CARRILLO MD Ot 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 01/28/2018 HOMERO CARRILLO MD Ot 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 OTH PRT RIGHT FOOT 02/04/[address] DRIVER Ot B 91 SEQUELAE OF POLIOMYELITIS 02/04/[address] DRIVER Ot 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 MELLITUS WITH FOOT ULCER 02/04/[address] DRIVER Ot 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 02/04/[address] DRIVER Ot 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 OTH PRT RIGHT FOOT 02/04/[address] DRIVER Ot B 91 SEQUELAE OF POLIOMYELITIS 02/04/[address] DRIVER Ot 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 MELLITUS WITH FOOT ULCER 02/04/[address] DRIVER Ot 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 02/04/[address] DRIVER Ot 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 OTH PRT RIGHT FOOT 02/04/[address] DRIVER Ot B 91 SEQUELAE OF POLIOMYELITIS 02/04/[address] DRIVER Ot 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 MELLITUS WITH FOOT ULCER 02/04/[address] DRIVER Ot 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 02/04/[address] DRIVER Ot 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 OTH PRT RIGHT FOOT 02/06/[address] DRIVER Ot B 91 SEQUELAE OF POLIOMYELITIS 02/06/[address] DRIVER Ot 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 MELLITUS WITH FOOT ULCER 02/06/[address] DRIVER Ot 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 02/06/[address] DRIVER Ot 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 OTH PRT RIGHT FOOT 02/10/2018 HOMERO CARRILLO MD Ot B91 SEQUELAE OF POLIOMYELITIS 02/10/2018 HOMERO CARRILLO MD Ot 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 MELLITUS WITH FOOT ULCER 02/10/2018 HOMERO CARRILLO MD Ot 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 02/10/2018 HOMERO CARRILLO MD Ot 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 OTH PRT RIGHT FOOT 02/14/2018 HOMERO CARRILLO MD Ot B91 SEQUELAE OF POLIOMYELITIS 02/14/2018 HOMERO CARRILLO MD Ot 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 MELLITUS WITH FOOT ULCER 02/14/2018 HOMERO CARRILLO MD Ot 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 02/14/2018 HOMERO CARRILLO MD Ot 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 OTH PRT RIGHT FOOT 02/15/[address] DRIVER Ot B 91 SEQUELAE OF POLIOMYELITIS 02/15/[address] DRIVER Ot 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 MELLITUS WITH FOOT ULCER 02/15/[address] DRIVER Ot 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 02/15/[address] DRIVER Ot 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 OTH PRT RIGHT FOOT 02/18/2018 HOMERO CARRILLO MD Ot B91 SEQUELAE OF POLIOMYELITIS 02/18/2018 HOMERO CARRILLO MD Ot 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 MELLITUS WITH FOOT ULCER 02/18/2018 HOMERO CARRILLO MD Ot 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 02/18/2018 HOMERO CARRILLO MD Ot 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 OTH PRT RIGHT FOOT 02/24/[address] DRIVER Ot B 91 SEQUELAE OF POLIOMYELITIS 02/24/[address] DRIVER Ot 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 00 PURE HYPERCHOLESTEROLEMIA, UNSPECIFIED 03/27/2018 MARTHA CAVAZOS MD, Ot G47. 30 SLEEP APNEA, UNSPECIFIED 03/27/2018 MARTHA CAVAZOS MD Ot I10 ESSENTIAL (PRIMARY) HYPERTENSION 03/27/2018 MARTHA CAVAZOS MD, Ot I25. 10 ATHSCL HEART DISEASE OF [place] CORONARY 03/27/2018 MARTHA CAVAZOS MD Ot I48. 91 UNSPECIFIED ATRIAL FIBRILLATION 03/27/2018 MARTHA CAVAZOS MD, Ot J18. 1 LOBAR PNEUMONIA, UNSPECIFIED ORGANISM 03/27/2018 MARTHA CAVAZOS MD, Ot J44. 0 CHRONIC OBSTRUCTIVE PULMON DISEASE W ACU 03/27/2018 MARTHA CAVAZOS MD Ot K21. 9 GASTRO-ESOPHAGEAL REFLUX DISEASE WITHOUT 03/27/2018 MARTHA CAVAZOS MD Ot M54. 2 CERVICALGIA 03/27/2018 MARTHA CAVAZOS MD, Ot N40. 0 BENIGN PROSTATIC HYPERPLASIA WITHOUT LOW 03/27/2018 MARTHA CAVAZOS MD Ot Z66 DO NOT RESUSCITATE 03/27/2018 MARTHA CAVAZOS MD, Ot Z79. 4 [facility] (CURRENT) USE OF INSULIN 03/27/2018 MARTHA CAVAZOS MD, Ot Z86. 12 PERSONAL HISTORY OF POLIOMYELITIS 03/31/2018 MARTHA CAVAZOS MD Ot A41. 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 00 PURE HYPERCHOLESTEROLEMIA, UNSPECIFIED 03/31/2018 MARTHA CAVAZOS MD, Ot G47. 30 SLEEP APNEA, UNSPECIFIED 03/31/2018 MARTHA CAVAZOS MD Ot I10 ESSENTIAL (PRIMARY) HYPERTENSION 03/31/2018 MARTHA CAVAZOS MD Ot I25. 10 ATHSCL HEART DISEASE OF [place] CORONARY 03/31/2018 MARTHA CAVAZOS MD Ot I48. 91 UNSPECIFIED ATRIAL FIBRILLATION 03/31/2018 MARTHA CAVAZOS MD Ot J18. 1 LOBAR PNEUMONIA, UNSPECIFIED ORGANISM 03/31/2018 MARTHA CAVAZOS MD, Ot J44. 0 CHRONIC OBSTRUCTIVE PULMON DISEASE W ACU 03/31/2018 MARTHA CAVAZOS MD Ot K21. 9 GASTRO-ESOPHAGEAL REFLUX DISEASE WITHOUT 03/31/2018 MARTHA CAVAZOS MD Ot M54. 2 CERVICALGIA 03/31/2018 MARTHA CAVAZOS MD Ot N40. 0 BENIGN PROSTATIC HYPERPLASIA WITHOUT LOW 03/31/2018 MARTHA CAVAZOS MD Ot Z66 DO NOT RESUSCITATE 03/31/2018 MARTHA CAVAZOS MD Ot Z79. 4 NURSE LICENSED PRACTICAL (CURRENT) USE OF INSULIN 03/31/2018 MARTHA CAVAZOS MD Ot Z86. 12 PERSONAL HISTORY OF POLIOMYELITIS 03/31/2018 MARTHA CAVAZOS MD Ot A41. 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 00 PURE HYPERCHOLESTEROLEMIA, UNSPECIFIED 03/31/2018 MARTHA CAVAZOS MD, Ot G47. 30 SLEEP APNEA, UNSPECIFIED 03/31/2018 MARTHA CAVAZOS MD Ot I10 ESSENTIAL (PRIMARY) HYPERTENSION 03/31/2018 MARTHA CAVAZOS MD Ot I25. 10 ATHSCL HEART DISEASE OF [place] CORONARY 03/31/2018 MARTHA CAVAZOS MD Ot I48. 91 UNSPECIFIED ATRIAL FIBRILLATION 03/31/2018 MARTHA CAVAZOS MD Ot J18. 1 LOBAR PNEUMONIA, UNSPECIFIED ORGANISM 03/31/2018 MARTHA CAVAZOS MD Ot J44. 0 CHRONIC OBSTRUCTIVE PULMON DISEASE W ACU 03/31/2018 MARTHA CAVAZOS MD Ot K21. 9 GASTRO-ESOPHAGEAL REFLUX DISEASE WITHOUT 03/31/2018 MARTHA CAVAZOS MD Ot M54. 2 CERVICALGIA 03/31/2018 MARTHA CAVAZOS MD Ot N40. 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 4 NURSE LICENSED PRACTICAL (CURRENT) USE OF INSULIN 03/31/2018 MARTHA CAVAZOS MD Ot Z86. 12 PERSONAL HISTORY OF POLIOMYELITIS 04/03/2018 RICK PINEDA MD Ot E11.59 TYPE 2 DIABETES MELLITUS WITH OTH CIRCUL 04/03/2018 RICK PINEDA MD Ot E78.00 PURE HYPERCHOLESTEROLEMIA, UNSPECIFIED 04/03/2018 RICK PINEDA MD Ot F32.9 MAJOR DEPRESSIVE DISORDER, SINGLE EPISOD 04/03/2018 RICK PINEDA MD Ot G47.30 SLEEP APNEA, UNSPECIFIED 04/03/2018 RICK PINEDA MD Ot I10 ESSENTIAL (PRIMARY) HYPERTENSION 04/03/2018 RICK PINEDA MD Ot I25.10 ATHSCL HEART DISEASE OF [place] CORONARY 04/03/2018 RICK PINEDA MD Ot I48.91 UNSPECIFIED ATRIAL FIBRILLATION 04/03/2018 RICK PINEDA MD Ot I73.9 PERIPHERAL VASCULAR DISEASE, UNSPECIFIED 04/03/2018 RICK PINEDA MD Ot J18.9 PNEUMONIA, UNSPECIFIED ORGANISM 04/03/2018 RICK PINEDA MD Ot J44.9 CHRONIC OBSTRUCTIVE PULMONARY DISEASE, U 04/03/2018 RICK PINEDA MD Ot K21.9 GASTRO-ESOPHAGEAL REFLUX DISEASE WITHOUT 04/03/2018 RICK PINEDA MD Ot N17.9 ACUTE KIDNEY FAILURE, UNSPECIFIED 04/03/2018 RICK PINEDA MD Ot R06.00 DYSPNEA, UNSPECIFIED 04/03/2018 RICK PINEDA MD Ot R07.81 PLEURODYNIA 04/03/2018 RICK PINEDA MD Ot R53.83 OTHER FATIGUE 04/03/2018 RICK PINEDA MD Ot Z79.4 [facility] (CURRENT) USE OF INSULIN 04/03/2018 RICK PINEDA MD Ot Z79.51 [facility] (CURRENT) USE OF INHALED STERO 04/03/2018 RICK PINEDA MD Ot Z79.82 [facility] (CURRENT) USE OF ASPIRIN 04/03/2018 RICK PINEDA MD Ot Z86.12 PERSONAL HISTORY OF POLIOMYELITIS 04/03/2018 RICK PINEDA MD Ot Z87.448 PERSONAL HISTORY OF OTHER DISEASES OF UR 04/10/2018 ALICIA SOTELO MD Ot E11.51 TYPE 2 DIABETES W DIABETIC PERIPHERAL AN 04/10/2018 ALICIA SOTELO MD Ot E78.00 PURE HYPERCHOLESTEROLEMIA, UNSPECIFIED 04/10/2018 ALICIA SOTELO MD Ot F32 .9 MAJOR DEPRESSIVE DISORDER, SINGLE EPISOD 04/10/2018 ALICIA SOTELO MD Ot G47.30 SLEEP APNEA, UNSPECIFIED 04/10/2018 ALICIA SOTELO MD Ot I10 ESSENTIAL (PRIMARY) HYPERTENSION 04/10/2018 ALICIA SOTELO MD Ot I25.10 ATHSCL HEART DISEASE OF [place] CORONARY 04/10/2018 ALICIA SOTELO MD Ot I48.91 UNSPECIFIED ATRIAL FIBRILLATION 04/10/2018 ALICIA SOTELO MD Ot I73 .9 PERIPHERAL VASCULAR DISEASE, UNSPECIFIED 04/10/2018 ALICIA SOTELO MD, Ot J44 .9 CHRONIC OBSTRUCTIVE PULMONARY DISEASE, U 04/10/2018 ALICIA SOTELO MD Ot K21 .9 GASTRO-ESOPHAGEAL REFLUX DISEASE WITHOUT 04/10/2018 ALICIA SOTELO MD Ot R00 .1 BRADYCARDIA, UNSPECIFIED 04/10/2018 ALICIA SOTELO MD Ot Z79 .4 [facility] (CURRENT) USE OF INSULIN 04/10/2018 ALICIA SOTELO MD Ot Z79.51 NURSE LICENSED PRACTICAL (CURRENT) USE OF INHALED STERO 04/10/2018 ALICIA SOTELO MD Ot Z79.82 NURSE LICENSED PRACTICAL (CURRENT) USE OF ASPIRIN 04/10/2018 ALICIA SOTELO MD Ot Z86.12 PERSONAL HISTORY OF POLIOMYELITIS 04/10/2018 ALICIA SOTELO MD, Ot Z87.01 PERSONAL HISTORY OF PNEUMONIA (RECURRENT 04/10/2018 ALICIA SOTELO MD, Ot Z87.448 PERSONAL HISTORY OF OTHER DISEASES OF UR 04/14/2018 ALICIA SOTELO MD, Ot E11.51 TYPE 2 DIABETES W DIABETIC PERIPHERAL AN 04/14/2018 ALICIA SOTELO MD, Ot E78.00 PURE HYPERCHOLESTEROLEMIA, UNSPECIFIED 04/14/2018 ALICIA SOTELO MD, Ot F32 .9 MAJOR DEPRESSIVE DISORDER, SINGLE EPISOD 04/14/2018 ALICIA SOTELO MD, Ot G47.30 SLEEP APNEA, UNSPECIFIED 04/14/2018 ALICIA SOTELO MD, Ot I10 ESSENTIAL (PRIMARY) HYPERTENSION 04/14/2018 ALICIA SOTELO MD, Ot I25.10 ATHSCL HEART DISEASE OF [place] CORONARY 04/14/2018 ALICIA SOTELO MD, Ot I48.91 UNSPECIFIED ATRIAL FIBRILLATION 04/14/2018 ALICIA SOTELO MD, Ot I73 .9 PERIPHERAL VASCULAR DISEASE, UNSPECIFIED 04/14/2018 ALICIA SOTELO MD, Ot J44 .9 CHRONIC OBSTRUCTIVE PULMONARY DISEASE, U 04/14/2018 ALICIA SOTELO MD, Ot K21 .9 GASTRO-ESOPHAGEAL REFLUX DISEASE WITHOUT 04/14/2018 ALICIA SOTELO MD, Ot R00 .1 BRADYCARDIA, UNSPECIFIED 04/14/2018 ALICIA SOTELO MD, Ot Z79 .4 [facility] (CURRENT) USE OF INSULIN 04/14/2018 ALICIA SOTELO MD, Ot Z79.51 NURSE LICENSED PRACTICAL (CURRENT) USE OF INHALED STERO 04/14/2018 ALICIA SOTELO MD, Ot Z79.82 NURSE LICENSED PRACTICAL (CURRENT) USE OF ASPIRIN 04/14/2018 ALICIA SOTELO MD, Ot Z86.12 PERSONAL HISTORY OF POLIOMYELITIS 04/14/2018 ALICIA SOTELO MD, Ot Z87.01 PERSONAL HISTORY OF PNEUMONIA (RECURRENT 04/14/2018 ALICIA SOTELO MD, Ot Z87.448 PERSONAL HISTORY OF OTHER DISEASES OF UR 07/28/2018 WESLEY BRO APRN Ot B 91 SEQUELAE OF POLIOMYELITIS 07/28/2018 WESLEY BRO APRN Ot 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 MELLITUS WITH FOOT ULCER 07/28/2018 WESLEY BRO APRN Ot 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 07/28/[address] DRIVER Ot 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 OTH PRT RIGHT FOOT 07/30/[address]IVER Ot B 91 SEQUELAE OF POLIOMYELITIS 07/30/[address] DRIVER Ot 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 MELLITUS WITH FOOT ULCER 07/30/[address] DRIVER Ot 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 07/30/[address] DRIVER Ot 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 OTH PRT RIGHT FOOT 07/31/[address] DRIVER Ot B 91 SEQUELAE OF POLIOMYELITIS 07/31/[address] DRIVER Ot 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 MELLITUS WITH FOOT ULCER 07/31/[address] DRIVER Ot 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 07/31/[address] DRIVER Ot 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 OTH PRT RIGHT FOOT 08/04/[address]IVER Ot B 91 SEQUELAE OF POLIOMYELITIS 08/04/[address] DRIVER Ot 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 MELLITUS WITH FOOT ULCER 08/04/[address] DRIVER Ot 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 08/04/[address] DRIVER Ot 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 OTH PRT RIGHT FOOT 08/11/[address] DRIVER Ot B 91 SEQUELAE OF POLIOMYELITIS 08/11/[address] DRIVER Ot 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 MELLITUS WITH FOOT ULCER 08/11/[address] DRIVER Ot 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 08/11/[address] DRIVER Ot 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 OTH PRT RIGHT FOOT 08/20/[address] DRIVER Ot B 91 SEQUELAE OF POLIOMYELITIS 08/20/[address] DRIVER Ot 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 MELLITUS WITH FOOT ULCER 08/20/[address] DRIVER Ot 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 08/20/[address] DRIVER Ot 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 OTH PRT RIGHT FOOT 08/28/[address]IVER Ot B 91 SEQUELAE OF POLIOMYELITIS 08/28/[address] DRIVER Ot 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 MELLITUS WITH FOOT ULCER 08/28/[address] DRIVER Ot 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 08/28/[address] DRIVER Ot 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 OTH PRT RIGHT FOOT 09/04/[address]IVER Ot B 91 SEQUELAE OF POLIOMYELITIS 09/04/[address] DRIVER Ot 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 MELLITUS WITH FOOT ULCER 09/04/[address]IVER Ot 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 09/04/[address] DRIVER Ot 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 OTH PRT RIGHT FOOT 09/04/[address] DRIVER Ot B 91 SEQUELAE OF POLIOMYELITIS 09/04/[address] DRIVER Ot 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 MELLITUS WITH FOOT ULCER 09/04/[address] DRIVER Ot 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 09/04/[address] DRIVER Ot 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 OTH PRT RIGHT FOOT 09/25/[address] DRIVER Ot B 91 SEQUELAE OF POLIOMYELITIS 09/25/[address] DRIVER Ot 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 MELLITUS WITH FOOT ULCER 09/25/[address] DRIVER Ot 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 09/25/[address] DRIVER Ot 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 OTH PRT RIGHT FOOT 10/03/[address] Ot B 91 SEQUELAE OF POLIOMYELITIS 10/03/[address] DRIVER Ot 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 MELLITUS WITH FOOT ULCER 10/03/[address] DRIVER Ot 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 10/03/[address] DRIVER Ot 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 OTH PRT RIGHT FOOT 02/16/2019 ISAAC MAR MD Ot E78.5 HYPERLIPIDEMIA, UNSPECIFIED 02/16/2019 ISAAC MAR MD Ot R11.2 NAUSEA WITH VOMITING, UNSPECIFIED 02/16/2019 HOMERO CARRILLO MD Ot B91 SEQUELAE OF POLIOMYELITIS 02/16/2019 HOMERO CARRILLO MD, Ot C44.219 BASAL CELL CARCINOMA SKIN/ LEFT EAR AND 02/16/2019 HOMERO CARRILLO MD, Ot 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 MELLITUS WITH FOOT ULCER 02/16/2019 HOMERO CARRILLO MD Ot 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 02/16/2019 HOMERO CARRILLO MD, Ot L89.623 PRESSURE ULCER OF LEFT HEEL, STAGE 3 02/16/2019 HOMERO CARRILLO MD, Ot 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 OTH PRT RIGHT FOOT 02/16/2019 HOMERO CARRLILO MD, Ot 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 MELLITUS WITH FOOT ULCER 02/16/2019 HOMERO CARRILLO MD Ot 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 OTH PRT RIGHT FOOT 02/16/2019 HOMERO CARRILLO MD Ot B91 SEQUELAE OF POLIOMYELITIS 02/16/2019 HOMERO CARRILLO MD, Ot 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 02/16/2019 HOMERO CARRILLO MD, Ot 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 MELLITUS WITH FOOT ULCER 02/16/2019 HOMERO CARRILLO MD Ot 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 02/16/2019 HOMERO CARRILLO MD Ot L89.623 PRESSURE ULCER OF LEFT HEEL, STAGE 3 02/16/2019 HOMERO CARRILLO MD Ot 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 OTH PRT RIGHT FOOT 02/16/2019 HOMERO CARRILLO MD Ot B91 SEQUELAE OF POLIOMYELITIS 02/16/2019 HOMERO CARRILLO MD, Ot C44.219 BASAL CELL CARCINOMA SKIN/ LEFT EAR AND 02/16/2019 HOMERO CARRILLO MD Ot 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 MELLITUS WITH FOOT ULCER 02/16/2019 HOMERO CARRILLO MD Ot 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 02/16/2019 GERARDO MD, HOMERO G Ot L89.623 PRESSURE ULCER OF LEFT HEEL, STAGE 3 02/16/2019 HOMERO CARRILLO MD, Ot 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 OTH PRT RIGHT FOOT 02/16/2019 HOMERO CARRILLO MD, Ot B91 SEQUELAE OF POLIOMYELITIS 02/16/2019 HOMERO CARRILLO MD, Ot C44.219 BASAL CELL CARCINOMA SKIN/ LEFT EAR AND 02/16/2019 HOMERO CARRILLO MD, Ot 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 MELLITUS WITH FOOT ULCER 02/16/2019 HOMERO CARRILLO MD, Ot 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 02/16/2019 HOMERO CARRILLO MD, Ot L89.623 PRESSURE ULCER OF LEFT HEEL, STAGE 3 02/16/2019 HOMERO CARRILLO MD, Ot 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 OTH PRT RIGHT FOOT 02/16/2019 HOMERO CARRILLO MD, Ot B91 SEQUELAE OF POLIOMYELITIS 02/16/2019 HOMERO CARRILLO MD, Ot C44.219 BASAL CELL CARCINOMA SKIN/ LEFT EAR AND 02/16/2019 HOMERO CARRILLO MD, Ot 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 MELLITUS WITH FOOT ULCER 02/16/2019 HOMERO CARRILLO MD, Ot 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 02/16/2019 HOMERO CARRILLO MD, Ot L89.623 PRESSURE ULCER OF LEFT HEEL, STAGE 3 02/16/2019 HOMERO CARRILLO MD Ot 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 OTH PRT RIGHT FOOT 02/16/2019 HOMERO CARRILLO MD Ot B91 SEQUELAE OF POLIOMYELITIS 02/16/2019 HOMERO CARRILLO MD, Ot 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 02/16/2019 HOMERO CARRILLO MD, Ot 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 MELLITUS WITH FOOT ULCER 02/16/2019 HOMERO CARRILLO MD Ot 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 02/16/2019 HOMERO CARRILLO MD, Ot L89.623 PRESSURE ULCER OF LEFT HEEL, STAGE 3 02/16/2019 HOMERO CARRILLO MD, Ot 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 OTH PRT RIGHT FOOT 02/16/2019 HOMERO CARRILLO MD Ot B91 SEQUELAE OF POLIOMYELITIS 02/16/2019 HOMERO CARRILLO MD Ot 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 MELLITUS WITH FOOT ULCER 02/16/2019 HOMERO CARRILLO MD Ot 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 02/16/2019 HOMERO CARRILLO MD, Ot 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 OTH PRT RIGHT FOOT 02/16/2019 HOMERO CARRILLO MD Ot B91 SEQUELAE OF POLIOMYELITIS 02/16/2019 HOMERO CARRILLO MD Ot 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 MELLITUS WITH FOOT ULCER 02/16/2019 HOMERO CARRILLO MD, Ot 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 02/16/2019 HOMERO CARRILLO MD Ot L03.031 CELLULITIS OF RIGHT TOE 02/16/2019 HOMERO CARRILLO MD, Ot 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 OTH PRT RIGHT FOOT 02/16/2019 HOMERO CARRILLO MD, Ot B91 SEQUELAE OF POLIOMYELITIS 02/16/2019 HOMERO CARRILLO MD, Ot 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 MELLITUS WITH FOOT ULCER 02/16/2019 HOMERO CARRILLO MD, Ot 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 02/16/2019 HOMERO CARRILLO MD, Ot 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 OTH PRT RIGHT FOOT 02/16/2019 HOMERO CARRILLO MD, Ot B91 SEQUELAE OF POLIOMYELITIS 02/16/2019 HOMERO CARRILLO MD, Ot 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 MELLITUS WITH FOOT ULCER 02/16/2019 HOMERO CARRILLO MD Ot 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 02/16/2019 HOMERO CARRILLO MD, Ot L97.514 NON-PRS CHRONIC ULCER OTH PRT RIGHT FOOT 02/16/2019 HOMERO CARRILLO MD Ot B91 SEQUELAE OF POLIOMYELITIS 02/16/2019 HOMERO CARRILLO MD Ot 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 MELLITUS WITH FOOT ULCER 02/16/2019 HOMERO CARRILLO MD Ot 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 02/16/2019 HOMERO CARRILLO MD, Ot 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 OTH PRT RIGHT FOOT 02/16/2019 HOMERO CARRILLO MD Ot B91 SEQUELAE OF POLIOMYELITIS 02/16/2019 HOMERO CARRILLO MD Ot 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 MELLITUS WITH FOOT ULCER 02/16/2019 HOMERO CARRILLO MD Ot 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 02/16/2019 HOMERO CARRILLO MD Ot 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 OTH PRT RIGHT FOOT 02/16/2019 HOMERO CARRILLO MD Ot B91 SEQUELAE OF POLIOMYELITIS 02/16/2019 HOMERO CARRILLO MD Ot 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 MELLITUS WITH FOOT ULCER 02/16/2019 HOMERO CARRILLO MD Ot 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 02/16/2019 HOMERO CARRILLO MD Ot 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 OTH PRT RIGHT FOOT 02/16/2019 HOMERO CARRILLO MD Ot B91 SEQUELAE OF POLIOMYELITIS 02/16/2019 HOMERO CARRILLO MD, Ot 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 MELLITUS WITH FOOT ULCER 02/16/2019 HOMERO CARRILLO MD Ot 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 02/16/2019 HOMERO CARRILLO MD Ot 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 OTH PRT RIGHT FOOT 02/16/[address] DRIVER Ot B 91 SEQUELAE OF POLIOMYELITIS 02/16/[address] DRIVER Ot 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 MELLITUS WITH FOOT ULCER 02/16/[address] DRIVER Ot 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 02/16/[address] DRIVER Ot 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 OTH PRT RIGHT FOOT 02/16/2019 HOMERO CARRILLO MD Ot B91 SEQUELAE OF POLIOMYELITIS 02/16/2019 HOMERO CARRILLO MD Ot 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 MELLITUS WITH FOOT ULCER 02/16/2019 HOMERO CARRILLO MD Ot 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 02/16/2019 HOMERO CARRILLO MD Ot 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 OTH PRT RIGHT FOOT 02/16/2019 HOMERO CARRILLO MD Ot B91 SEQUELAE OF POLIOMYELITIS 02/16/2019 HOMERO CARRILLO MD Ot 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 MELLITUS WITH FOOT ULCER 02/16/2019 HOMERO CARRILLO MD Ot 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 02/16/2019 GERARDO GARVIN, HOMERO Almonte Ot 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 OTH PRT RIGHT FOOT 02/16/[address] DRIVER Ot B 91 SEQUELAE OF POLIOMYELITIS 02/16/[address] DRIVER Ot 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 MELLITUS WITH FOOT ULCER 02/16/[address] DRIVER Ot 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 02/16/[address] DRIVER Ot 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 OTH PRT RIGHT FOOT 02/16/[address] DRIVER Ot B 91 SEQUELAE OF POLIOMYELITIS 02/16/[address] DRIVER Ot 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 MELLITUS WITH FOOT ULCER 02/16/[address] DRIVER Ot 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 02/16/[address] DRIVER Ot 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 OTH PRT RIGHT FOOT 02/16/[address] DRIVER Ot B 91 SEQUELAE OF POLIOMYELITIS 02/16/[address] DRIVER Ot 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 MELLITUS WITH FOOT ULCER 02/16/[address] DRIVER Ot 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 02/16/[address] DRIVER Ot 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 OTH PRT RIGHT FOOT 02/16/[address] DRIVER Ot B 91 SEQUELAE OF POLIOMYELITIS 02/16/[address] DRIVER Ot 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 MELLITUS WITH FOOT ULCER 02/16/[address] DRIVER Ot 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 02/16/[address] DRIVER Ot 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 OTH PRT RIGHT FOOT 02/16/[address] DRIVER Ot B 91 SEQUELAE OF POLIOMYELITIS 02/16/[address] DRIVER Ot 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 MELLITUS WITH FOOT ULCER 02/16/[address] DRIVER Ot 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 02/16/2019 DIEUDONNE, [address] R [address] DRIVER Ot 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 OTH PRT RIGHT FOOT 02/23/[address] DRIVER Ot 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 MELLITUS WITH FOOT ULCER 02/23/[address] DRIVER Ot 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 02/23/[address] DRIVER Ot 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 OTH PRT RIGHT FOOT 03/13/[address] DRIVER Ot 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 MELLITUS WITH FOOT ULCER 03/13/[address] DRIVER Ot 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 03/13/[address] DRIVER Ot 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 OTH PRT RIGHT FOOT 03/13/[address] DRIVER Ot M79.89 OTHER SPECIFIED SOFT TISSUE DISORDERS 03/16/[address] DRIVER Ot E11.52 TYPE 2 DIABETES W DIABETIC PERIPHERAL AN 03/16/[address] DRIVER Ot 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 MELLITUS WITH FOOT ULCER 03/16/[address] DRIVER Ot 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 03/16/[address] DRIVER Ot 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 OTH PRT RIGHT FOOT 03/18/[address] DRIVER Ot 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 MELLITUS WITH FOOT ULCER 03/18/[address] DRIVER Ot 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 03/18/[address] DRIVER Ot 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 OTH PRT RIGHT FOOT 03/18/[address] DRIVER Ot M79.89 OTHER SPECIFIED SOFT TISSUE DISORDERS 03/19/2019 HOMERO CARRILLO MD Ot B91 SEQUELAE OF POLIOMYELITIS 03/19/2019 HOMERO CARRILLO MD Ot C44.219 BASAL CELL CARCINOMA SKIN/ LEFT EAR AND 03/19/2019 HOMERO CARRILLO MD Ot 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 MELLITUS WITH FOOT ULCER 03/19/2019 HOMERO CARRILLO MD Ot 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 03/19/2019 HOMERO CARRILLO MD Ot L89.623 PRESSURE ULCER OF LEFT HEEL, STAGE 3 03/19/2019 HOMERO CARRILLO MD, Ot 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 OTH PRT RIGHT FOOT 03/19/2019 HOMERO CARRILLO MD, Ot B91 SEQUELAE OF POLIOMYELITIS 03/19/2019 HOMERO CARRILLO MD, Ot C44.219 BASAL CELL CARCINOMA SKIN/ LEFT EAR AND 03/19/2019 HOMERO CARRILLO MD Ot 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 MELLITUS WITH FOOT ULCER 03/19/2019 HOMERO CARRILLO MD Ot 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 03/19/2019 HOMERO CARRILLO MD, Ot L89.623 PRESSURE ULCER OF LEFT HEEL, STAGE 3 03/19/2019 HOMERO CARRILLO MD, Ot 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 OTH PRT RIGHT FOOT 03/19/2019 HOMERO CARRILLO MD, Ot B91 SEQUELAE OF POLIOMYELITIS 03/19/2019 HOMERO CARRILLO MD, Ot C44.219 BASAL CELL CARCINOMA SKIN/ LEFT EAR AND 03/19/2019 HOMERO CARRILLO MD, Ot 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 MELLITUS WITH FOOT ULCER 03/19/2019 HOMERO CARRILLO MD Ot 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 03/19/2019 HOMERO CARRILLO MD, Ot L89.623 PRESSURE ULCER OF LEFT HEEL, STAGE 3 03/19/2019 HOMERO CARRILLO MD Ot 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 OTH PRT RIGHT FOOT 03/19/2019 HOMERO CARRILLO MD Ot B91 SEQUELAE OF POLIOMYELITIS 03/19/2019 HOMERO CARRILLO MD Ot 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 03/19/2019 HOMERO CARRILLO MD Ot 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 MELLITUS WITH FOOT ULCER 03/19/2019 HOMERO CARRILLO MD Ot 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 03/19/2019 HOMERO CARRILLO MD Ot L89.623 PRESSURE ULCER OF LEFT HEEL, STAGE 3 03/19/2019 HOMERO CARRILLO MD Ot 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 OTH PRT RIGHT FOOT 03/19/2019 HOMERO CARRILLO MD Ot B91 SEQUELAE OF POLIOMYELITIS 03/19/2019 HOMERO CARRILLO MD Ot 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 MELLITUS WITH FOOT ULCER 03/19/2019 HOMERO CARRILLO MD Ot 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 03/19/2019 HOMERO CARRILLO MD Ot 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 OTH PRT RIGHT FOOT 03/19/2019 HOMERO CARRILLO MD Ot B91 SEQUELAE OF POLIOMYELITIS 03/19/2019 HOMERO CARRILLO MD Ot 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 MELLITUS WITH FOOT ULCER 03/19/2019 HOMERO CARRILLO MD Ot 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 03/19/2019 HOMERO CARRILLO MD Ot L03.031 CELLULITIS OF RIGHT TOE 03/19/2019 HOMERO CARRILLO MD, Ot 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 OTH PRT RIGHT FOOT 03/19/2019 HOMERO CARRILLO MD, Ot B91 SEQUELAE OF POLIOMYELITIS 03/19/2019 HOMERO CARRILLO MD, Ot 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 MELLITUS WITH FOOT ULCER 03/19/2019 HOMERO CARRILLO MD, Ot 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 03/19/2019 HOMERO CARRILLO MD, Ot 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 OTH PRT RIGHT FOOT 03/19/2019 HOMERO CARRILLO MD Ot B91 SEQUELAE OF POLIOMYELITIS 03/19/2019 HOMERO CARRILLO MD, Ot 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 MELLITUS WITH FOOT ULCER 03/19/2019 HOMERO CARRILLO MD Ot 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 03/19/2019 HOMERO CARRILLO MD Ot L97.514 NON-PRS CHRONIC ULCER OTH PRT RIGHT FOOT 03/19/2019 HOMERO CARRILLO MD Ot B91 SEQUELAE OF POLIOMYELITIS 03/19/2019 HOMERO CARRILLO MD Ot 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 MELLITUS WITH FOOT ULCER 03/19/2019 HOMERO CARRILLO MD Ot 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 03/19/2019 HOMERO CARRILLO MD Ot 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 OTH PRT RIGHT FOOT 03/19/2019 HOMERO CARRILLO MD Ot B91 SEQUELAE OF POLIOMYELITIS 03/19/2019 HOMERO CARRILLO MD Ot 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 MELLITUS WITH FOOT ULCER 03/19/2019 HOMERO CARRILLO MD Ot 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 03/19/2019 HOMREO CARRILLO MD Ot 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 OTH PRT RIGHT FOOT 03/19/2019 HOMERO CARRILLO MD Ot B91 SEQUELAE OF POLIOMYELITIS 03/19/2019 HOMERO CARRILLO MD Ot 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 MELLITUS WITH FOOT ULCER 03/19/2019 HOMERO CARRILLO MD Ot 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 03/19/2019 HOMERO CARRILLO MD Ot 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 OTH PRT RIGHT FOOT 03/19/2019 HOMERO CARRILLO MD Ot B91 SEQUELAE OF POLIOMYELITIS 03/19/2019 HOMERO CARRILLO MD, Ot 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 MELLITUS WITH FOOT ULCER 03/19/2019 HOMERO CARRILLO MD Ot 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 03/19/2019 HOMERO CARRILLO MD Ot 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 OTH PRT RIGHT FOOT 03/19/[address] DRIVER Ot B 91 SEQUELAE OF POLIOMYELITIS 03/19/[address] DRIVER Ot 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 MELLITUS WITH FOOT ULCER 03/19/[address] DRIVER Ot 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 03/19/[address] DRIVER Ot 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 OTH PRT RIGHT FOOT 03/19/2019 HOMERO CARRILLO MD Ot B91 SEQUELAE OF POLIOMYELITIS 03/19/2019 HOMERO CARRILLO MD Ot 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 MELLITUS WITH FOOT ULCER 03/19/2019 HOMERO CARRILLO MD Ot 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 03/19/2019 HOMERO CARRILLO MD Ot 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 OTH PRT RIGHT FOOT 03/19/2019 HOMERO CARRILLO MD Ot B91 SEQUELAE OF POLIOMYELITIS 03/19/2019 HOMERO CARRILLO MD Ot 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 MELLITUS WITH FOOT ULCER 03/19/2019 HOMERO CARRILLO MD Ot 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 03/19/2019 GERARDO GARVIN, HOMERO Almonte Ot 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 OTH PRT RIGHT FOOT 03/19/[address] DRIVER Ot B 91 SEQUELAE OF POLIOMYELITIS 03/19/[address] DRIVER Ot 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 MELLITUS WITH FOOT ULCER 03/19/[address] DRIVER Ot 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 03/19/[address] DRIVER Ot 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 OTH PRT RIGHT FOOT 03/19/[address] DRIVER Ot B 91 SEQUELAE OF POLIOMYELITIS 03/19/[address] DRIVER Ot 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 MELLITUS WITH FOOT ULCER 03/19/[address] DRIVER Ot 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 03/19/[address] DRIVER Ot 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 OTH PRT RIGHT FOOT 03/19/[address] DRIVER Ot B 91 SEQUELAE OF POLIOMYELITIS 03/19/[address] DRIVER Ot 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 MELLITUS WITH FOOT ULCER 03/19/[address] DRIVER Ot 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 03/19/[address] DRIVER Ot 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 OTH PRT RIGHT FOOT 03/19/[address] DRIVER Ot B 91 SEQUELAE OF POLIOMYELITIS 03/19/[address] DRIVER Ot 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 MELLITUS WITH FOOT ULCER 03/19/[address] DRIVER Ot 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 03/19/[address] DRIVER Ot 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 OTH PRT RIGHT FOOT 03/19/[address] DRIVER Ot B 91 SEQUELAE OF POLIOMYELITIS 03/19/[address] DRIVER Ot 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 MELLITUS WITH FOOT ULCER 03/19/[address] DRIVER Ot 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 03/19/2019 DIEUDONNE, [address] DRIVER Ot 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 OTH PRT RIGHT FOOT 03/19/[address] DRIVER Ot 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 MELLITUS WITH FOOT ULCER 03/19/[address] DRIVER Ot 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 03/19/[address] DRIVER Ot 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 OTH PRT RIGHT FOOT 03/19/[address] DRIVER Ot 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 MELLITUS WITH FOOT ULCER 03/19/[address] DRIVER Ot 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 03/19/[address] DRIVER Ot 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 OTH PRT RIGHT FOOT 03/19/[address] DRIVER Ot M79.89 OTHER SPECIFIED SOFT TISSUE DISORDERS 03/19/[address] DRIVER Ot E11.52 TYPE 2 DIABETES W DIABETIC PERIPHERAL AN 03/19/[address] DRIVER Ot 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 MELLITUS WITH FOOT ULCER 03/19/[address] DRIVER Ot 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 03/19/[address] DRIVER Ot 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 OTH PRT RIGHT FOOT 03/19/[address] DRIVER Ot E11.52 TYPE 2 DIABETES W DIABETIC PERIPHERAL AN 03/19/[address] DRIVER Ot 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 MELLITUS WITH FOOT ULCER 03/19/[address] DRIVER Ot 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 03/19/[address] DRIVER Ot 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 OTH PRT RIGHT FOOT 03/19/[address] DRIVER Ot E11.52 TYPE 2 DIABETES W DIABETIC PERIPHERAL AN 03/19/[address] DRIVER Ot 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 MELLITUS WITH FOOT ULCER 03/19/[address] DRIVER Ot 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 03/19/[address] DRIVER Ot 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 OTH PRT RIGHT FOOT 03/20/[address] DRIVER Ot 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 MELLITUS WITH FOOT ULCER 03/20/[address] DRIVER Ot 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 03/20/[address] DRIVER Ot 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 OTH PRT RIGHT FOOT 03/23/[address] DRIVER Ot E11.52 TYPE 2 DIABETES W DIABETIC PERIPHERAL AN 03/23/[address] DRIVER Ot 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 MELLITUS WITH FOOT ULCER 03/23/[address] DRIVER Ot 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 03/23/[address] DRIVER Ot 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 OTH PRT RIGHT FOOT 03/23/[address]IVER Ot 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 MELLITUS WITH FOOT ULCER 03/23/[address] DRIVER Ot 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 03/23/[address] DRIVER Ot 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 OTH PRT RIGHT FOOT 03/25/[address] DRIVER Ot 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 MELLITUS WITH FOOT ULCER 03/25/[address] DRIVER Ot 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 03/25/[address] DRIVER Ot 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 OTH PRT RIGHT FOOT 03/25/2019 NILS SKINNERP Ot E11.9 TYPE 2 DIABETES MELLITUS WITHOUT COMPLIC 03/25/2019 SUSANNE NILS FINANCE CONTROLLER Ot E78.00 PURE HYPERCHOLESTEROLEMIA, UNSPECIFIED 03/25/2019 SUSANNE NILS FINANCE CONTROLLER Ot E87.5 HYPERKALEMIA 03/25/2019 NILS SKINNER FINANCE CONTROLLER Ot F32.9 MAJOR DEPRESSIVE DISORDER, SINGLE EPISOD 03/25/2019 NILS SKINNERP Ot I10 ESSENTIAL (PRIMARY) HYPERTENSION 03/25/2019 NILS SKINNER FINANCE CONTROLLER Ot I25.10 ATHSCL HEART DISEASE OF [place] CORONARY 03/25/2019 NILS SKINNERP Ot I48.91 UNSPECIFIED ATRIAL FIBRILLATION 03/25/2019 SUSANNE, NILS FINANCE CONTROLLER Ot J44.9 CHRONIC OBSTRUCTIVE PULMONARY DISEASE, U 03/25/2019 SUSANNE NILS FINANCE CONTROLLER Ot K21.9 GASTRO-ESOPHAGEAL REFLUX DISEASE WITHOUT 03/25/2019 SUSANNE, NILS FINANCE CONTROLLER Ot Z79.01 [facility] (CURRENT) USE OF ANTICOAGULANT 03/25/2019 SUSANNE, NILS FINANCE CONTROLLER Ot Z79.4 NURSE LICENSED PRACTICAL (CURRENT) USE OF INSULIN 03/25/2019 SUSANNE, NILS FINANCE CONTROLLER Ot Z79.82 NURSE LICENSED PRACTICAL (CURRENT) USE OF ASPIRIN 03/27/2019 SUSANNE, NILS FINANCE CONTROLLER Ot E11.9 TYPE 2 DIABETES MELLITUS WITHOUT COMPLIC 03/27/2019 SUSANNE, NILS FINANCE CONTROLLER Ot E78.00 PURE HYPERCHOLESTEROLEMIA, UNSPECIFIED 03/27/2019 SUSANNE, NILS FINANCE CONTROLLER Ot E87.5 HYPERKALEMIA 03/27/2019 SUSANNE, NILS FINANCE CONTROLLER Ot F32.9 MAJOR DEPRESSIVE DISORDER, SINGLE EPISOD 03/27/2019 SUSANNE, NILS FINANCE CONTROLLER Ot I10 ESSENTIAL (PRIMARY) HYPERTENSION 03/27/2019 SUSANNE, NILS FINANCE CONTROLLER Ot I25.10 ATHSCL HEART DISEASE OF [place] CORONARY 03/27/2019 SUSANNE, NILS FINANCE CONTROLLER Ot I48.91 UNSPECIFIED ATRIAL FIBRILLATION 03/27/2019 SUSANNE, NILS FINANCE CONTROLLER Ot J44.9 CHRONIC OBSTRUCTIVE PULMONARY DISEASE, U 03/27/2019 SUSANNE, NILS FINANCE CONTROLLER Ot K21.9 GASTRO-ESOPHAGEAL REFLUX DISEASE WITHOUT 03/27/2019 SUSANNE, NILS FINANCE CONTROLLER Ot Z79.01 NURSE LICENSED PRACTICAL (CURRENT) USE OF ANTICOAGULANT 03/27/2019 SUSANNE NILS FINANCE CONTROLLER Ot Z79.4 NURSE LICENSED PRACTICAL (CURRENT) USE OF INSULIN 03/27/2019 SUSANNE NILS FINANCE CONTROLLER Ot Z79.82 [facility] (CURRENT) USE OF ASPIRIN 03/27/[address] DRIVER Ot 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 MELLITUS WITH FOOT ULCER 03/27/[address] DRIVER Ot 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 03/27/2019 WESLEY BRO APRN Ot 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 OTH PRT RIGHT FOOT 03/27/[address] DRIVER Ot 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 MELLITUS WITH FOOT ULCER 03/27/[address] DRIVER Ot 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 03/27/[address]IVER Ot 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 OTH PRT RIGHT FOOT 04/01/[address]IVER Ot 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 MELLITUS WITH FOOT ULCER 04/01/[address]IVER Ot 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 04/01/[address] DRIVER Ot 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 OTH PRT RIGHT FOOT 04/02/[address]IVER Ot 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 MELLITUS WITH FOOT ULCER 04/02/[address]IVER Ot 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 04/02/[address] DRIVER Ot 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 OTH PRT RIGHT FOOT 04/03/[address]IVER Ot E11.52 TYPE 2 DIABETES W DIABETIC PERIPHERAL AN 04/03/[address] DRIVER Ot 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 MELLITUS WITH FOOT ULCER 04/03/[address]IVER Ot 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 04/03/[address] DRIVER Ot 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 OTH PRT RIGHT FOOT 04/03/[address]IVER Ot E11.52 TYPE 2 DIABETES W DIABETIC PERIPHERAL AN 04/03/[address] DRIVER Ot 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 MELLITUS WITH FOOT ULCER 04/03/[address] DRIVER Ot 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 04/03/[address] DRIVER Ot 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 OTH PRT RIGHT FOOT 04/03/[address] DRIVER Ot 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 MELLITUS WITH FOOT ULCER 04/03/[address]IVER Ot 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 04/03/[address] DRIVER Ot 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 OTH PRT RIGHT FOOT 04/06/[address]IVER Ot E11.52 TYPE 2 DIABETES W DIABETIC PERIPHERAL AN 04/06/2019 DIEUDONNE, [address] DRIVER Ot 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 MELLITUS WITH FOOT ULCER 04/06/[address] DRIVER Ot 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 04/06/[address] DRIVER Ot 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 OTH PRT RIGHT FOOT 04/06/[address] DRIVER Ot 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 MELLITUS WITH FOOT ULCER 04/06/[address] DRIVER Ot 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 04/06/[address] DRIVER Ot 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 OTH PRT RIGHT FOOT 04/09/[address] DRIVER Ot E11.52 TYPE 2 DIABETES W DIABETIC PERIPHERAL AN 04/09/[address] DRIVER Ot 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 MELLITUS WITH FOOT ULCER 04/09/[address] DRIVER Ot 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 04/09/[address] DRIVER Ot 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 OTH PRT RIGHT FOOT 04/09/[address] DRIVER Ot 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 MELLITUS WITH FOOT ULCER 04/09/[address] DRIVER Ot 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 04/09/[address] DRIVER Ot 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 OTH PRT RIGHT FOOT 04/09/[address] DRIVER Ot E11.52 TYPE 2 DIABETES W DIABETIC PERIPHERAL AN 04/09/[address] DRIVER Ot 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 MELLITUS WITH FOOT ULCER 04/09/[address] DRIVER Ot 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 04/09/[address] DRIVER Ot 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 OTH PRT RIGHT FOOT 04/09/[address] DRIVER Ot E11.52 TYPE 2 DIABETES W DIABETIC PERIPHERAL AN 04/09/[address] DRIVER Ot 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 MELLITUS WITH FOOT ULCER 04/09/[address] DRIVER Ot 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 04/09/[address] DRIVER Ot 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 OTH PRT RIGHT FOOT 04/14/[address] DRIVER Ot 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 MELLITUS WITH FOOT ULCER 04/14/[address] DRIVER Ot 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 04/14/[address] DRIVER Ot 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 OTH PRT RIGHT FOOT 04/19/2019 LO TANIA GARVIN Ot E11.52 TYPE 2 DIABETES W DIABETIC PERIPHERAL AN 04/19/2019 TANIA SINGH MD Ot 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 MELLITUS WITH FOOT ULCER 04/19/2019 LO TANIA GARVIN Ot 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 04/19/2019 TANIA SINGH MD Ot L97.512 NON- PRS CHRONIC ULCER OTH PRT RIGHT FOOT 04/19/2019 LO TANIA GARVIN Ot 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 MELLITUS WITH FOOT ULCER 04/19/2019 TANIA SINGH MD Ot 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 04/19/2019 TANIA SINGH MD Ot L97.512 NON- PRS CHRONIC ULCER OTH PRT RIGHT FOOT 04/20/[address] DRIVER Ot E11.52 TYPE 2 DIABETES W DIABETIC PERIPHERAL AN 04/20/[address] DRIVER Ot 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 MELLITUS WITH FOOT ULCER 04/20/[address] DRIVER Ot 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 04/20/[address] DRIVER Ot 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 OTH PRT RIGHT FOOT 04/22/[address] DRIVER Ot E11.52 TYPE 2 DIABETES W DIABETIC PERIPHERAL AN 04/22/[address] DRIVER Ot 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 MELLITUS WITH FOOT ULCER 04/22/[address] DRIVER Ot 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 04/22/[address] DRIVER Ot 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 OTH PRT RIGHT FOOT 04/22/[address] DRIVER Ot 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 MELLITUS WITH FOOT ULCER 04/22/2019 [address] APRN Ot 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 04/22/[address] DRIVER Ot 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 OTH PRT RIGHT FOOT 04/23/[address] DRIVER Ot 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 MELLITUS WITH FOOT ULCER 04/23/[address] DRIVER Ot 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 04/23/2019 [address] APRN Ot 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 OTH PRT RIGHT FOOT 04/24/2019 TANIA SINGH MD, Ot 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 MELLITUS WITH FOOT ULCER 04/24/2019 TANIA SINGH MD Ot 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 04/24/2019 TANIA SINGH MD Ot L97.512 NON- PRS CHRONIC ULCER OTH PRT RIGHT FOOT 04/24/2019 TANIA SINGH MD Ot M86.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, RIGHT ANKLE A 04/29/2019 TANIA SINGH MD Ot 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 MELLITUS WITH FOOT ULCER 04/29/2019 TANIA SINGH MD Ot 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 04/29/2019 TANIA SINGH MD Ot L97.512 NON- PRS CHRONIC ULCER OTH PRT RIGHT FOOT 04/29/2019 TANIA SINGH MD Ot M86.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, RIGHT ANKLE A 04/30/[address] DRIVER Ot 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 MELLITUS WITH FOOT ULCER 04/30/2019 [address] APRN Ot 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 04/30/2019 [address] APRN Ot 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 OTH PRT RIGHT FOOT 04/30/[address] DRIVER Ot E11.52 TYPE 2 DIABETES W DIABETIC PERIPHERAL AN 04/30/[address] DRIVER Ot 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 MELLITUS WITH FOOT ULCER 04/30/[address] DRIVER Ot 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 04/30/[address] DRIVER Ot 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 OTH PRT RIGHT FOOT 05/04/2019 TANIA SINGH MD, Ot E11.52 TYPE 2 DIABETES W DIABETIC PERIPHERAL AN 05/04/2019 TANIA SINGH MD, Ot 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 MELLITUS WITH FOOT ULCER 05/04/2019 TANIA SINGH MD Ot 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 05/04/2019 TANIA SINGH MD, Ot L97.516 NON- PRS [facility] OT PRT R FOOT WITH BNE 05/08/2019 TANIA SINGH MD, Ot 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 MELLITUS WITH FOOT ULCER 05/08/2019 TANIA SINGH MD Ot 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 05/08/2019 TANIA SINGH MD, Ot L03.011 CELLULITIS OF RIGHT FINGER 05/08/2019 TANIA SINGH MD, Ot L97.516 NON- PRS [facility] OT PRT R FOOT WITH BNE 05/08/2019 TANIA SINGH MD Ot M86.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, RIGHT ANKLE A 05/14/2019 TANIA SINGH MD, Ot E11.52 TYPE 2 DIABETES W DIABETIC PERIPHERAL AN 05/14/2019 TANIA SINGH MD, Ot 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 MELLITUS WITH FOOT ULCER 05/14/2019 TANIA SINGH MD Ot 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 05/14/2019 TANIA SINGH MD, Ot L97.512 NON- PRS CHRONIC ULCER OTH PRT RIGHT FOOT 05/15/[address] DRIVER Ot E11.52 TYPE 2 DIABETES W DIABETIC PERIPHERAL AN 05/15/2019 [address] APRN Ot 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 MELLITUS WITH FOOT ULCER 05/15/[address] DRIVER Ot 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 05/15/2019 [address] APRN Ot 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 OTH PRT RIGHT FOOT 05/15/2019 TANIA SINGH MD, Ot 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 MELLITUS WITH FOOT ULCER 05/15/2019 TANIA SINGH MD Ot 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 05/15/2019 TANIA SINGH MD, Ot L97.512 NON- PRS CHRONIC ULCER OTH PRT RIGHT FOOT 05/15/2019 LO MD, KIRTIE Ot 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 MELLITUS WITH FOOT ULCER 05/15/2019 LO TANIA GARVIN Ot 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 05/15/2019 TANIA SINGH MD, Ot L97.512 NON- PRS CHRONIC ULCER OTH PRT RIGHT FOOT 05/15/2019 LO TANIA GARVIN Ot M86.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, RIGHT ANKLE A 05/19/[address] DRIVER Ot 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 MELLITUS WITH FOOT ULCER 05/19/[address] DRIVER Ot 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 05/19/2019 [address] APRN Ot 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 OTH PRT RIGHT FOOT 05/22/2019 TANIA SINGH MD, Ot 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 MELLITUS WITH FOOT ULCER 05/22/2019 TANIA SINGH MD Ot 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 05/22/2019 TANIA SINGH MD, Ot L97.516 NON- PRS [facility] OTH PRT R FOOT WITH BNE 05/22/2019 TANIA SINGH MD Ot M86.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, RIGHT ANKLE A 05/26/2019 TANIA SINGH MD Ot E11.52 TYPE 2 DIABETES W DIABETIC PERIPHERAL AN 05/26/2019 TANIA SINGH MD, Ot 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 MELLITUS WITH FOOT ULCER 05/26/2019 TANIA SINGH MD Ot 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 05/26/2019 TANIA SINHG MD, Ot L97.512 NON- PRS CHRONIC ULCER OTH PRT RIGHT FOOT 05/26/2019 TANIA SINGH MD, Ot 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 MELLITUS WITH FOOT ULCER 05/26/2019 TANIA SINGH MD Ot 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 05/26/2019 TANIA SINGH MD Ot L97.512 NON- PRS CHRONIC ULCER OTH PRT RIGHT FOOT 05/26/[address] DRIVER Ot E11.52 TYPE 2 DIABETES W DIABETIC PERIPHERAL AN 05/26/[address] DRIVER Ot 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 MELLITUS WITH FOOT ULCER 05/26/[address] DRIVER Ot 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 05/26/2019 [address] APRN Ot 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 [facility] PRT RIGHT FOOT 05/28/2019 TANIA SINGH MD, Ot E11.52 TYPE 2 DIABETES W DIABETIC PERIPHERAL AN 05/28/2019 TANIA SINGH MD, Ot 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 MELLITUS WITH FOOT ULCER 05/28/2019 TANIA SINGH MD Ot 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 05/28/2019 TANIA SINGH MD, Ot L97.516 NON- PRS [facility] PRT R FOOT WITH BNE 06/02/2019 TANIA SINGH MD, Ot 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 MELLITUS WITH FOOT ULCER 06/02/2019 TANIA SINGH MD Ot 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 06/02/2019 TANIA SINGH MD Ot L03.011 CELLULITIS OF RIGHT FINGER 06/02/2019 TANIA SINGH MD, Ot L97.516 NON- PRS [facility] PRT R FOOT WITH BNE 06/02/2019 TANIA SINGH MD Ot M86.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, RIGHT ANKLE A 06/04/2019 TANIA SINGH MD, Ot 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 MELLITUS WITH FOOT ULCER 06/04/2019 TANIA SINGH MD Ot 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 06/04/2019 TANIA SINGH MD Ot L03.011 CELLULITIS OF RIGHT FINGER 06/04/2019 TANIA SINGH MD, Ot L97.516 NON- PRS [facility] PRT R FOOT WITH BNE 06/04/2019 TANIA SINGH MD Ot M86.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, RIGHT ANKLE A 2019 TANIA SINGH MD, Ot 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 MELLITUS WITH FOOT ULCER 2019 TANIA SINGH MD Ot 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 OTH PRT R FOOT WITH BNE 06/22/2019 TANIA SINGH MD, Ot M86.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, RIGHT ANKLE A Procedures There is no data. Results Test Result Range Complete blood count (CBC) with automate d white blood cell (WBC) differential - 07/12/17 15:41 Blood leukocytes automated count (number/volume) 8.1 10*3/uL 4.3-11.0 Blood erythrocytes automated count (number/volume) 4.11 10*6/uL 4.35-5.85 Venous blood hemoglobin measurement (mass/volume) 10.1 g/dL 11.5-16.0 Blood hematocrit (volume fraction) 33 % 35-52 Automated erythrocyte mean corpuscular volume 81 [ foz_us] 80-99 Automated erythrocyte mean corpuscular h emoglobin (mass per erythrocyte) 25 pg 25-34 Automated erythrocyte mean corpuscular h emoglobin concentration measurement (mass/volume) 30 g/dL 32-36 Automated erythrocyte distribution width ratio 18. 1 % 10.0- 14.5 Automated blood platelet count (count/volume) 183 10*3/uL 130-400 Automated blood platelet mean volume measurement 9.2 [foz_us] 7.4-10.4 Automated blood neutrophils/100 leukocytes 69 % 42-75 Automated blood lymphocytes/100 leukocytes 24 % 12-44 Blood monocytes/100 leukocytes 6 % 0-12 Automated blood eosinophils/100 leukocytes 1 % 0-10 Automated blood basophils/100 leukocytes 0 % 0-10 Blood neutrophils automated count (number/volume) 5.6 10*3 1.8-7.8 Blood lymphocytes automated count (number/volume) 2.0 10*3 1.0-4.0 Blood monocytes automated count (number/volume) 0. 5 10*3 0.0-1.0 Automated eosinophil count 0.1 10*3/uL 0 .0-0.3 Automated blood basophil count (count/volume) 0.0 10*3/uL 0.0-0.1 Complete urinalysis with reflex to cultu re - 07/12/17 15:41 Urine color determination YELLOW NRG Urine clarity determination CLEAR NR G Urine pH measurement by test strip 5 5-9 Specific gravity of urine by test strip 1.015 1.016-1.022 Urine protein assay by test strip, semi-quantitative 1+ NEGATIVE Urine glucose detection by automated test strip NE GATIVE NEGATIVE Erythrocytes detection in urine sediment by light micr oscopy NEGATIVE NEGATIVE Urine ketones detection by automated test strip NE GATIVE NEGATIVE Urine nitrite detection by test strip NEGATIVE NEGATIVE Urine total bilirubin detection by test strip NEGA TIVE NEGATIVE Urine urobilinogen measurement by automated test strip (mass/volume) NORMAL NORMAL Urine leukocyte esterase detection by dipstick NEG ATIVE NEGATIVE Automated urine sediment erythrocyte cou nt by microscopy (number/high power field) NONE NRG Automated urine sediment leukocyte count by microscopy (number/high power field) NONE NRG Bacteria detection in urine sediment by light microsco py NEGATIVE NRG Squamous epithelial cells detection in u rine sediment by light microscopy NONE NRG Crystals detection in urine sediment by light microsco py NONE NRG Casts detection in urine sediment by light microscopy NONE NRG Mucus detection in urine sediment by light microscopy NEGATIVE NRG Complete urinalysis with reflex to culture NO NRG Comprehensive metabolic panel - 07/12/17 15:41 Serum or plasma sodium measurement (moles/volume) 140 mmol/L 135-145 Serum or plasma potassium measurement (moles/volume) 5.5 mmol/L 3.6-5.0 Serum or plasma chloride measurement (moles/volume) 104 mmol/L 98-107 Carbon dioxide 30 mmol/L 21-32 Serum or plasma anion gap determination (moles/volume) 6 mmol/L 5-14 Serum or plasma urea nitrogen measurement (mass/volume ) 30 mg/dL 7-18 Serum or plasma creatinine measurement (mass/volume) 1.41 mg/dL 0.60-1.30 Serum or plasma urea nitrogen/creatinine mass ratio 21 NRG Serum or plasma creatinine measurement w ith calculation of estimated glomerular filtration rate 35 NRG Serum or plasma glucose measurement (mass/volume) 106 mg/dL 70-105 Serum or plasma calcium measurement (mass/volume) 8.2 mg/dL 8.5-10.1 Serum or plasma total bilirubin measurement (mass/volu me) 0.3 mg/dL 0.1-1.0 Serum or plasma alkaline phosphatase [place] surement (enzymatic activity/volume) 92 U/L 40-136 Serum or plasma aspartate aminotransfera se measurement (enzymatic activity/volume) 16 U/L 5-34 Serum or plasma alanine aminotransferase measurement (enzymatic activity/volume) 24 U/L 0-55 Serum or plasma protein measurement (mass/volume) 5.4 g/dL 6.4-8.2 Serum or plasma albumin measurement (mass/volume) 2.9 g/dL 3.2-4.5 Hemoglobin A1c - 09/20/17 12:33 Blood hemoglobin A1C measurement (mass/volume) 5.4 % 4.0-5.6 MEAN BLOOD GLUCOSE 108 % <=126 Bacteria identification in isolate by an aerobe culture - 12/12/17 10:58 QUANTITY OF GROWTH . NRG Bacteria identification in isolate by anaerobe culture SEE COMMEN NR Gram stain microscopy - 12/12/17 10:58 Gram stain microscopy REPORTED 12-13-2017, 0605. NRG Bacteria identification in wound by cult ure - 12/12/17 10:58 Bacteria identification in wound by culture NG NR Bacteria identification in isolate by an aerobe culture - 12/25/17 14:00 Bacteria identification in isolate by anaerobe culture NOANA NR Gram stain microscopy - 12/25/17 14:00 Gram stain microscopy REPORT 12-26-2017, 0906. NRG Bacteria identification in wound by cult ure - 12/25/17 14:00 Bacteria identification in wound by culture NG [facility] Influenza virus A and B antigen detectio n - 03/27/18 08:10 FLU RESULT NEGATIVE FOR INFLUENZA A AND B ANTIGENS BY IA [facility] Complete blood count (CBC) with automate d white blood cell (WBC) differential - 03/27/18 08:20 Blood leukocytes automated count (number/volume) 13.4 10*3/uL 4.3-11.0 Blood erythrocytes automated count (number/volume) 4.38 10*6/uL 4.35-5.85 Venous blood hemoglobin measurement (mass/volume) 11.2 g/dL 13.3-17.7 Blood hematocrit (volume fraction) 35 % 40-54 Automated erythrocyte mean corpuscular volume 80 [ foz_us] 80-99 Automated erythrocyte mean corpuscular h emoglobin (mass per erythrocyte) 26 pg 25-34 Automated erythrocyte mean corpuscular h emoglobin concentration measurement (mass/volume) 32 g/dL 32-36 Automated erythrocyte distribution width ratio 17. 4 % 10.0- 14.5 Automated blood platelet count (count/volume) 244 10*3/uL 130-400 Automated blood platelet mean volume measurement 8.8 [foz_us] 7.4-10.4 Automated blood neutrophils/100 leukocytes 79 % 42-75 Automated blood lymphocytes/100 leukocytes 13 % 12-44 Blood monocytes/100 leukocytes 8 % 0-12 Automated blood eosinophils/100 leukocytes 1 % 0-10 Automated blood basophils/100 leukocytes 0 % 0-10 Blood neutrophils automated count (number/volume) 10.5 10*3 1.8-7.8 Blood lymphocytes automated count (number/volume) 1.7 10*3 1.0-4.0 Blood monocytes automated count (number/volume) 1. 0 10*3 0.0-1.0 Automated eosinophil count 0.1 10*3/uL 0 .0-0.3 Automated blood basophil count (count/volume) 0.0 10*3/uL 0.0-0.1 Comprehensive metabolic panel - 03/27/18 08:20 Serum or plasma sodium measurement (moles/volume) 138 mmol/L 135-145 Serum or plasma potassium measurement (moles/volume) 4.4 mmol/L 3.6-5.0 Serum or plasma chloride measurement (moles/volume) 105 mmol/L 98-107 Carbon dioxide 21 mmol/L 21-32 Serum or plasma anion gap determination (moles/volume) 12 mmol/L 5-14 Serum or plasma urea nitrogen measurement (mass/volume ) 44 mg/dL 7-18 Serum or plasma creatinine measurement (mass/volume) 1.84 mg/dL 0.60-1.30 Serum or plasma urea nitrogen/creatinine mass ratio 24 NRG Serum or plasma creatinine measurement w ith calculation of estimated glomerular filtration rate 35 NRG Serum or plasma glucose measurement (mass/volume) 128 mg/dL 70-105 Serum or plasma calcium measurement (mass/volume) 9.3 mg/dL 8.5-10.1 Serum or plasma total bilirubin measurement (mass/volu me) 0.6 mg/dL 0.1-1.0 Serum or plasma alkaline phosphatase [place] sure[place] (enzymatic activity/volume) 160 U/L 40-136 Serum or plasma aspartate aminotransfera se measurement (enzymatic activity/volume) 37 U/L 5-34 Serum or plasma alanine aminotransferase measurement (enzymatic activity/volume) 44 U/L 0-55 Serum or plasma protein measurement (mass/volume) 7.3 g/dL 6.4-8.2 Serum or plasma albumin measurement (mass/volume) 3.6 g/dL 3.2-4.5 CALCIUM CORRECTED 9.6 mg/dL 8.5-10.1 PT panel in platelet poor plasma by coag ulation assay - 03/27/18 08:20 Prothrombin time (PT) in platelet poor plasma by coagu lation assay 15.5 s 12.2-14.7 INR in platelet poor plasma or blood by coagulation as say 1.2 0.8-1.4 Activated partial thromboplastin time (a PTT) in platelet poor plasma bycoagulation assay - 03/27/18 08:20 Activated partial thromboplastin time (a PTT) in platelet poor plasma bycoagulation assay 32 s 24-35 Bacterial blood culture - 03/27/18 08:20 Bacterial blood culture NG NRG Blood lactic acid measurement (moles/vol ume) - 03/27/18 08:45 Blood lactic acid measurement (moles/volume) 0.69 mmol/L 0.50-2.00 Bacterial blood culture - 03/27/18 08:45 FREE TEXT EXTERNAL NOT STREP PNEUMONIAE OR ENTEROC OCCUS NRG QUANTITY OF GROWTH Isolated NRG Bacterial blood culture [id number] NRG Complete urinalysis with reflex to cultu re - 03/27/18 11:45 Urine color determination ROSI NRG Urine clarity determination CLEAR NR G Urine pH measurement by test strip 5 5-9 Specific gravity of urine by test strip 1.020 1.016-1.022 Urine protein assay by test strip, semi-quantitative 2+ NEGATIVE Urine glucose detection by automated test strip NE GATIVE NEGATIVE Erythrocytes detection in urine sediment by light micr oscopy NEGATIVE NEGATIVE Urine ketones detection by automated test strip NE GATIVE NEGATIVE Urine nitrite detection by test strip NEGATIVE NEGATIVE Urine total bilirubin detection by test strip NEGA TIVE NEGATIVE Urine urobilinogen measurement by automated test strip (mass/volume) NORMAL NORMAL Urine leukocyte esterase detection by dipstick 1+ NEGATIVE Automated urine sediment erythrocyte cou nt by microscopy (number/high power field) NONE NRG Automated urine sediment leukocyte count by microscopy (number/high power field) RARE NRG Bacteria detection in urine sediment by light microsco py NEGATIVE NRG Squamous epithelial cells detection in u rine sediment by light microscopy RARE NRG Crystals detection in urine sediment by light microsco py NONE NRG Casts detection in urine sediment by light microscopy PRESENT NRG Mucus detection in urine sediment by light microscopy NEGATIVE NRG Complete urinalysis with reflex to culture NO NRG Hyaline casts detection in urine sediment by light yvan roscopy 0-2 NRG Bacterial urine culture - 03/27/18 11:45 Bacterial urine culture SEE COMMEN NRG COLONY COUNT . NRG Capillary blood glucose measurement by g lucometer (mass/volume) - 03/27/18 16:29 Capillary blood glucose measurement by glucometer (mas s/volume) 154 mg/dL 70-110 Capillary blood glucose measurement by g lucometer (mass/volume) - 03/27/18 19:16 Capillary blood glucose measurement by glucometer (mas s/volume) 168 mg/dL 70-110 Complete blood count (CBC) with automate d white blood cell (WBC) differential - 03/28/18 03:45 Blood leukocytes automated count (number/volume) 10.5 10*3/uL 4.3-11.0 Blood erythrocytes automated count (number/volume) 4.06 10*6/uL 4.35-5.85 Venous blood hemoglobin measurement (mass/volume) 10.3 g/dL 13.3-17.7 Blood hematocrit (volume fraction) 33 % 40-54 Automated erythrocyte mean corpuscular volume 82 [ foz_us] 80-99 Automated erythrocyte mean corpuscular h emoglobin (mass per erythrocyte) 25 pg 25-34 Automated erythrocyte mean corpuscular h emoglobin concentration measurement (mass/volume) 31 g/dL 32-36 Automated erythrocyte distribution width ratio 16. 9 % 10.0- 14.5 Automated blood platelet count (count/volume) 210 10*3/uL 130-400 Automated blood platelet mean volume measurement 8.7 [foz_us] 7.4-10.4 Automated blood neutrophils/100 leukocytes 75 % 42-75 Automated blood lymphocytes/100 leukocytes 15 % 12-44 Blood monocytes/100 leukocytes 7 % 0-12 Automated blood eosinophils/100 leukocytes 2 % 0-10 Automated blood basophils/100 leukocytes 0 % 0-10 Blood neutrophils automated count (number/volume) 7.9 10*3 1.8-7.8 Blood lymphocytes automated count (number/volume) 1.6 10*3 1.0-4.0 Blood monocytes automated count (number/volume) 0. 8 10*3 0.0-1.0 Automated eosinophil count 0.2 10*3/uL 0 .0-0.3 Automated blood basophil count (count/volume) 0.0 10*3/uL 0.0-0.1 Whole blood basic metabolic panel - 03/09 04/25 03:45 Serum or plasma sodium measurement (moles/volume) 138 mmol/L 135-145 Serum or plasma potassium measurement (moles/volume) 4.3 mmol/L 3.6-5.0 Serum or plasma chloride measurement (moles/volume) 107 mmol/L 98-107 Carbon dioxide 19 mmol/L 21-32 Serum or plasma anion gap determination (moles/volume) 12 mmol/L 5-14 Serum or plasma urea nitrogen measurement (mass/volume ) 40 mg/dL 7-18 Serum or plasma creatinine measurement (mass/volume) 1.74 mg/dL 0.60-1.30 Serum or plasma urea nitrogen/creatinine mass ratio 23 NRG Serum or plasma creatinine measurement w ith calculation of estimated glomerular filtration rate 37 NRG Serum or plasma glucose measurement (mass/volume) 123 mg/dL 70-105 Serum or plasma calcium measurement (mass/volume) 9.0 mg/dL 8.5-10.1 Capillary blood glucose measurement by g lucometer (mass/volume) - 03/28/18 05:07 Capillary blood glucose measurement by glucometer (mas s/volume) 121 mg/dL 70-110 Capillary blood glucose measurement by g lucometer (mass/volume) - 03/28/18 11:19 Capillary blood glucose measurement by glucometer (mas s/volume) 127 mg/dL 70-110 Capillary blood glucose measurement by g lucometer (mass/volume) - 03/28/18 15:43 Capillary blood glucose measurement by glucometer (mas s/volume) 162 mg/dL 70-110 Capillary blood glucose measurement by g lucometer (mass/volume) - 03/28/18 20:19 Capillary blood glucose measurement by glucometer (mas s/volume) 127 mg/dL 70-110 Capillary blood glucose measurement by g lucometer (mass/volume) - 03/29/18 05:00 Capillary blood glucose measurement by glucometer (mas s/volume) 111 mg/dL 70-110 Capillary blood glucose measurement by g lucometer (mass/volume) - 03/29/18 11:17 Capillary blood glucose measurement by glucometer (mas s/volume) 125 mg/dL 70-110 Capillary blood glucose measurement by g lucometer (mass/volume) - 03/29/18 15:33 Capillary blood glucose measurement by glucometer (mas s/volume) 172 mg/dL 70-110 Capillary blood glucose measurement by g lucometer (mass/volume) - 03/29/18 20:05 Capillary blood glucose measurement by glucometer (mas s/volume) 150 mg/dL 70-110 Capillary blood glucose measurement by g lucometer (mass/volume) - 03/30/18 05:09 Capillary blood glucose measurement by glucometer (mas s/volume) 122 mg/dL 70-110 Capillary blood glucose measurement by g lucometer (mass/volume) - 03/30/18 11:21 Capillary blood glucose measurement by glucometer (mas s/volume) 154 mg/dL 70-110 Capillary blood glucose measurement by g lucometer (mass/volume) - 03/30/18 16:11 Capillary blood glucose measurement by glucometer (mas s/volume) 125 mg/dL 70-110 Capillary blood glucose measurement by g lucometer (mass/volume) - 03/30/18 20:16 Capillary blood glucose measurement by glucometer (mas s/volume) 229 mg/dL 70-110 Complete blood count (CBC) with automate d white blood cell (WBC) differential - 03/31/18 05:25 Blood leukocytes automated count (number/volume) 13.5 10*3/uL 4.3-11.0 Blood erythrocytes automated count (number/volume) 3.93 10*6/uL 4.35-5.85 Venous blood hemoglobin measurement (mass/volume) 10.1 g/dL 13.3-17.7 Blood hematocrit (volume fraction) 31 % 40-54 Automated erythrocyte mean corpuscular volume 80 [ foz_us] 80-99 Automated erythrocyte mean corpuscular h emoglobin (mass per erythrocyte) 26 pg 25-34 Automated erythrocyte mean corpuscular h emoglobin concentration measurement (mass/volume) 32 g/dL 32-36 Automated erythrocyte distribution width ratio 16. 8 % 10.0- 14.5 Automated blood platelet count (count/volume) 312 10*3/uL 130-400 Automated blood platelet mean volume measurement 8.9 [foz_us] 7.4-10.4 Automated blood neutrophils/100 leukocytes 75 % 42-75 Automated blood lymphocytes/100 leukocytes 15 % 12-44 Blood monocytes/100 leukocytes 7 % 0-12 Automated blood eosinophils/100 leukocytes 4 % 0-10 Automated blood basophils/100 leukocytes 0 % 0-10 Blood neutrophils automated count (number/volume) 10.1 10*3 1.8-7.8 Blood lymphocytes automated count (number/volume) 2.0 10*3 1.0-4.0 Blood monocytes automated count (number/volume) 0. 9 10*3 0.0-1.0 Automated eosinophil count 0.5 10*3/uL 0 .0-0.3 Automated blood basophil count (count/volume) 0.1 10*3/uL 0.0-0.1 Comprehensive metabolic panel - 03/31/18 05:25 Serum or plasma sodium measurement (moles/volume) 137 mmol/L 135-145 Serum or plasma potassium measurement (moles/volume) 4.3 mmol/L 3.6-5.0 Serum or plasma chloride measurement (moles/volume) 105 mmol/L 98-107 Carbon dioxide 21 mmol/L 21-32 Serum or plasma anion gap determination (moles/volume) 11 mmol/L 5-14 Serum or plasma urea nitrogen measurement (mass/volume ) 30 mg/dL 7-18 Serum or plasma creatinine measurement (mass/volume) 1.49 mg/dL 0.60-1.30 Serum or plasma urea nitrogen/creatinine mass ratio 20 NRG Serum or plasma creatinine measurement w ith calculation of estimated glomerular filtration rate 45 NRG Serum or plasma glucose measurement (mass/volume) 110 mg/dL 70-105 Serum or plasma calcium measurement (mass/volume) 8.8 mg/dL 8.5-10.1 Serum or plasma total bilirubin measurement (mass/volu me) 0.3 mg/dL 0.1-1.0 Serum or plasma alkaline phosphatase [place] surement (enzymatic activity/volume) 157 U/L 40-136 Serum or plasma aspartate aminotransfera se measurement (enzymatic activity/volume) 46 U/L 5-34 Serum or plasma alanine aminotransferase measurement (enzymatic activity/volume) 58 U/L 0-55 Serum or plasma protein measurement (mass/volume) 6.4 g/dL 6.4-8.2 Serum or plasma albumin measurement (mass/volume) 3.1 g/dL 3.2-4.5 CALCIUM CORRECTED 9.5 mg/dL 8.5-10.1 Capillary blood glucose measurement by g lucometer (mass/volume) - 03/31/18 05:46 Capillary blood glucose measurement by glucometer (mas s/volume) 127 mg/dL 70-110 Capillary blood glucose measurement by g lucometer (mass/volume) - 03/31/18 12:30 Capillary blood glucose measurement by glucometer (mas s/volume) 218 mg/dL 70-110 Complete blood count (CBC) with automate d white blood cell (WBC) differential - 04/03/18 15:00 Blood leukocytes automated count (number/volume) 11.3 10*3/uL 4.3-11.0 Blood erythrocytes automated count (number/volume) 3.89 10*6/uL 4.35-5.85 Venous blood hemoglobin measurement (mass/volume) 9.9 g/dL 13.3-17.7 Blood hematocrit (volume fraction) 31 % 40-54 Automated erythrocyte mean corpuscular volume 81 [ foz_us] 80-99 Automated erythrocyte mean corpuscular h emoglobin (mass per erythrocyte) 25 pg 25-34 Automated erythrocyte mean corpuscular h emoglobin concentration measurement (mass/volume) 32 g/dL 32-36 Automated erythrocyte distribution width ratio 16. 6 % 10.0- 14.5 Automated blood platelet count (count/volume) 276 10*3/uL 130-400 Automated blood platelet mean volume measurement 8.5 [foz_us] 7.4-10.4 Automated blood neutrophils/100 leukocytes 72 % 42-75 Automated blood lymphocytes/100 leukocytes 19 % 12-44 Blood monocytes/100 leukocytes 4 % 0-12 Automated blood eosinophils/100 leukocytes 4 % 0-10 Automated blood basophils/100 leukocytes 0 % 0-10 Blood neutrophils automated count (number/volume) 8.1 10*3 1.8-7.8 Blood lymphocytes automated count (number/volume) 2.2 10*3 1.0-4.0 Blood monocytes automated count (number/volume) 0. 5 10*3 0.0-1.0 Automated eosinophil count 0.4 10*3/uL 0 .0-0.3 Automated blood basophil count (count/volume) 0.1 10*3/uL 0.0-0.1 Comprehensive metabolic panel - 04/03/18 15:00 Serum or plasma sodium measurement (moles/volume) 138 mmol/L 135-145 Serum or plasma potassium measurement (moles/volume) 4.6 mmol/L 3.6-5.0 Serum or plasma chloride measurement (moles/volume) 105 mmol/L 98-107 Carbon dioxide 23 mmol/L 21-32 Serum or plasma anion gap determination (moles/volume) 10 mmol/L 5-14 Serum or plasma urea nitrogen measurement (mass/volume ) 37 mg/dL 7-18 Serum or plasma creatinine measurement (mass/volume) 1.82 mg/dL 0.60-1.30 Serum or plasma urea nitrogen/creatinine mass ratio 20 NRG Serum or plasma creatinine measurement w ith calculation of estimated glomerular filtration rate 35 NRG Serum or plasma glucose measurement (mass/volume) 122 mg/dL 70-105 Serum or plasma calcium measurement (mass/volume) 8.9 mg/dL 8.5-10.1 Serum or plasma total bilirubin measurement (mass/volu me) 0.3 mg/dL 0.1-1.0 Serum or plasma alkaline phosphatase [place] sure[place] (enzymatic activity/volume) 177 U/L 40-136 Serum or plasma aspartate aminotransfera se measurement (enzymatic activity/volume) 44 U/L 5-34 Serum or plasma alanine aminotransferase measurement (enzymatic activity/volume) 59 U/L 0-55 Serum or plasma protein measurement (mass/volume) 6.8 g/dL 6.4-8.2 Serum or plasma albumin measurement (mass/volume) 3.2 g/dL 3.2-4.5 CALCIUM CORRECTED 9.5 mg/dL 8.5-10.1 Serum or plasma C reactive protein measu rement (mass/volume) - 04/03/18 15:00 Serum or plasma C reactive protein measurement (mass/v olume) 3.22 mg/dL 0.00-0.50 Complete blood count (CBC) with automate d white blood cell (WBC) differential - 04/10/18 14:40 Blood leukocytes automated count (number/volume) 8.2 10*3/uL 4.3-11.0 Blood erythrocytes automated count (number/volume) 3.78 10*6/uL 4.35-5.85 Venous blood hemoglobin measurement (mass/volume) 9.5 g/dL 13.3-17.7 Blood hematocrit (volume fraction) 31 % 40-54 Automated erythrocyte mean corpuscular volume 83 [ foz_us] 80-99 Automated erythrocyte mean corpuscular h emoglobin (mass per erythrocyte) 25 pg 25-34 Automated erythrocyte mean corpuscular h emoglobin concentration measurement (mass/volume) 30 g/dL 32-36 Automated erythrocyte distribution width ratio 16. 7 % 10.0- 14.5 Automated blood platelet count (count/volume) 256 10*3/uL 130-400 Automated blood platelet mean volume measurement 8.6 [foz_us] 7.4-10.4 Automated blood neutrophils/100 leukocytes 70 % 42-75 Automated blood lymphocytes/100 leukocytes 19 % 12-44 Blood monocytes/100 leukocytes 8 % 0-12 Automated blood eosinophils/100 leukocytes 3 % 0-10 Automated blood basophils/100 leukocytes 1 % 0-10 Blood neutrophils automated count (number/volume) 5.7 10*3 1.8-7.8 Blood lymphocytes automated count (number/volume) 1.6 10*3 1.0-4.0 Blood monocytes automated count (number/volume) 0. 7 10*3 0.0-1.0 Automated eosinophil count 0.2 10*3/uL 0 .0-0.3 Automated blood basophil count (count/volume) 0.0 10*3/uL 0.0-0.1 Comprehensive metabolic panel - 04/10/18 14:40 Serum or plasma sodium measurement (moles/volume) 138 mmol/L 135-145 Serum or plasma potassium measurement (moles/volume) 4.7 mmol/L 3.6-5.0 Serum or plasma chloride measurement (moles/volume) 104 mmol/L 98-107 Carbon dioxide 26 mmol/L 21-32 Serum or plasma anion gap determination (moles/volume) 8 mmol/L 5-14 Serum or plasma urea nitrogen measurement (mass/volume ) 45 mg/dL 7-18 Serum or plasma creatinine measurement (mass/volume) 1.88 mg/dL 0.60-1.30 Serum or plasma urea nitrogen/creatinine mass ratio 24 NRG Serum or plasma creatinine measurement w ith calculation of estimated glomerular filtration rate 34 NRG Serum or plasma glucose measurement (mass/volume) 85 mg/dL 70-105 Serum or plasma calcium measurement (mass/volume) 8.5 mg/dL 8.5-10.1 Serum or plasma total bilirubin measurement (mass/volu me) 0.3 mg/dL 0.1-1.0 Serum or plasma alkaline phosphatase [place] sure[place] (enzymatic activity/volume) 129 U/L 40-136 Serum or plasma aspartate aminotransfera se measurement (enzymatic activity/volume) 22 U/L 5-34 Serum or plasma alanine aminotransferase measurement (enzymatic activity/volume) 24 U/L 0-55 Serum or plasma protein measurement (mass/volume) 6.4 g/dL 6.4-8.2 Serum or plasma albumin measurement (mass/volume) 3.3 g/dL 3.2-4.5 CALCIUM CORRECTED 9.1 mg/dL 8.5-10.1 Complete urinalysis with reflex to cultu re - 04/10/18 17:02 Urine color determination YELLOW NRG Urine clarity determination SLIGHTLY CLOUDY NRG Urine pH measurement by test strip 5 5-9 Specific gravity of urine by test strip 1.015 1.016-1.022 Urine protein assay by test strip, semi-quantitative NEGATIVE NEGATIVE Urine glucose detection by automated test strip NE GATIVE NEGATIVE Erythrocytes detection in urine sediment by light micr oscopy NEGATIVE NEGATIVE Urine ketones detection by automated test strip NE GATIVE NEGATIVE Urine nitrite detection by test strip NEGATIVE NEGATIVE Urine total bilirubin detection by test strip NEGA TIVE NEGATIVE Urine urobilinogen measurement by automated test strip (mass/volume) NORMAL NORMAL Urine leukocyte esterase detection by dipstick 3+ NEGATIVE Automated urine sediment erythrocyte cou nt by microscopy (number/high power field) NONE NRG Automated urine sediment leukocyte count by microscopy (number/high power field) [HPF] NRG Bacteria detection in urine sediment by light microsco py TRACE NRG Crystals detection in urine sediment by light microsco py NONE NRG Casts detection in urine sediment by light microscopy PRESENT NRG Mucus detection in urine sediment by light microscopy SMALL NRG Complete urinalysis with reflex to culture YES NRG Hyaline casts detection in urine sediment by light yvan roscopy 2-5 NRG Bacterial urine culture - 04/10/18 17:02 Bacterial urine culture YEAST NRG COLONY COUNT <10,000 NRG FTX;REPORTABLE RML SENT AMENDED REPORT 04/12/18 09:0 5 NRG Bacteria identification in isolate by an aerobe culture - 03/12/19 11:00 Bacteria identification in isolate by anaerobe culture NOANA NRG Gram stain microscopy - 03/12/19 11:00 Gram stain microscopy no bacteria seen NRG Bacteria identification in wound by cult ure - 03/12/19 11:00 Bacteria identification in wound by culture [id number] NRG FREE TEXT EXTERNAL PRELIMINARY RAPID ID TESTING AT [facility] NRG QUANTITY OF GROWTH FEW NRG MRSA AGAR RML REPORTED MRSA 03/14/19 12:05 NRG FREE TEXT ENTRY 2 ID CONFIRMED BY RML N RG CALL POSITIVES (F1 HELP) PRESUMP CALLED TO Matteo IGLESIAS/TORI AT 1100, 03-13-19/KD NRG PBP2 PRESUMPTIVE MRSA; SCREENING AT [facility] NRG Dirithromycin susceptibility test by dis k diffusion - 03/12/19 11:00 Oxacillin susceptibility test by minimum inhibitory co ncentration > NRG Clindamycin susceptibility test by minimum inhibitory concentration > NRG Erythromycin susceptibility test by minimum inhibitory concentration > NRG Trimethoprim/sulfamethoxazole susceptibi lity test by minimum inhibitoryconcentration <= NRG Vancomycin susceptibility test by minimum inhibitory c oncentration 1 NRG Levofloxacin susceptibility test by minimum inhibitory concentration > NRG Rifampin susceptibility test by minimum inhibitory con centration <= NRG Cefazolin susceptibility test by minimum inhibitory co ncentration > NRG Linezolid susceptibility test by minimum inhibitory co ncentration <= NRG Penicillin G susceptibility test by minimum inhibitory concentration > NRG Moxifloxacin susceptibility test by minimum inhibitory concentration > NRG Minocycline susc YVAN <= NRG Whole blood basic metabolic panel - 03/08 05/27 11:33 Serum or plasma sodium measurement (moles/volume) 142 mmol/L 135-145 Serum or plasma potassium measurement (moles/volume) 4.8 mmol/L 3.6-5.0 Serum or plasma chloride measurement (moles/volume) 108 mmol/L 98-107 Carbon dioxide 24 mmol/L 21-32 Serum or plasma anion gap determination (moles/volume) 10 mmol/L 5-14 Serum or plasma urea nitrogen measurement (mass/volume ) 36 mg/dL 7-18 Serum or plasma creatinine measurement (mass/volume) 1.68 mg/dL 0.60-1.30 Serum or plasma urea nitrogen/creatinine mass ratio 21 NRG Serum or plasma creatinine measurement w ith calculation of estimated glomerular filtration rate 39 NRG Serum or plasma glucose measurement (mass/volume) 104 mg/dL 70-105 Serum or plasma calcium measurement (mass/volume) 9.3 mg/dL 8.5-10.1 Whole blood basic metabolic panel - 03/08 11/24 11:30 Serum or plasma sodium measurement (moles/volume) 138 mmol/L 135-145 Serum or plasma potassium measurement (moles/volume) 6.5 mmol/L 3.6-5.0 Serum or plasma chloride measurement (moles/volume) 107 mmol/L 98-107 Carbon dioxide 22 mmol/L 21-32 Serum or plasma anion gap determination (moles/volume) 9 mmol/L 5-14 Serum or plasma urea nitrogen measurement (mass/volume ) 40 mg/dL 7-18 Serum or plasma creatinine measurement (mass/volume) 2.29 mg/dL 0.60-1.30 Serum or plasma urea nitrogen/creatinine mass ratio 17 NRG Serum or plasma creatinine measurement w ith calculation of estimated glomerular filtration rate 27 NRG Serum or plasma glucose measurement (mass/volume) 94 mg/dL 70-105 Serum or plasma calcium measurement (mass/volume) 9.5 mg/dL 8.5-10.1 Complete blood count (CBC) with automate d white blood cell (WBC) differential - 03/25/19 15:40 Blood leukocytes automated count (number/volume) 9.5 10*3/uL 4.3-11.0 Blood erythrocytes automated count (number/volume) 5.33 10*6/uL 4.35-5.85 Venous blood hemoglobin measurement (mass/volume) 12.6 g/dL 13.3-17.7 Blood hematocrit (volume fraction) 40 % 40-54 Automated erythrocyte mean corpuscular volume 76 [ foz_us] 80-99 Automated erythrocyte mean corpuscular h emoglobin (mass per erythrocyte) 24 pg 25-34 Automated erythrocyte mean corpuscular h emoglobin concentration measurement (mass/volume) 31 g/dL 32-36 Automated erythrocyte distribution width ratio 18. 2 % 10.0- 14.5 Automated blood platelet count (count/volume) 258 10*3/uL 130-400 Automated blood platelet mean volume measurement 8.4 [foz_us] 7.4-10.4 Automated blood neutrophils/100 leukocytes 70 % 42-75 Automated blood lymphocytes/100 leukocytes 18 % 12-44 Blood monocytes/100 leukocytes 7 % 0-12 Automated blood eosinophils/100 leukocytes 4 % 0-10 Automated blood basophils/100 leukocytes 0 % 0-10 Blood neutrophils automated count (number/volume) 6.6 10*3 1.8-7.8 Blood lymphocytes automated count (number/volume) 1.7 10*3 1.0-4.0 Blood monocytes automated count (number/volume) 0. 7 10*3 0.0-1.0 Automated eosinophil count 0.4 10*3/uL 0 .0-0.3 Automated blood basophil count (count/volume) 0.0 10*3/uL 0.0-0.1 Comprehensive metabolic panel - 03/25/19 15:40 Serum or plasma sodium measurement (moles/volume) 137 mmol/L 135-145 Serum or plasma potassium measurement (moles/volume) 6.4 mmol/L 3.6-5.0 Serum or plasma chloride measurement (moles/volume) 107 mmol/L 98-107 Carbon dioxide 21 mmol/L 21-32 Serum or plasma anion gap determination (moles/volume) 9 mmol/L 5-14 Serum or plasma urea nitrogen measurement (mass/volume ) 43 mg/dL 7-18 Serum or plasma creatinine measurement (mass/volume) 2.45 mg/dL 0.60-1.30 Serum or plasma urea nitrogen/creatinine mass ratio 18 NRG Serum or plasma creatinine measurement w ith calculation of estimated glomerular filtration rate 25 NRG Serum or plasma glucose measurement (mass/volume) 148 mg/dL 70-105 Serum or plasma calcium measurement (mass/volume) 9.4 mg/dL 8.5-10.1 Serum or plasma total bilirubin measurement (mass/volu me) 0.2 mg/dL 0.1-1.0 Serum or plasma alkaline phosphatase [place] (enzymatic activity/volume) 85 U/L 40-136 Serum or plasma aspartate aminotransfera se measurement (enzymatic activity/volume) 31 U/L 5-34 Serum or plasma alanine aminotransferase measurement (enzymatic activity/volume) 29 U/L 0-55 Serum or plasma protein measurement (mass/volume) 7.3 g/dL 6.4-8.2 Serum or plasma albumin measurement (mass/volume) 3.9 g/dL 3.2-4.5 CALCIUM CORRECTED 9.5 mg/dL 8.5-10.1 Complete urinalysis with reflex to cultu re - 03/25/19 15:50 Urine color determination YELLOW NRG Urine clarity determination CLEAR NR G Urine pH measurement by test strip 6.0 5-9 Specific gravity of urine by test strip 1.020 1.016-1.022 Urine protein assay by test strip, semi-quantitative NEGATIVE NEGATIVE Urine glucose detection by automated test strip NE GATIVE NEGATIVE Erythrocytes detection in urine sediment by light micr oscopy NEGATIVE NEGATIVE Urine ketones detection by automated test strip NE GATIVE NEGATIVE Urine nitrite detection by test strip NEGATIVE NEGATIVE Urine total bilirubin detection by test strip NEGA TIVE NEGATIVE Urine urobilinogen measurement by automated test strip (mass/volume) 0.2 mg/dL < = 1.0 Urine leukocyte esterase detection by dipstick TRA CE NEGATIVE Automated urine sediment erythrocyte cou nt by microscopy (number/high power field) [HPF] NRG Automated urine sediment leukocyte count by microscopy (number/high power field) [HPF] NRG Bacteria detection in urine sediment by light microsco py NEGATIVE NRG Squamous epithelial cells detection in u rine sediment by light microscopy RARE NRG Crystals detection in urine sediment by light microsco py NONE NRG Casts detection in urine sediment by light microscopy PRESENT NRG Mucus detection in urine sediment by light microscopy NEGATIVE NRG Complete urinalysis with reflex to culture NO NRG Granular casts detection in urine sediment by light mi croscopy 0-2 NRG Whole blood basic metabolic panel - 03/08 12/25 11:15 Serum or plasma sodium measurement (moles/volume) 138 mmol/L 135-145 Serum or plasma potassium measurement (moles/volume) 5.5 mmol/L 3.6-5.0 Serum or plasma chloride measurement (moles/volume) 106 mmol/L 98-107 Carbon dioxide 20 mmol/L 21-32 Serum or plasma anion gap determination (moles/volume) 12 mmol/L 5-14 Serum or plasma urea nitrogen measurement (mass/volume ) 39 mg/dL 7-18 Serum or plasma creatinine measurement (mass/volume) 2.31 mg/dL 0.60-1.30 Serum or plasma urea nitrogen/creatinine mass ratio 17 NRG Serum or plasma creatinine measurement w ith calculation of estimated glomerular filtration rate 27 NRG Serum or plasma glucose measurement (mass/volume) 104 mg/dL 70-105 Serum or plasma calcium measurement (mass/volume) 9.2 mg/dL 8.5-10.1 Whole blood basic metabolic panel - 03/09 09/24 11:35 Serum or plasma sodium measurement (moles/volume) 140 mmol/L 135-145 Serum or plasma potassium measurement (moles/volume) 5.4 mmol/L 3.6-5.0 Serum or plasma chloride measurement (moles/volume) 108 mmol/L 98-107 Carbon dioxide 21 mmol/L 21-32 Serum or plasma anion gap determination (moles/volume) 11 mmol/L 5-14 Serum or plasma urea nitrogen measurement (mass/volume ) 44 mg/dL 7-18 Serum or plasma creatinine measurement (mass/volume) 1.87 mg/dL 0.60-1.30 Serum or plasma urea nitrogen/creatinine mass ratio 24 NRG Serum or plasma creatinine measurement w ith calculation of estimated glomerular filtration rate 34 NRG Serum or plasma glucose measurement (mass/volume) 75 mg/dL 70-105 Serum or plasma calcium measurement (mass/volume) 9.8 mg/dL 8.5-10.1 Whole blood basic metabolic panel - 05/28 11:40 Serum or plasma sodium measurement (moles/volume) 141 mmol/L 135-145 Serum or plasma potassium measurement (moles/volume) 5.3 mmol/L 3.6-5.0 Serum or plasma chloride measurement (moles/volume) 108 mmol/L 98-107 Carbon dioxide 21 mmol/L 21-32 Serum or plasma anion gap determination (moles/volume) 12 mmol/L 5-14 Serum or plasma urea nitrogen measurement (mass/volume ) 37 mg/dL 7-18 Serum or plasma creatinine measurement (mass/volume) 1.63 mg/dL 0.60-1.30 Serum or plasma urea nitrogen/creatinine mass ratio 23 NRG Serum or plasma creatinine measurement w ith calculation of estimated glomerular filtration rate 40 NRG Serum or plasma glucose measurement (mass/volume) 98 mg/dL 70-105 Serum or plasma calcium measurement (mass/volume) 9.4 mg/dL 8.5-10.1 Gram stain microscopy - 04/23/19 11:06 Gram stain microscopy No bacteria seen NRG Bacteria identification in wound by cult ure - 04/23/19 11:06 Bacteria identification in wound by culture [id number] NRG FREE TEXT EXTERNAL SUSCEPTIBILITY REPOTED 04/26 12: 15 NRG QUANTITY OF GROWTH Moderate Growth NRG FREE TEXT ENTRY 2 PRELIM RAPID ID TEST AT [facility] 04/24 8:25 NRG FREE TEXT ENTRY 3 RML CONFIRMED ID 04/25 06:05 NRG Dirithromycin susceptibility test by dis k diffusion - 04/23/19 11:06 Oxacillin susceptibility test by minimum inhibitory co ncentration > NRG Clindamycin susceptibility test by minimum inhibitory concentration > NRG Erythromycin susceptibility test by minimum inhibitory concentration > NRG Trimethoprim/sulfamethoxazole susceptibi lity test by minimum inhibitoryconcentration <= NRG Vancomycin susceptibility test by minimum inhibitory c oncentration 1 NRG Levofloxacin susceptibility test by minimum inhibitory concentration > NRG Rifampin susceptibility test by minimum inhibitory con centration <= NRG Cefazolin susceptibility test by minimum inhibitory co ncentration > NRG Linezolid susceptibility test by minimum inhibitory co ncentration 2 NRG Penicillin G susceptibility test by minimum inhibitory concentration > NRG Moxifloxacin susceptibility test by minimum inhibitory concentration > NRG Minocycline susc YVAN <= NRG CMP - 04/28/19 14:00 GLUCOSE 119 mg/dL 65-99 UREA NITROGEN (BUN) 42 mg/dL 7-25 CREATININE 1.70 mg/dL 0.70-1.11 eGFR NON-AFR. [place] 35 mL/min/1.73m2 > OR = 60 eGFR 41 mL/min/1.73m2 > OR = 60 BUN/CREATININE RATIO 25 (calc) 6-22 SODIUM 144 mmol/L 135-146 POTASSIUM 5.2 mmol/L 3.5-5.3 CHLORIDE 108 mmol/L 98-110 CARBON DIOXIDE 27 mmol/L 20-32 CALCIUM 9.1 mg/dL 8.6-10.3 PROTEIN, TOTAL 6.8 g/dL 6.1-8.1 ALBUMIN 3.7 g/dL 3.6-5.1 GLOBULIN 3.1 g/dL (calc) 1.9-3.7 ALBUMIN/GLOBULIN RATIO 1.2 (calc) 1.0-2. 5 BILIRUBIN, TOTAL 0.3 mg/dL 0.2-1.2 ALKALINE PHOSPHATASE 84 U/L 40-115 AST 19 U/L 10-35 ALT 18 U/L 9-46 URIC ACID, SERUM - 04/28/19 14:00 URIC ACID 6.1 mg/dL 4.0-8.0 CBC - 04/28/19 14:00 WHITE BLOOD CELL COUNT 9.5 Thousand/uL 3 .8-10.8 RED BLOOD CELL COUNT 5.32 Million/uL 4.2 0-5.80 HEMOGLOBIN 12.9 g/dL 13.2-17.1 HEMATOCRIT 40.8 % 38.5-50.0 MCV 76.7 fL 80.0-100.0 MCH 24.2 pg 27.0-33.0 MCHC 31.6 g/dL 32.0-36.0 RDW 15.8 % 11.0-15.0 PLATELET COUNT 228 Thousand/uL 140-400 MPV 9.1 fL 7.5-12.5 ABSOLUTE NEUTROPHILS 6565 cells/uL 1500- 7800 ABSOLUTE LYMPHOCYTES 1938 cells/uL 850-3 900 ABSOLUTE MONOCYTES 608 cells/uL 200-950 ABSOLUTE EOSINOPHILS 342 cells/uL 15-500 ABSOLUTE BASOPHILS 48 cells/uL 0-200 NEUTROPHILS 69.1 % NRG LYMPHOCYTES 20.4 % NRG MONOCYTES 6.4 % NRG EOSINOPHILS 3.6 % NRG BASOPHILS 0.5 % NRG VITAMIN D, 25-H - 04/28/19 14:00 VITAMIN D,25-OH,TOTAL,IA 32 ng/mL 30-10 0 PTH (INTACT) - 04/28/19 14:00 CALCIUM 9.3 mg/dL 8.6-10.3 PARATHYROID HORMONE, INTACT 91 pg/mL 14 -64 PROTEIN, TOTAL W/CREAT, RANDOM URINE - 0 04/29/19 09:54 CREATININE, RANDOM URINE 68 mg/dL 20-32 0 PROTEIN/CREATININE RATIO 324 mg/g creat 22-128 PROTEIN, TOTAL, RANDOM UR 22 mg/dL 5-25 Complete blood count (CBC) with automate d white blood cell (WBC) differential - 07/01/19 15:10 Blood leukocytes automated count (number/volume) 12.1 10*3/uL 4.3-11.0 Blood erythrocytes automated count (number/volume) 5.16 10*6/uL 4.35-5.85 Venous blood hemoglobin measurement (mass/volume) 12.6 g/dL 13.3-17.7 Blood hematocrit (volume fraction) 40 % 40-54 Automated erythrocyte mean corpuscular volume 78 [ foz_us] 80-99 Automated erythrocyte mean corpuscular h emoglobin (mass per erythrocyte) 24 pg 25-34 Automated erythrocyte mean corpuscular h emoglobin concentration measurement (mass/volume) 31 g/dL 32-36 Automated erythrocyte distribution width ratio 17. 6 % 10.0- 14.5 Automated blood platelet count (count/volume) 267 10*3/uL 130-400 Automated blood platelet mean volume measurement 8.3 [foz_us] 7.4-10.4 Automated blood neutrophils/100 leukocytes 74 % 42-75 Automated blood lymphocytes/100 leukocytes 16 % 12-44 Blood monocytes/100 leukocytes 6 % 0-12 Automated blood eosinophils/100 leukocytes 4 % 0-10 Automated blood basophils/100 leukocytes 0 % 0-10 Blood neutrophils automated count (number/volume) 9.0 10*3 1.8-7.8 Blood lymphocytes automated count (number/volume) 1.9 10*3 1.0-4.0 Blood monocytes automated count (number/volume) 0. 8 10*3 0.0-1.0 Automated eosinophil count 0.4 10*3/uL 0 .0-0.3 Automated blood basophil count (count/volume) 0.0 10*3/uL 0.0-0.1 PT panel in platelet poor plasma by coag ulation assay - 07/01/19 15:10 Prothrombin time (PT) in platelet poor plasma by coagu lation assay 16.0 s 12.2-14.7 INR in platelet poor plasma or blood by coagulation as say 1.2 0.8-1.4 Activated partial thromboplastin time (a PTT) in platelet poor plasma bycoagulation assay - 07/01/19 15:10 Activated partial thromboplastin time (a PTT) in platelet poor plasma bycoagulation assay 33 s 24-35 Comprehensive metabolic panel - 07/01/19 15:10 Serum or plasma sodium measurement (moles/volume) 140 mmol/L 135-145 Serum or plasma potassium measurement (moles/volume) 4.5 mmol/L 3.6-5.0 Serum or plasma chloride measurement (moles/volume) 105 mmol/L 98-107 Carbon dioxide 23 mmol/L 21-32 Serum or plasma anion gap determination (moles/volume) 12 mmol/L 5-14 Serum or plasma urea nitrogen measurement (mass/volume ) 41 mg/dL 7-18 Serum or plasma creatinine measurement (mass/volume) 1.71 mg/dL 0.60-1.30 Serum or plasma urea nitrogen/creatinine mass ratio 24 NRG Serum or plasma creatinine measurement w ith calculation of estimated glomerular filtration rate 38 NRG Serum or plasma glucose measurement (mass/volume) 184 mg/dL 70-105 Serum or plasma calcium measurement (mass/volume) 9.4 mg/dL 8.5-10.1 Serum or plasma total bilirubin measurement (mass/volu me) 0.2 mg/dL 0.1-1.0 Serum or plasma alkaline phosphatase [place] sure[place] (enzymatic activity/volume) 79 U/L 40-136 Serum or plasma aspartate aminotransfera se measurement (enzymatic activity/volume) 24 U/L 5-34 Serum or plasma alanine aminotransferase measurement (enzymatic activity/volume) 25 U/L 0-55 Serum or plasma protein measurement (mass/volume) 7.7 g/dL 6.4-8.2 Serum or plasma albumin measurement (mass/volume) 3.7 g/dL 3.2-4.5 CALCIUM CORRECTED 9.6 mg/dL 8.5-10.1 Blood lactic acid measurement (moles/vol ume) - 07/01/19 15:10 Blood lactic acid measurement (moles/volume) 2.15 mmol/L 0.50-2.00 Serum or plasma troponin i.cardiac measu rement (mass/volume) - 07/01/19 15:10 Serum or plasma troponin i.cardiac measurement (mass/v olume) < ng/mL <0.028 Serum or plasma lithium measurement (mol es/volume) - 07/01/19 15:10 BNP PT 139.9 pg/mL <100.0 Influenza virus A and B antigen detectio n - 07/01/19 15:34 FLU RESULT NEGATIVE FOR INFLUENZA A AND B ANTIGENS BY IA NRG Complete urinalysis with reflex to cultu re - 07/01/19 16:30 Urine color determination YELLOW NRG Urine clarity determination CLEAR NR G Urine pH measurement by test strip 5.5 5-9 Specific gravity of urine by test strip 1.025 1.016-1.022 Urine protein assay by test strip, semi-quantitative TRACE NEGATIVE Urine glucose detection by automated test strip NE GATIVE NEGATIVE Erythrocytes detection in urine sediment by light micr oscopy NEGATIVE NEGATIVE Urine ketones detection by automated test strip NE GATIVE NEGATIVE Urine nitrite detection by test strip NEGATIVE NEGATIVE Urine total bilirubin detection by test strip NEGA TIVE NEGATIVE Urine urobilinogen measurement by automated test strip (mass/volume) 0.2 mg/dL < = 1.0 Urine leukocyte esterase detection by dipstick TRA CE NEGATIVE Automated urine sediment erythrocyte cou nt by microscopy (number/high power field) RARE NRG Automated urine sediment leukocyte count by microscopy (number/high power field) [HPF] NRG Bacteria detection in urine sediment by light microsco py FEW NRG Squamous epithelial cells detection in u rine sediment by light microscopy 0-2 NRG Crystals detection in urine sediment by light microsco py NONE NRG Casts detection in urine sediment by light microscopy NONE NRG Mucus detection in urine sediment by light microscopy NEGATIVE NRG Complete urinalysis with reflex to culture CULTURE PENDING NRG Encounters ACCT No. Visit Date/Time Discharge Status Pt. Type Provider Facility Loc./Unit Complaint [id number] 05/05/2019 14:00:00 05/05/2019 23:59: 59 [id number] 04/29/2019 10:00:00 Document Registration [id number] 04/28/2019 13:20:00 Document Registration [id number] 07/01/2019 15:03:00 17:37:00 DIS Emergency NILS SKINNER [facility] ER SOA [id number] 05/21/2019 10:28:00 23:59:59 CLS Outpatient TANIA SINGH MD [facility] WOUNDCARE [id number] 05/07/2019 10:27:00 23:59:59 CLS Outpatient TANIA SINGH MD [facility] [id number] 04/30/2019 10:23:00 23:59:59 CLS Outpatient TANIA SINGH MD [facility] [id number] 04/23/2019 10:23:00 23:59:59 CLS Outpatient TANIA SINGH MD [facility] [id number] 04/16/2019 11:23:00 23:59:59 CLS Outpatient TANIA SINGH MD [facility] RAD [id number] 04/16/2019 10:32:00 23:59:59 CLS Outpatient TANIA SINGH MD [facility] WOUNDCARE [id number] 04/09/2019 11:21:00 23:59:59 CLS Outpatient [address]ON[address] [facility] LAB TYPE 2 DIABETES [id number] 04/09/2019 10:28:00 23:59:59 CLS Outpatient DIEUDONNE [address] [facility] [id number] 04/02/2019 11:22:00 23:59:59 CLS Outpatient DIEUDONNE, [address] DRIVER [facility] LAB [id number] 04/02/2019 10:28:00 23:59:59 CLS Outpatient DIEUDONNE, [address] [facility] [id number] 03/26/2019 11:08:00 23:59:59 CLS Outpatient DIEUDONNE [address] [facility] LAB TYPE 2 DIABETES [id number] 03/26/2019 10:26:00 23:59:59 CLS Outpatient DIEUDONNE [address] [facility] [id number] 03/25/2019 11:26:00 23:59:59 CLS Outpatient DIEUDONNE [address] [facility] LAB ROUTINE LAB [id number] 03/25/2019 14:58:00 17:02:00 DIS Emergency NILS SKINNER [facility] ER REACTION TO ANTIBIOTIC [id number] 03/19/2019 11:21:00 23:59:59 CLS Outpatient DIEUDONNE [address] [facility] LAB WOUND [id number] 03/19/2019 10:28:00 23:59:59 CLS Outpatient DIEUDONNE [address] [facility] [id number] 03/12/2019 10:26:00 23:59:59 CLS Outpatient DIEUDONNE, [address] [facility] [id number] 03/03/2019 10:15:00 23:59:59 CLS Outpatient DIEUDONNE, [address] [facility] [id number] 02/26/2019 10:36:00 23:59:59 CLS Outpatient DIEUDONNE, [address] [facility] [id number] 02/19/2019 10:40:00 23:59:59 CLS Outpatient DIEUDONNE, [address] [facility] RAD TYPE 2 DIABETES [id number] 02/19/2019 09:06:00 23:59:59 CLS Outpatient DIEUDONNE, [address] [facility] [id number] 09/02/2018 08:43:00 23:59:59 CLS Outpatient DIEDUONNE, [address] [facility] [id number] 08/07/2018 10:07:00 23:59:59 CLS Outpatient DIEUDONNE, [address] [facility] [id number] 08/05/2018 11:57:00 23:59:59 CLS Preadmit EMILEE GARVIN, NOEMI Felipe [facility] CARD CHRONIC AFIB [id number] 07/31/2018 10:02:00 23:59:59 CLS Outpatient DIEUDONNE, [address] [facility] [id number] 07/24/2018 16:40:00 23:59:59 CLS Outpatient DIEUDONNE, [address] [facility] [id number] 04/10/2018 14:33:00 17:20:00 DIS Emergency ALICIA SOTELO MD [facility] ER DECLINING HR [id number] 04/03/2018 14:49:00 17:01:00 DIS Emergency EDWIN GARVIN, RICK Adan [facility] ER WEAKNESS [id number] 03/27/2018 10:31:00 14:00:00 DIS Inpatient DIRK GARVIN, MARTHA Gibson [facility] 4TH RT LOWER LOSE PNA, LEFT NECK PAIN [id number] 01/31/2018 10:18:00 23:59:59 CLS Outpatient WESLEY BRO APRN [facility] WOUNDCARE [id number] 01/24/2018 10:46:00 23:59:59 CLS Outpatient HOMERO CARRILLO MD [facility] [id number] 01/17/2018 10:32:00 23:59:59 CLS Outpatient HOMERO CARRILLO MD [facility] [id number] 01/17/2018 11:53:00 13:23:00 DIS Outpatient PREET PASCUAL MD [facility] IRON DEFICIENCY ANEMIA [id number] 01/10/2018 10:34:00 23:59:59 CLS Outpatient WESLEY BRO APRN [facility] WOUND[facility] [id number] 01/03/2018 10:38:00 23:59:59 CLS Outpatient HOMERO CARRILLO MD [facility] [id number] 12/25/2017 13:35:00 23:59:59 CLS Outpatient HOMERO CARRILLO MD [facility] [id number] 12/20/2017 10:34:00 23:59:59 CLS Outpatient HOMERO CARRILLO MD [facility] [id number] 12/12/2017 10:29:00 23:59:59 CLS Outpatient HOMERO CARRILLO MD [facility] [id number] 12/06/2017 10:26:00 23:59:59 CLS Outpatient HOMERO CARRILLO MD [facility] [id number] 11/29/2017 10:41:00 018 23:59:59 CLS Outpatient HOMERO CARRILLO MD [facility] [id number] 11/22/2017 10:43:00 018 23:59:59 CLS Outpatient HOMERO CARRILLO MD [facility] [id number] 11/01/2017 09:54:00 018 23:59:59 CLS Outpatient HOMERO CARRILLO MD [facility] [id number] 10/18/2017 09:42:00 018 23:59:59 CLS Outpatient HOMERO CARRILLO MD [facility] [id number] 10/10/2017 13:47:00 018 23:59:59 CLS Outpatient HOMERO CARRILLO MD [facility] [id number] 10/04/2017 09:58:00 018 23:59:59 CLS Outpatient HOMERO CARRILLO MD [facility] [id number] 09/27/2017 09:16:00 018 23:59:59 CLS Outpatient HOMERO CARRILLO MD [facility] [id number] 09/27/2017 09:09:00 018 23:59:59 CLS Outpatient HOMERO CARRILLO MD [facility] RAD ATHEROSCLEROSIS OF FAREED VE ARTERIES OF RT LEG [id number] 09/20/2017 12:20:00 018 23:59:59 CLS Outpatient HOMERO CARRILLO MD [facility] LAB E11.621 [id number] 09/20/2017 09:25:00 018 23:59:59 CLS Outpatient HOMERO CARRILLO MD [facility] [id number] 07/12/2017 15:36:00 018 23:59:59 CLS Outpatient ISAAC MAR MD [facility] LABNPT NAUSEA/VOMITING
== END 2019-07-01 17:37 ==
LOC: EDUNIT# 15:01 → ER 15:03
DX: J44.1 Chronic obstructive pulmonary disease with (acute) exacerbation (principal); I48.91 Unspecified atrial fibrillation; G47.30 Sleep apnea, unspecified; I25.10 Atherosclerotic heart disease of native coronary artery without angina pectoris; E78.00 Pure hypercholesterolemia, unspecified; I10 Essential (primary) hypertension; I73.9 Peripheral vascular disease, unspecified; N40.0 Benign prostatic hyperplasia without lower urinary tract symptoms; K21.9 Gastro-esophageal reflux disease without esophagitis; E11.9 Type 2 diabetes mellitus without complications; F32.9 Major depressive disorder, single episode, unspecified; Z79.4 Long term (current) use of insulin; Z79.82 Long term (current) use of aspirin; Z79.899 Other long term (current) drug therapy
CPT/HCPCS: 36415; 71045; 80053; 81000; 83605; 83880; 84484; 85025; 85610; 85730; 87040; 87088; 87804; 93005; 94640